=== PATIENT | male | born 1955 | race American Indian/Alaskan Native ===

== ENCOUNTER 2018-09-16 19:32 | Inpatient (IN) | payer BC, OTHER ==
[2018-09-16] MEDS ORDERED: NITROSTAT SL ONE ×2 (19:41→19:53)
[2018-09-16] MEDS ORDERED: ASPIRIN PO ONE (19:43)
[2018-09-16] MEDS ORDERED: LASIX ONE (19:44)
--- NOTE | 2018-09-16 19:51 | Emergency Department Report ---
ED Shortness of Breath HPI - General Chief Complaint: Dyspnea/Respdistress Stated Complaint: LUIS FELIPE Time Seen by Provider: 09/16/18 19:46 Source: EMS Mode of arrival: Stretcher Limitations: No Limitations - History of Present Illness Initial Comments: Patient is 63 years old male with history of congestive heart failure, diabetes and CVA. Patient presented to the ER via EMS in acute respiratory distress. EMS stated that patient's initial oxygen saturation was in upper 80s, improved to 99% on nonrebreather. In the emergency room patient with difficulty in breathing with a blood pressure of 225/115. Patient immediately started on BiPAP. Receive Lasix 60 IV, nitroglycerin. MD Complaint: shortness of breath, chest pain -: Gradual, days(s) (2) Known History Of: congestive heart failure, diabetes - Related Data Home Medications Medication Instructions Recorded Confirmed Last Taken ALBUTEROL Inhaler (OR & NICU) 2 puff IH QID PRN 09/16/18 09/16/18 09/16/18 [Proair] Allopurinol [Zyloprim] 100 mg PO QDAY 09/16/18 09/16/18 09/16/18 Aspirin [Adult Aspirin] 81 mg PO DAILY 09/16/18 09/16/18 09/16/18 AtorvaSTATin [Lipitor] 40 mg PO QHS 09/16/18 09/16/18 09/16/18 Carvedilol [Coreg] 25 mg PO BID 09/16/18 09/16/18 09/16/18 Furosemide [Lasix TAB] 40 mg PO QDAY 09/16/18 09/16/18 09/16/18 Gabapentin [Neurontin] 600 mg PO BID 09/16/18 09/16/18 09/16/18 HYDROcodone/APAP 5-325 [[place] 1 each PO Q6HR PRN 09/16/18 09/16/18 09/16/18 5/325] Ibuprofen [Motrin] 800 mg PO Q8HR PRN 09/16/18 09/16/18 09/16/18 Isosorbide Mononitrate 60 mg PO DAILY 09/16/18 09/16/18 09/16/18 Lisinopril [Zestril TAB] 40 mg PO QDAY 09/16/18 09/16/18 09/16/18 Allergies Allergy/AdvReac Type Severity Reaction Status Date / Time No Known Allergies Allergy Unverified 02/23/15 14:38 ED Review of Systems ROS: Stated complaint: LUIS FELIPE Other details as noted in HPI Comment: All other systems reviewed and negative Constitutional: denies: chills, fever Respiratory: orthopnea, shortness of breath, SOB with exertion, SOB at rest. denies: wheezing Cardiovascular: chest pain. denies: palpitations Gastrointestinal: denies: abdominal pain, nausea, vomiting, diarrhea, constipation, hematemesis, hematochezia Musculoskeletal: denies: back pain Neurological: denies: headache, weakness ED Past Medical Hx - Past Medical History Previous Medical History?: Yes Hx Hypertension: Yes Hx CVA: Yes Hx Congestive Heart Failure: Yes Hx Diabetes: Yes - Surgical History Past Surgical History?: Yes Additional Surgical History: Right knee replacement. Twan Hip replacement - Social History Smoking Status: Unknown if ever smoked - Medications Home Medications: Home Medications Medication Instructions Recorded Confirmed Last Taken Type ALBUTEROL Inhaler (OR & NICU) 2 puff IH QID PRN 09/16/18 09/16/18 09/16/18 History [Proair] Allopurinol [Zyloprim] 100 mg PO QDAY 09/16/18 09/16/18 09/16/18 History Aspirin [Adult Aspirin] 81 mg PO DAILY 09/16/18 09/16/18 09/16/18 History AtorvaSTATin [Lipitor] 40 mg PO QHS 09/16/18 09/16/18 09/16/18 History Carvedilol [Coreg] 25 mg PO BID 09/16/18 09/16/18 09/16/18 History Furosemide [Lasix TAB] 40 mg PO QDAY 09/16/18 09/16/18 09/16/18 History Gabapentin [Neurontin] 600 mg PO BID 09/16/18 09/16/18 09/16/18 History HYDROcodone/APAP 5-325 [[place] 1 each PO Q6HR PRN 09/16/18 09/16/18 09/16/18 History 5/325] Ibuprofen [Motrin] 800 mg PO Q8HR PRN 09/16/18 09/16/18 09/16/18 History Isosorbide Mononitrate 60 mg PO DAILY 09/16/18 09/16/18 09/16/18 History Lisinopril [Zestril TAB] 40 mg PO QDAY 09/16/18 09/16/18 09/16/18 History ED Physical Exam - General Limitations: No Limitations General appearance: alert, in distress - Head Head exam: Present: atraumatic, normocephalic, normal inspection - Eye Eye exam: Present: normal appearance - ENT ENT exam: Present: normal exam, normal orophraynx, mucous membranes moist - Neck Neck exam: Present: normal inspection, full ROM. Absent: tenderness, meningismus, lymphadenopathy, thyromegaly - Respiratory Respiratory exam: Present: respiratory distress, rales, accessory muscle use, decreased breath sounds, prolonged expiratory. Absent: wheezes, rhonchi, stridor, chest wall tenderness - Cardiovascular Cardiovascular Exam: Present: tachycardia, gallop - GI/Abdominal GI/Abdominal exam: Present: soft, distended, normal bowel sounds. Absent: tenderness, guarding, rebound, rigid, organomegaly, mass, bruit, pulsatile mass, hernia - Extremities Exam Extremities exam: Present: normal inspection, full ROM, normal capillary refill, pedal edema. Absent: calf tenderness - Back Exam Back exam: Present: normal inspection, full ROM. Absent: tenderness, CVA tenderness (R), CVA tenderness (L), muscle spasm, paraspinal tenderness, vertebral tenderness, rash noted - Neurological Exam Neurological exam: Present: alert, oriented X3, CN II-XII intact - Psychiatric Psychiatric exam: Present: normal mood - Skin Skin exam: Present: warm, intact, normal color ED Course Vital Signs 09/16/18 09/16/18 09/16/18 19:36 19:38 19:48 Pulse Rate 106 H 90 Respiratory 29 H 30 H 32 H Rate Blood Pressure Blood Pressure [Right] O2 Sat by Pulse 99 99 100 Oximetry 09/16/18 09/16/18 09/16/18 20:00 20:01 20:15 Pulse Rate 85 84 Respiratory 17 21 Rate Blood Pressure 171/99 154/91 Blood Pressure 171/99 [Right] O2 Sat by Pulse 100 100 Oximetry 09/16/18 09/16/18 09/16/18 20:30 20:45 21:00 Pulse Rate 81 89 81 Respiratory 19 17 17 Rate Blood Pressure 143/82 163/99 158/83 Blood Pressure [Right] O2 Sat by Pulse 100 Oximetry 06/06/0509/16/18 09/16/18 21:15 21:30 21:45 Pulse Rate 80 80 77 Respiratory 19 11 L 15 Rate Blood Pressure 164/97 151/80 151/80 Blood Pressure [Right] O2 Sat by Pulse Oximetry 09/16/18 09/16/18 09/16/18 22:00 22:15 22:30 Pulse Rate 79 85 80 Respiratory 12 19 17 Rate Blood Pressure 174/97 192/110 168/84 Blood Pressure [Right] O2 Sat by Pulse Oximetry 09/16/18 09/16/18 09/16/18 22:45 23:27 23:30 Pulse Rate 82 84 Respiratory 20 12 22 Rate Blood Pressure 187/102 187/102 173/88 Blood Pressure [Right] O2 Sat by Pulse Oximetry - Reevaluation(s) Reevaluation #1: 09/16/18 23:33 [facility] was paged several times but every time they will say that Dr. German is busy and he will call back. - Consultations Consultation #1: 09/16/18 23:52 I discussed the patient is Dr. German from [facility], informed about the patient Dr. German stated that patient can be admitted to [facility] and he will follow up with the patient in the morning. ED Medical Decision Making - Lab Data Result diagrams: 09/16/18 19:54 09/16/18 19:54 Critical Care Time: Yes Critical care time in (mins) excluding proc time.: 45 Critical care attestation.: If time is entered above; I have spent that time in minutes in the direct care of this critically ill patient, excluding procedure time. ED Disposition Clinical Impression: Acute respiratory failure Qualifiers: Respiratory failure complication: hypoxia Qualified Code(s): J96.01 - Acute respiratory failure with hypoxia CHF exacerbation Qualifiers: Heart failure type: systolic Qualified Code(s): I50.23 - Acute on chronic systolic (congestive) heart failure Disposition: OP ADMIT IP TO THIS HOSP Is pt being admited?: Yes Condition: Stable Referrals: KORI LATHAM MD [Primary Care Provider] - 3-5 Days
[2018-09-16] MEDS ORDERED: LASIX IV ONE (19:53)
[2018-09-16 20:28] LABS: Hematocrit 35.8 % (35.5-45.6); Mean Corpuscular HGB Conc 31 % (32-34); Mean Corpuscular Volume 76 fl (84-94); Platelet Count 331 K/mm3 (140-440); Red Blood Count 4.74 M/mm3 (3.65-5.03)
[2018-09-16 20:33] LABS: INR 1.13 (0.87-1.13)
[2018-09-16 20:34] LABS: Partial Thromboplastin Time 25.9 Sec. (24.2-36.6)
[2018-09-16 20:44] LABS: BUN/Creatinine Ratio 11; Blood Urea Nitrogen 9 mg/dL (9-20); Calcium 8.4 mg/dL (8.4-10.2); Hemolysis Index 13
[2018-09-16 21:08] LABS: Band Neutrophils # (Manual) 0.1 K/mm3; Eosinophils % (Manual) 0 % (0.0-4.3); Total Cells Counted 100
[2018-09-16 21:09] LABS: Alanine Aminotransferase 11 units/L (7-56); Albumin 3.2 g/dL (3.9-5); Anisocytosis 1+; Hypochromasia 1+; Ovalocytes Few
--- NOTE | 2018-09-16 21:09 | XRay Report ---
PROCEDURE: XR CHEST 1V AP TECHNIQUE: Chest radiograph single view. HISTORY: Chest Pain COMPARISONS: None . FINDINGS: Heart: Normal. Mediastinum/Vessels: Normal. Lungs/Pleural space: Normal. Bony thorax: No acute osseous abnormality. Life support devices: None. IMPRESSION: No acute cardiopulmonary abnormality. This document is electronically signed by Valente Parker MD., September 16 2018 10:07:25 PM ET
[2018-09-16 21:10] LABS: Giant Platelets Few; Large Platelets Few; Platelet Estimate Consistent w Auto; Poikilocytosis Few
[2018-09-16 21:11] LABS: Bilirubin,Direct < 0.2 mg/dL (0-0.2)
--- NOTE | 2018-09-16 21:33 | History and Physical Report ---
History of Present Illness Chief complaint: I cant breathe History of present illness: 63 YO Male with CVA, Systolic CHF, DM, Obesity Hypoventilation, DANIS presents to ED for evaluation. Pt states that he has experienced shortness of breath over the past 2 days with progressively worsening symptoms over the same time frame. Pt acknowledges dypsnea on exertion, dypsnea at rest, leg edema, decreased exercise tolerance, Orthopnea/PND, as well as High Blood Pressure. Pt acknowledges 12 lbs weight gain over the past 1week as well as dietary noncompliance. EMS notified, and upon arrival the patient was found to be in r espiratory distress with pulse oximetry in the 80's on room air. Pt transported to [facility]. Pt seen and evaluated in ED and found to have CHF Decompensation complicated by Acute Hypoxemic Respiratory Failure and Hypertensive Urgency. Pt initiated on NIPPV and diuretic therapy with improvement in symptoms. Pt denies fever, chills, CP, Palpitations, NVD, Trauma, BRBPR, Skin Rash, Productive cough, unilateral leg swelling, calf pain, individual/family history of DVT/PE. Pt admitted to telemetry and initiated on F protocol. Cardiology consulted in ED. No prior admission for review. All medication listed at time of admission has been reconciled. Past History Past Medical History: diabetes, heart failure, hypertension, stroke, other (Obesity Hypoventiliation, DANIS) Past Surgical History: total hip replacement, total knee replacement Social history: , Lives alone. denies: smoking, alcohol abuse, prescription drug abuse Family history: diabetes, hypertension Medications and Allergies Allergies Allergy/AdvReac Type Severity Reaction Status Date / Time No Known Allergies Allergy Unverified 02/23/15 14:38 Home Medications Medication Instructions Recorded Confirmed Last Taken Type ALBUTEROL Inhaler (OR & NICU) 2 puff IH QID PRN 09/16/18 09/16/18 09/16/18 History [Proair] Allopurinol [Zyloprim] 100 mg PO QDAY 09/16/18 09/16/18 09/16/18 History Aspirin [Adult Aspirin] 81 mg PO DAILY 09/16/18 09/16/18 09/16/18 History AtorvaSTATin [Lipitor] 40 mg PO QHS 09/16/18 09/16/18 09/16/18 History Carvedilol [Coreg] 25 mg PO BID 09/16/18 09/16/18 09/16/18 History Furosemide [Lasix TAB] 40 mg PO QDAY 09/16/18 09/16/18 09/16/18 History Gabapentin [Neurontin] 600 mg PO BID 09/16/18 09/16/18 09/16/18 History HYDROcodone/APAP 5-325 [[place] 1 each PO Q6HR PRN 09/16/18 09/16/18 09/16/18 History 5/325] Ibuprofen [Motrin] 800 mg PO Q8HR PRN 09/16/18 09/16/18 09/16/18 History Isosorbide Mononitrate 60 mg PO DAILY 09/16/18 09/16/18 09/16/18 History Lisinopril [Zestril TAB] 40 mg PO QDAY 09/16/18 09/16/18 09/16/18 History Review of Systems Constitutional: weight gain, no weight loss, no fever, no chills Ears, nose, mouth and throat: no ear pain, no ear discharge, no tinnitis, no decreased hearing, no nose pain, no nasal congestion Cardiovascular: orthopnea, shortness of breath, dyspnea on exertion, paroxysmal nocturnal dyspnea, high blood pressure, leg edema, decreased exercise tolerance, no chest pain, no rapid/irregular heart beat, no syncope, no lightheadedness Respiratory: no cough, no cough with sputum, no excessive sputum, no hemoptysis, no shortness of breath Gastrointestinal: no nausea, no vomiting, no diarrhea Genitourinary Male: no hematuria, no flank pain, no discharge, no urinary frequency, no urinary hesitancy Rectal: no pain, no incontinence, no bleeding Musculoskeletal: no neck pain, no shooting arm pain, no arm numbness/tingling, no low back pain Integumentary: no rash, no pruritis, no sores Neurological: no head injury, no transient paralysis, no weakness, no parathesias, no numbness, no seizures, no syncope Psychiatric: no anxiety, no memory loss, no sleep disturbances, no insomnia, no change in libido Endocrine: no cold intolerance, no heat intolerance, no polyphagia, no excessive thirst, no polydipsia, no polyuria, no nocturia Hematologic/Lymphatic: no easy bruising, no easy bleeding, no lymphadenopathy Allergic/Immunologic: no urticaria, no allergic rhinitis, no persistent infections, no anaphylaxis Exam - Constitutional Vitals: Temp Pulse Resp BP Pulse Ox 90 32 H 171/99 100 09/16/18 19:48 09/16/18 19:48 09/16/18 20:01 09/16/18 19:48 General appearance: Present: mild distress, obese - EENT Eyes: Present: PERRL ENT: hearing intact, clear oral mucosa - Neck Neck: Present: supple, normal ROM - Respiratory Respiratory effort: labored Respiratory: bilateral: diminished, rhonchi - Cardiovascular Heart Sounds: Present: S1 & S2. Absent: rub, click - Extremities Extremities: no ischemia Extremity abnormal: edema Peripheral Pulses: within normal limits - Abdominal General gastrointestinal: Present: soft, non-tender, non-distended, normal bowel sounds Male genitourinary: Present: normal - Integumentary Integumentary: Present: clear, warm, dry - Musculoskeletal Musculoskeletal: gait normal, strength equal bilaterally - Psychiatric Psychiatric: appropriate mood/affect, intact judgment & insight - Neurologic Neurologic: CNII-XII intact, moves all extremities Results - Labs CBC & Chem 7: 09/16/18 19:54 09/16/18 19:54 Labs: Abnormal lab results 09/16/18 09/16/18 09/16/18 Range/Units 19:54 19:54 19:54 Hgb 11.0 L (11.8-15.2) gm/dl MCV 76 L (84-94) fl MCH 23 L (28-32) pg MCHC 31 L (32-34) % RDW 21.0 H (13.2-15.2) % Seg Neuts % (Manual) 75.0 H (40.0-70.0) % Basophils % (Manual) 3.0 H (0.0-1.8) % Nucleated RBC % 1.0 H (0.0-0.9) % Basophils # (Manual) 0.3 H (0.0-0.1) K/mm3 PT 15.2 H (12.2-14.9) Sec. Glucose 234 H (75-100) mg/dL NT-Pro-B Natriuret Pep 1522 H (0-900) pg/mL Albumin 3.2 L (3.9-5) g/dL Assessment and Plan - Patient Problems (1) CHF exacerbation Current Visit: No Status: Acute Qualifiers: Heart failure type: systolic Qualified Code(s): I50.23 - Acute on chronic systolic (congestive) heart failure Plan to address problem: CHF Protocol: Admit to telemetry, supplemental oxygen, strict I/O, daily weight, BNP, Echo, cardiology consulted in ED, thyroid panel, magnesium level, chest x ray, afterload reduction. (2) Acute respiratory failure Current Visit: No Status: Acute Qualifiers: Respiratory failure complication: hypoxia Qualified Code(s): J96.01 - Acute respiratory failure with hypoxia Plan to address problem: Supplemental oxygen, nebulizer therapy, d dimer, CTA chest, pulse oximetry, chest x ray. NIPPV as clinically indicated, ABG. (3) Obesity hypoventilation syndrome Current Visit: Yes Status: Acute Plan to address problem: supplemental oxygen, NIPPV as clinically indicated, pulmonary toilet, balanced diet, increased physical activity at discharge. (4) DANIS (obstructive sleep apnea) Current Visit: Yes Status: Acute Plan to address problem: NIPPV QHS, pulse oximetry, (5) Hypertensive urgency, malignant Current Visit: Yes Status: Acute Plan to address problem: Monitor BP q shift, IV hydralazine prn for SBP >155, continue medical management. (6) Diabetes Current Visit: Yes Status: Acute Plan to address problem: ADA diet, insulin, accu check, hypoglycemia protocol. (7) DVT prophylaxis Current Visit: Yes Status: Acute Plan to address problem: SCD to BLE while in bed, prophylactic lovenox
[2018-09-16] MEDS ORDERED: TYLENOL PO PRN (22:44)
[2018-09-16] MEDS ORDERED: PROVENTIL IH PRN (22:44)
[2018-09-16] MEDS ORDERED: ZOFRAN IV PRN (22:44)
[2018-09-16] MEDS ORDERED: SODIUM CHLORIDE FLUSH SYRINGE 10 ML IV PRN (22:44)
[2018-09-16] MEDS ORDERED: APRESOLINE IV PRN (22:48)
[2018-09-16] MEDS ORDERED: IBUPROFEN PO PRN (23:18)
[2018-09-16] MEDS ORDERED: NORCO 5/325 PO PRN (23:18)
[2018-09-16 23:42] LABS: Free T4 (Free Thyroxine) 1.24 ng/dL (0.76-1.46)
--- NOTE | 2018-09-16 23:43 | Cat Scan Report ---
PROCEDURE: CT ANGIO CHEST TECHNIQUE: Computerized tomographic angiography of the chest was performed after the IV injection of iodinated nonionic contrast including image processing. The image data was postprocessed using 2-di mensional multiplanar reformatted (MPR) and 3-dimensional (MIP and/or volume rendered) techniques. Au tomated exposure control, adjustment of mA and/or kV according to patient size, or iterative reconstr uction dose optimization techniques were utilized. HISTORY: dypsnea FINDINGS: Contrast-enhanced CT angiography of the chest was performed following the intravenous admin istration 100 cc Omnipaque 350. Sagittal and coronal MIP three-dimensional reformatted images were [employer]. These images demonstrate no CT evidence of pulmonary thromboembolic disease. There is no aortic disse ction. There are bilateral pleural effusions with bibasilar dependent atelectasis. There is some patchy right upper lobe airspace disease, images 71-75 which could represent pneumonia. In the upper abdomen, there is an inferior vena cava filter. There is fatty infiltration of the liver . IMPRESSION: No CT evidence of pulmonary thromboembolic disease Bilateral pleural effusions Patchy right upper lobe airspace disease which could represent pneumonia This document is electronically signed by Rolando Cancino MD., September 17 2018 12:41:38 AM ET
[2018-09-17 02:39] LABS: Mean Corpuscular HGB Conc 31 % (32-34); Mean Corpuscular Volume 74 fl (84-94); Platelet Count 286 K/mm3 (140-440); Red Blood Count 4.96 M/mm3 (3.65-5.03)
[2018-09-17 02:47] LABS: Hematocrit 36.7 % (35.5-45.6); Hemoglobin 11.2 gm/dl (11.8-15.2); Red Cell Distribution Width 21.7 % (13.2-15.2)
[2018-09-17 02:59] LABS: Alanine Aminotransferase 15 units/L (7-56); Albumin 3.2 g/dL (3.9-5); BUN/Creatinine Ratio 13; Blood Urea Nitrogen 12 mg/dL (9-20); Calcium 8.5 mg/dL (8.4-10.2); Hemolysis Index 2
[2018-09-17 05:45] LABS: Anisocytosis 1+; Band Neutrophils # (Manual) 0.1 K/mm3; Basophils % (Manual) 0 % (0.0-1.8); Eosinophils % (Manual) 0 % (0.0-4.3); Hypochromasia 1+; Total Cells Counted 100
[2018-09-17] MEDS: LASIX IV SCH ×2 (06:37→17:11)
[2018-09-17] MEDS: HALFPRIN EC PO SCH (09:11)
[2018-09-17] MEDS: ZYLOPRIM PO SCH (09:12)
[2018-09-17] MEDS: PEPCID PO SCH ×2 (09:12→21:51)
[2018-09-17] MEDS: IMDUR PO SCH (09:12)
[2018-09-17] MEDS: NEURONTIN PO SCH ×2 (09:13→21:51)
[2018-09-17] MEDS: ZESTRIL PO SCH (09:13)
[2018-09-17] MEDS: SODIUM CHLORIDE FLUSH SYRINGE 10 ML IV SCH ×2 (09:13→21:51)
[2018-09-17] MEDS ORDERED: ZESTRIL PO SCH (10:00)
[2018-09-17] MEDS: COREG PO SCH ×2 (10:55→21:51)
[2018-09-17] MEDS: NORVASC PO SCH (10:55)
[2018-09-17] MEDS ORDERED: AFLURIA QUAD 2018-2019 SYRINGE IM ONE (12:00)
[2018-09-17] MEDS: APRESOLINE IV PRN ×4 (12:19→21:55)
--- NOTE | 2018-09-17 12:32 | Consultation ---
History of Present Illness Consult date: 09/17/18 Consult reason: congestive heart failure History of present illness: Patient is a 63 year old male who presented hypertensive with shortness of b reath, acute respiratory distress, placed on BIPAP in the emergency department. Chest CTA reports bilateral pleural effusion with right upper lobe patchy airspace suspicious for pneumonia. No evidence of pulmonary embolism. His ECG is sinus rhythm LVH with incomplete RBBB. Patient usually received [facility] at [facility]. He gives a history of prior CVA, Hypertension and Diabetes. 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 There were no complaints of chest pain and today, he reports his breathing is better. Past History Past Medical History: diabetes, hypertension, stroke, other (Obesity Hypoventiliation, DANIS) Past Surgical History: total hip replacement, total knee replacement Social history: , Lives alone. denies: smoking, alcohol abuse, prescription drug abuse Family history: diabetes, hypertension Medications and Allergies Allergies Allergy/AdvReac Type Severity Reaction Status Date / Time No Known Allergies Allergy Unverified 02/23/15 14:38 Home Medications Medication Instructions Recorded Confirmed Last Taken Type ALBUTEROL Inhaler (OR & NICU) 2 puff IH QID PRN 09/16/18 09/16/18 09/16/18 History [Proair] Allopurinol [Zyloprim] 100 mg PO QDAY 09/16/18 09/16/18 09/16/18 History Aspirin [Adult Aspirin] 81 mg PO DAILY 09/16/18 09/16/18 09/16/18 History AtorvaSTATin [Lipitor] 40 mg PO QHS 09/16/18 09/16/18 09/16/18 History Carvedilol [Coreg] 25 mg PO BID 09/16/18 09/16/18 09/16/18 History Furosemide [Lasix TAB] 40 mg PO QDAY 09/16/18 09/16/18 09/16/18 History Gabapentin [Neurontin] 600 mg PO BID 09/16/18 09/16/18 09/16/18 History HYDROcodone/APAP 5-325 [[place] 1 each PO Q6HR PRN 09/16/18 09/16/18 09/16/18 History 5/325] Ibuprofen [Motrin] 800 mg PO Q8HR PRN 09/16/18 09/16/18 09/16/18 History Isosorbide Mononitrate 60 mg PO DAILY 09/16/18 09/16/18 09/16/18 History Lisinopril [Zestril TAB] 40 mg PO QDAY 09/16/18 09/16/18 09/16/18 History Active Meds: Active Medications Acetaminophen (Tylenol) 650 mg PO Q4H PRN PRN Reason: Pain MILD(1-3)/Fever >100.5/HINDS Acetaminophen/Hydrocodone Bitart ([place] 5/325) 1 each PO Q6H PRN PRN Reason: Pain (4-6) Albuterol (Proventil) 2.5 mg IH Q4HRT PRN PRN Reason: Shortness Of Breath Allopurinol (Zyloprim) 100 mg PO QDAY [facility] Last Admin: 09/17/18 09:12 Dose: 100 mg Documented by: Amlodipine Besylate (Norvasc) 10 mg PO QDAY [facility] Last Admin: 09/17/18 10:55 Dose: 10 mg Documented by: Aspirin (Halfprin Ec) 81 mg PO DAILY [facility] Last Admin: 09/17/18 09:11 Dose: 81 mg Documented by: Atorvastatin Calcium (Lipitor) 40 mg PO QHS [facility] Carvedilol (Coreg) 12.5 mg PO BID [facility] Last Admin: 09/17/18 10:55 Dose: 12.5 mg Documented by: Enoxaparin Sodium (Lovenox) 40 mg SUB-Q QDAY@2200 [facility] Famotidine (Pepcid) 10 mg PO BID [facility] Last Admin: 09/17/18 09:12 Dose: 10 mg Documented by: Furosemide (Lasix) 40 mg IV BID@0600,1800 [facility] Last Admin: 09/17/18 06:37 Dose: 40 mg Documented by: Gabapentin (Neurontin) 600 mg PO BID [facility] Last Admin: 09/17/18 09:13 Dose: 600 mg Documented by: Hydralazine HCl (Apresoline) 10 mg IV Q3H PRN PRN Reason: Hypertension Last Admin: 09/17/18 12:19 Dose: 10 mg Documented by: Ibuprofen (Ibuprofen) 800 mg PO Q8H PRN PRN Reason: Pain , Severe (7-10) Isosorbide Mononitrate (Imdur) 60 mg PO DAILY [facility] Last Admin: 09/17/18 09:12 Dose: 60 mg Documented by: Lisinopril (Zestril) 40 mg PO QDAY [facility] Last Admin: 09/17/18 09:13 Dose: 40 mg Documented by: Ondansetron HCl (Zofran) 4 mg IV Q8H PRN PRN Reason: Nausea And Vomiting Sodium Chloride (Sodium Chloride Flush Syringe 10 Ml) 10 ml IV BID [facility] Last Admin: 09/17/18 09:13 Dose: 10 ml Documented by: Sodium Chloride (Sodium Chloride Flush Syringe 10 Ml) 10 ml IV PRN PRN PRN Reason: LINE FLUSH Physical Examination Vital Signs Pulse Resp Pulse Ox 106 H 29 H 99 09/16/18 19:36 09/16/18 19:36 09/16/18 19:36 General appearance: no acute distress HEENT: Positive: PERRL Neck: Positive: trachea midline Cardiac: Positive: Reg Rate and Rhythm Lungs: Positive: Decreased Breath Sounds Neuro: Positive: Weakness Extremities: Absent: edema Results 09/17/18 02:15 09/17/18 02:15 Cardiac Enzymes 09/16/18 09/17/18 Range/Units 19:54 02:15 AST 12 13 (5-40) units/L Coagulation 09/16/18 Range/Units 19:54 PT 15.2 H (12.2-14.9) Sec. INR 1.13 (0.87-1.13) APTT 25.9 (24.2-36.6) Sec. CBC 09/16/18 09/17/18 Range/Units 19:54 02:15 WBC 9.4 11.6 H (4.5-11.0) K/mm3 RBC 4.74 4.96 (3.65-5.03) M/mm3 Hgb 11.0 L 11.2 L (11.8-15.2) gm/dl Hct 35.8 36.7 (35.5-45.6) % Plt Count 331 286 (140-440) K/mm3 Comprehensive Metabolic Panel 09/16/18 09/17/18 Range/Units 19:54 02:15 Sodium 139 138 (137-145) mmol/L Potassium 4.1 4.1 (3.6-5.0) mmol/L Chloride 103.1 100.6 (98-107) mmol/L Carbon Dioxide 23 25 (22-30) mmol/L BUN 9 12 (9-20) mg/dL Creatinine 0.8 0.9 (0.8-1.5) mg/dL Glucose 234 H 296 H (75-100) mg/dL Calcium 8.4 8.5 (8.4-10.2) mg/dL Direct Bilirubin < 0.2 (0-0.2) mg/dL Indirect Bilirubin 0.2 mg/dL AST 12 13 (5-40) units/L ALT 11 15 (7-56) units/L Alkaline Phosphatase 113 110 (35-129) units/L Total Protein 7.2 7.1 (6.3-8.2) g/dL Albumin 3.2 L 3.2 L (3.9-5) g/dL Assessment and Plan Acute respiratory distress Hypertension Diabetes Prior CVA
[2018-09-17] MEDS: LOVENOX SUB-Q SCH (21:50)
[2018-09-18] MEDS: LASIX IV SCH ×2 (05:55→18:05)
--- NOTE | 2018-09-18 06:42 | Progress Note ---
Assessment and Plan (1) CHF exacerbation Current Visit: No Status: Acute Qualifiers: Heart failure type: systolic Qualified Code(s): I50.23 - Acute on chronic systolic (congestive) heart failure Plan to address problem: CHF Protocol: Admit to telemetry, supplemental oxygen, strict I/O, daily weight, BNP, Echo, cardiology consulted in ED, thyroid panel, magnesium level, chest x ray, afterload reduction. Symptomatically better (2) Hypertensive urgency, malignant Current Visit: Yes Status: Acute Plan to address problem: BP still high Amlodipine and Coreg added IV Hydralazine q3 h 10 mg prn ordered and given (2) Acute respiratory failure Current Visit: No Status: Acute Qualifiers: Respiratory failure complication: hypoxia Qualified Code(s): J96.01 - Acute respiratory failure with hypoxia Plan to address problem: Improving (3) Obesity hypoventilation syndrome Current Visit: Yes Status: Acute Plan to address problem: Counselled about loosing weight (4) DANIS (obstructive sleep apnea) Current Visit: Yes Status: Acute Plan to address problem: NIPPV QHS, pulse oximetry, (6) Diabetes Current Visit: Yes Status: Acute Plan to address problem: ADA diet, insulin, accu check, hypoglycemia protocol. (7) DVT prophylaxis Current Visit: Yes Status: Acute Plan to address problem: SCD to BLE while in bed, prophylactic lovenox Subjective Date of service: 09/17/18 Principal diagnosis: Hypertensive emergency and CHF exacerbation Interval history: BP still high,SOB better Objective - Constitutional Vitals: Vital Signs - 12hr 09/17/18 09/17/18 09/17/18 19:55 20:24 20:40 Temperature 98.3 F Pulse Rate 86 Respiratory 20 22 Rate Blood Pressure 190/78 O2 Sat by Pulse 98 97 Oximetry 09/17/18 09/17/18 09/18/18 22:00 23:16 00:05 Temperature 97.5 F L Pulse Rate 88 74 72 Respiratory 17 19 Rate Blood Pressure 155/79 O2 Sat by Pulse 100 99 Oximetry 09/18/18 04:30 Temperature 97.6 F Pulse Rate 65 Respiratory 20 Rate Blood Pressure 166/90 O2 Sat by Pulse 100 Oximetry General appearance: Present: no acute distress, well-nourished - EENT Eyes: PERRL, EOM intact ENT: hearing intact, clear oral mucosa Ears: bilateral: normal - Neck Neck: supple, normal ROM - Respiratory Respiratory effort: normal Respiratory: bilateral: CTA, rales, rhonchi - Breasts Breasts: normal - Cardiovascular Heart rate: 78 Rhythm: regular Heart Sounds: Present: S1 & S2. Absent: gallop, rub Extremities: pulses intact, No edema, normal color, Full ROM Extremity abnormal: edema (2 plus) - Gastrointestinal General gastrointestinal: Present: soft, non-tender, non-distended, normal bowel sounds - Genitourinary Male genitourinary: normal - Integumentary Integumentary: clear, warm, dry - Musculoskeletal Musculoskeletal: 1, strength equal bilaterally - Neurologic Neurologic: moves all extremities - Psychiatric Psychiatric: memory intact, appropriate mood/affect, intact judgment & insight - Labs CBC & Chem 7: 09/17/18 02:15 09/17/18 02:15
--- NOTE | 2018-09-18 10:50 | Progress Note ---
Assessment and Plan Acute respiratory distress Shortness of breath Hypertension Diabetes Prior CVA Recommendations: Echocardiogram for left ventricular function and valvular function assessment. Pre-discharge persantine thallium stress test. Subjective Date of service: 09/18/18 Principal diagnosis: Hypertensive emergency and CHF exacerbation Interval history: No cardiac events reported overnight. He reports his breathing is better. Awaits echocardiogram for LVEF assessment. Objective Vital Signs Temp Pulse Resp BP Pulse Ox 09/18/18 07:57 98.1 F 76 18 157/89 100 09/18/18 04:30 97.6 F 65 20 166/90 100 09/18/18 00:05 97.5 F L 72 19 155/79 99 09/17/18 23:16 74 17 100 09/17/18 22:00 88 09/17/18 20:40 22 09/17/18 20:24 98.3 F 86 20 190/78 97 09/17/18 19:55 98 09/17/18 17:58 182/101 09/17/18 17:54 98.3 F 95 H 18 182/101 98 09/17/18 16:00 71 09/17/18 15:22 187/94 09/17/18 14:51 97 09/17/18 12:42 98 09/17/18 12:37 95 09/17/18 12:19 185/106 09/17/18 11:39 98.5 F 81 18 168/98 96 09/17/18 10:55 174/88 - Physical Examination General: No Apparent Distress HEENT: Positive: PERRL Neck: Positive: trachea midline Cardiac: Positive: Reg Rate and Rhythm Lungs: Positive: Decreased Breath Sounds Neuro: Positive: Weakness Extremities: Absent: edema
[2018-09-18] MEDS: COREG PO SCH ×2 (12:06→21:41)
[2018-09-18] MEDS: NORVASC PO SCH (12:06)
[2018-09-18] MEDS: IMDUR PO SCH (12:06)
[2018-09-18] MEDS: PEPCID PO SCH ×2 (12:06→21:41)
[2018-09-18] MEDS: ZYLOPRIM PO SCH (12:06)
[2018-09-18] MEDS: NEURONTIN PO SCH ×2 (12:06→21:42)
[2018-09-18] MEDS: ZESTRIL PO SCH (12:06)
[2018-09-18] MEDS: HALFPRIN EC PO SCH (12:07)
[2018-09-18] MEDS: SODIUM CHLORIDE FLUSH SYRINGE 10 ML IV SCH ×2 (12:07→21:42)
--- NOTE | 2018-09-18 14:43 | Progress Note ---
Assessment and Plan Assessment and plan: CTA showed right upper lobe pneumonia and have started him with Rocephin and azithromycin. He has leukocytosis and will follow CBC tomorrow. (1) CHF exacerbation Current Visit: No Status: Acute Qualifiers: Heart failure type: systolic Qualified Code(s): I50.23 - Acute on chronic systolic (congestive) heart failure Plan to address problem: CHF Protocol: The patient is on IV Lasix and appropriate home medications were continued. Echo was done and showed ejection fraction of 30%. supplemental oxygen, strict I/O, daily weight. Cardiology consult appreciated. Symptomatically better Patient will have stress test tomorrow morning (2) Hypertensive urgency, malignant Current Visit: Yes Status: Acute Plan to address problem: BP still high but better now Amlodipine and Coreg added IV Hydralazine q3 h 10 mg prn ordered and given (2) Acute respiratory failure Current Visit: No Status: Acute Qualifiers: Respiratory failure complication: hypoxia Qualified Code(s): J96.01 - Acute respiratory failure with hypoxia Plan to address problem: Improving, patient may have obstructive sleep apnea and on CPAP at night (3) Obesity hypoventilation syndrome Current Visit: Yes Status: Acute Plan to address problem: Counselled about loosing weight CPAP daily at bedtime (4) DANIS (obstructive sleep apnea) Current Visit: Yes Status: Acute Plan to address problem: NIPPV QHS, pulse oximetry, (6) Diabetes Current Visit: Yes Status: Acute Plan to address problem: ADA diet, insulin, accu check, hypoglycemia protocol. (7) DVT prophylaxis Current Visit: Yes Status: Acute Plan to address problem: SCD to BLE while in bed, prophylactic lovenox History Interval history: Patient was seen and evaluated this morning, patient was complaining SOB, saturating 100% on room air. Patient denied fever, chills, cough. Hospitalist Physical - Physical exam Narrative exam: Not in cardiopulmonary distress. Patient is on intranasal oxygen The patient is obese. Vital signs as documented. Head exam is unremarkable. No scleral icterus . Neck is without jugular venous distension, thyromegaly, or carotid bruits. Lungs are clear to auscultation. Cardiac exam reveals regular rate and Rhythm. Abdominal exam reveals normal bowel sounds. Extremities are nonedematous and both femoral and pedal pulses are normal. DRESS DESIGNER: Alert and oriented 3. No focal weakness. - Constitutional Vitals: Temp Pulse Resp BP Pulse Ox 98.1 F 73 18 157/89 100 09/18/18 07:57 09/18/18 10:00 09/18/18 07:57 09/18/18 07:57 09/18/18 07:57 General appearance: Present: no acute distress, well-nourished Results - Labs CBC & Chem 7: 09/17/18 02:15 09/17/18 02:15 Labs: Laboratory Last Values WBC 11.6 K/mm3 (4.5-11.0) H 09/17/18 02:15 RBC 4.96 M/mm3 (3.65-5.03) 09/17/18 02:15 Hgb 11.2 gm/dl (11.8-15.2) L 09/17/18 02:15 Hct 36.7 % (35.5-45.6) 09/17/18 02:15 MCV 74 fl (84-94) L 09/17/18 02:15 MCH 23 pg (28-32) L 09/17/18 02:15 MCHC 31 % (32-34) L 09/17/18 02:15 RDW 21.7 % (13.2-15.2) H 09/17/18 02:15 Plt Count 286 K/mm3 (140-440) 09/17/18 02:15 Add Manual Diff Complete 09/17/18 02:15 Total Counted 100 09/17/18 02:15 Seg Neutrophils % Windows Laptop Technician 09/17/18 02:15 Seg Neuts % (Manual) 94.0 % (40.0-70.0) H 09/17/18 02:15 1.0 % 09/17/18 02:15 4.0 % (13.4-35.0) L 09/17/18 02:15 Reactive Lymphs % (Man) 0 % 09/17/18 02:15 1.0 % (0.0-7.3) 09/17/18 02:15 0 % (0.0-4.3) 09/17/18 02:15 0 % (0.0-1.8) 09/17/18 02:15 0 % 09/17/18 02:15 0 % 09/17/18 02:15 0 % 09/17/18 02:15 0 % 09/17/18 02:15 Nucleated RBC % Not Reportable 09/17/18 02:15 Seg Neutrophils # Man 10.9 K/mm3 (1.8-7.7) H 09/17/18 02:15 Band Neutrophils # 0.1 K/mm3 09/17/18 02:15 0.5 K/mm3 (1.2-5.4) L 09/17/18 02:15 Abs React Lymphs (Man) 0.0 K/mm3 09/17/18 02:15 0.1 K/mm3 (0.0-0.8) 09/17/18 02:15 0.0 K/mm3 (0.0-0.4) 09/17/18 02:15 0.0 K/mm3 (0.0-0.1) 09/17/18 02:15 0.0 K/mm3 09/17/18 02:15 0.0 K/mm3 09/17/18 02:15 0.0 K/mm3 09/17/18 02:15 Blast Cells # 0.0 K/mm3 09/17/18 02:15 WBC Morphology Not Reportable 09/17/18 02:15 Hypersegmented Neuts Not Reportable 09/17/18 02:15 Hyposegmented Neuts Not Reportable 09/17/18 02:15 Hypogranular Neuts Not Reportable 09/17/18 02:15 Not Reportable 09/17/18 02:15 Not Reportable 09/17/18 02:15 Not Reportable 09/17/18 02:15 Not Reportable 09/17/18 02:15 Not Reportable 09/17/18 02:15 Not Reportable 09/17/18 02:15 Appears normal 09/17/18 02:15 Not Reportable 09/17/18 02:15 Plt Clumps, EDTA Not Reportable 09/17/18 02:15 Not Reportable 09/17/18 02:15 Not Reportable 09/17/18 02:15 Not Reportable 09/17/18 02:15 Plt Morphology Comment Not Reportable 09/17/18 02:15 RBC Morphology Not Reportable 09/17/18 02:15 Dimorphic RBCs Not Reportable 09/17/18 02:15 Not Reportable 09/17/18 02:15 1+ 09/17/18 02:15 Not Reportable 09/17/18 02:15 1+ 09/17/18 02:15 Not Reportable 09/17/18 02:15 Not Reportable 09/17/18 02:15 Not Reportable 09/17/18 02:15 Not Reportable 09/17/18 02:15 Not Reportable 09/17/18 02:15 Not Reportable 09/17/18 02:15 Not Reportable 09/17/18 02:15 Not Reportable 09/17/18 02:15 Not Reportable 09/17/18 02:15 Not Reportable 09/17/18 02:15 Not Reportable 09/17/18 02:15 Not Reportable 09/17/18 02:15 Not Reportable 09/17/18 02:15 Not Reportable 09/17/18 02:15 Not Reportable 09/17/18 02:15 Acanthocytes (Spur) Not Reportable 09/17/18 02:15 Rouleaux Not Reportable 09/17/18 02:15 Not Reportable 09/17/18 02:15 Not Reportable 09/17/18 02:15 Not Reportable 09/17/18 02:15 Not Reportable 09/17/18 02:15 Hem Pathologist Commnt No 09/17/18 02:15 PT 15.2 Sec. (12.2-14.9) H 09/16/18 19:54 INR 1.13 (0.87-1.13) 09/16/18 19:54 APTT 25.9 Sec. (24.2-36.6) 09/16/18 19:54 907.94 ng/mlDDU (0-234) H 09/16/18 22:33 Sodium 138 mmol/L (137-145) 09/17/18 02:15 Potassium 4.1 mmol/L (3.6-5.0) 09/17/18 02:15 Chloride 100.6 mmol/L (98-107) 09/17/18 02:15 Carbon Dioxide 25 mmol/L (22-30) 09/17/18 02:15 17 mmol/L 09/17/18 02:15 BUN 12 mg/dL (9-20) 09/17/18 02:15 0.9 mg/dL (0.8-1.5) 09/17/18 02:15 Estimated GFR > 60 ml/min 09/17/18 02:15 13 % 09/17/18 02:15 Glucose 296 mg/dL (75-100) H 09/17/18 02:15 Calcium 8.5 mg/dL (8.4-10.2) 09/17/18 02:15 Magnesium 1.50 mg/dL (1.7-2.3) L 09/16/18 23:02 0.30 mg/dL (0.1-1.2) 09/17/18 02:15 < 0.2 mg/dL (0-0.2) 09/16/18 19:54 0.2 mg/dL 09/16/18 19:54 AST 13 units/L (5-40) 09/17/18 02:15 ALT 15 units/L (7-56) 09/17/18 02:15 110 units/L (35-129) 09/17/18 02:15 < 0.010 ng/mL (0.00-0.029) 09/17/18 02:15 NT-Pro-B Natriuret Pep 1522 pg/mL (0-900) H 09/16/18 19:54 7.1 g/dL (6.3-8.2) 09/17/18 02:15 3.2 g/dL (3.9-5) L 09/17/18 02:15 0.8 % 09/17/18 02:15 TSH 1.260 mlU/mL (0.270-4.200) 09/16/18 23:02 Free T4 1.24 ng/dL (0.76-1.46) 09/16/18 23:02 Active Medications - Current Medications Current Medications: Generic Name Dose Route Start Last Admin Trade Name Freq PRN Reason Stop Dose Admin Acetaminophen 650 mg 09/16/18 22:44 Tylenol PO Q4H PRN Pain MILD(1-3)/Fever >100.5/HINDS Acetaminophen/Hydrocodone Bitart 1 each 09/16/18 23:18 [place] 5/325 PO Q6H PRN Pain (4-6) Albuterol 2.5 mg 09/16/18 22:44 Proventil IH Q4HRT PRN Shortness Of Breath Allopurinol 100 mg 09/17/18 10:00 09/18/18 12:06 Zyloprim PO 100 mg QDAY PATRICE Administration Amlodipine Besylate 10 mg 09/17/18 10:00 09/18/18 12:06 Norvasc PO 10 mg QDAY PATRICE Administration Aspirin 81 mg 09/17/18 10:00 09/18/18 12:07 Halfprin Ec PO 81 mg DAILY PATRICE Administration Atorvastatin Calcium 40 mg 09/17/18 22:00 09/17/18 21:51 Lipitor PO 40 mg QHS PATRICE Administration Carvedilol 12.5 mg 09/17/18 10:00 09/18/18 12:06 Coreg PO 12.5 mg BID PATRICE Administration Enoxaparin Sodium 40 mg 09/17/18 22:00 09/17/18 21:50 Lovenox SUB-Q 40 mg QDAY@2200 PATRICE Administration Famotidine 10 mg 09/17/18 10:00 09/18/18 12:06 Pepcid PO 10 mg BID PATRICE Administration Furosemide 40 mg 09/17/18 06:00 09/18/18 05:55 Lasix IV 40 mg BID@0600,1800 PATRICE Administration Gabapentin 600 mg 09/17/18 10:00 09/18/18 12:06 Neurontin PO 600 mg BID PATRICE Administration Hydralazine HCl 10 mg 09/17/18 09:31 09/17/18 21:55 Apresoline IV 10 mg Q3H PRN Administration Hypertension Ibuprofen 800 mg 09/16/18 23:18 Ibuprofen PO Q8H PRN Pain , Severe (7-10) Isosorbide Mononitrate 60 mg 09/17/18 10:00 09/18/18 12:06 Imdur PO 60 mg DAILY PATRICE Administration Lisinopril 40 mg 09/17/18 10:00 09/18/18 12:06 Zestril PO 40 mg QDAY PATRICE Administration Ondansetron HCl 4 mg 09/16/18 22:44 Zofran IV Q8H PRN Nausea And Vomiting Sodium Chloride 10 ml 09/17/18 10:00 09/18/18 12:07 Sodium Chloride Flush Syringe 10 Ml IV 10 ml BID PATRICE Administration Sodium Chloride 10 ml 09/16/18 22:44 Sodium Chloride Flush Syringe 10 Ml IV PRN PRN LINE FLUSH
[2018-09-18] MEDS ORDERED: ZITHROMAX PO SCH (17:00)
[2018-09-18] MEDS: LOVENOX SUB-Q SCH (21:40)
[2018-09-18] MEDS: ROCEPHIN/NS 1 GM/50 ML 1 GM/50 ML BAG IV SCH (21:42)
[2018-09-19] MEDS: LASIX IV SCH (05:11)
[2018-09-19 06:50] LABS: Basophils % (Auto) 0.5 % (0.0-1.8); Eosinophils # (Auto) 0.2 K/mm3 (0.0-0.4); Eosinophils % (Auto) 2.2 % (0.0-4.3); Hematocrit 34.6 % (35.5-45.6); Hemoglobin 10.7 gm/dl (11.8-15.2); Lymphocytes # (Auto) 1.5 K/mm3 (1.2-5.4); Lymphocytes % (Auto) 20.2 % (13.4-35.0); Mean Corpuscular HGB Conc 31 % (32-34); Mean Corpuscular Volume 75 fl (84-94); Monocytes # (Auto) 0.5 K/mm3 (0.0-0.8); Monocytes % (Auto) 6.8 % (0.0-7.3); Platelet Count 278 K/mm3 (140-440); Red Blood Count 4.63 M/mm3 (3.65-5.03)
[2018-09-19 07:01] LABS: Red Cell Distribution Width 21.6 % (13.2-15.2)
[2018-09-19 07:40] LABS: BUN/Creatinine Ratio 20; Blood Urea Nitrogen 20 mg/dL (9-20); Calcium 8.4 mg/dL (8.4-10.2); Hemolysis Index 5
[2018-09-19] MEDS ORDERED: D50W (25GM) Syringe IV PRN (08:11)
[2018-09-19] MEDS ORDERED: LEXISCAN IV ONE ×2 (10:58→11:00)
[2018-09-19] MEDS: HumaLOG SUB-Q SCH ×2 (11:30→22:22)
--- NOTE | 2018-09-19 13:17 | Event Note ---
Date: 09/19/18 Cardiomyopathy, not specified MPI showed a oderately dilated LV, LVEF 24% with patchy uptake on stress and rest imaging. Cx ischemia cannot be excluded Acute systolic heart failure Shortness of breath - slowly improving NSVT on tele Recommendations: C in am
[2018-09-19] MEDS: PEPCID PO SCH ×2 (13:59→22:19)
[2018-09-19] MEDS: NEURONTIN PO SCH ×2 (13:59→22:20)
[2018-09-19] MEDS: ZYLOPRIM PO SCH (13:59)
[2018-09-19] MEDS: HALFPRIN EC PO SCH (13:59)
[2018-09-19] MEDS: ZESTRIL PO SCH (14:00)
[2018-09-19] MEDS: NORVASC PO SCH (14:00)
[2018-09-19] MEDS: ZITHROMAX PO SCH (14:00)
[2018-09-19] MEDS: ROCEPHIN/NS 1 GM/50 ML 1 GM/50 ML BAG IV SCH (14:00)
[2018-09-19] MEDS: IMDUR PO SCH (14:00)
[2018-09-19] MEDS: SODIUM CHLORIDE FLUSH SYRINGE 10 ML IV SCH ×2 (14:02→22:23)
[2018-09-19] MEDS: COREG PO SCH ×2 (14:09→22:20)
--- NOTE | 2018-09-19 15:19 | Treadmill Report ---
INDICATION: Shortness of breath. ORDERING PHYSICIAN: Oniel Marcum MD FINDINGS: The left ventricle is moderately dilated. There is severe global left ventricular hypokinesis with left ventricular ejection fraction measured at 24%. There is patchy uptake on both rest and stress imaging. Mild to moderate reversibility in the inferolateral wall cannot be excluded. Ischemia in the circumflex artery distribution cannot be excluded. Clinical correlation is recommended. IMPRESSION: 1. Abnormal myocardial perfusion scan. 2. Moderately dilated left ventricular cavity with severe global left ventricular hypokinesis. 3. Moderate-sized moderately reversible inferolateral wall defect, ischemia in the circumflex artery distribution cannot be excluded. 4. Clinical correlation is recommended. JOB# [id number] JUVENTINO/DOMO
--- NOTE | 2018-09-19 17:44 | Progress Note ---
Assessment and Plan Assessment and plan: CTA showed right upper lobe pneumonia and have started him with Rocephin and azithromycin. He has leukocytosis yesterday and resolved today. (1) CHF exacerbation Current Visit: No Status: Acute Qualifiers: Heart failure type: systolic Qualified Code(s): I50.23 - Acute on chronic systolic (congestive) heart failure Plan to address problem: CHF Protocol: The patient is on IV Lasix and appropriate home medications were continued. Echo was done and showed ejection fraction of 30%. supplemental oxygen, strict I/O, daily weight. Cardiology consult appreciated. Symptomatically better Stress test was done today and didn't r/o ischemia, so he would have cardiac cath tomorrow morning (2) Hypertensive urgency, malignant Current Visit: Yes Status: Acute Plan to address problem: BP fairly controlled for his age Amlodipine and Coreg added IV Hydralazine q3 h 10 mg prn ordered and given (2) Acute respiratory failure Current Visit: No Status: Acute Qualifiers: Respiratory failure complication: hypoxia Qualified Code(s): J96.01 - Acute respiratory failure with hypoxia Plan to address problem: Improving, patient may have obstructive sleep apnea and on CPAP at night (3) Obesity hypoventilation syndrome Current Visit: Yes Status: Acute Plan to address problem: Counselled about loosing weight CPAP daily at bedtime (4) DANIS (obstructive sleep apnea) Current Visit: Yes Status: Acute Plan to address problem: NIPPV QHS, pulse oximetry, (6) Diabetes Current Visit: Yes Status: Acute Plan to address problem: ADA diet, insulin, accu check, hypoglycemia protocol. (7) DVT prophylaxis Current Visit: Yes Status: Acute Plan to address problem: SCD to BLE while in bed, prophylactic lovenox History Interval history: Patient was seen and evaluated this morning, patient denies shortness of breath or chest pain. Hospitalist Physical - Physical exam Narrative exam: Not in cardiopulmonary distress. Patient is on intranasal oxygen The patient is morbidly obese. Vital signs as documented. Head exam is unremarkable. No scleral icterus . Neck is without jugular venous distension, thyromegaly, or carotid bruits. Lungs are clear to auscultation. Cardiac exam reveals regular rate and Rhythm. Abdominal exam reveals normal bowel sounds. Extremities are nonedematous and both femoral and pedal pulses are normal. 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 No focal weakness. - Constitutional Vitals: Temp Pulse Resp BP Pulse Ox 98.1 F 69 20 148/80 98 09/19/18 16:01 09/19/18 16:01 09/19/18 16:01 09/19/18 16:01 09/19/18 16:01 General appearance: Present: no acute distress, well-nourished Results - Labs CBC & Chem 7: 09/19/18 05:17 09/19/18 05:17 Labs: Laboratory Last Values WBC 7.5 K/mm3 (4.5-11.0) 09/19/18 05:17 RBC 4.63 M/mm3 (3.65-5.03) 09/19/18 05:17 Hgb 10.7 gm/dl (11.8-15.2) L 09/19/18 05:17 Hct 34.6 % (35.5-45.6) L 09/19/18 05:17 MCV 75 fl (84-94) L 09/19/18 05:17 MCH 23 pg (28-32) L 09/19/18 05:17 MCHC 31 % (32-34) L 09/19/18 05:17 RDW 21.6 % (13.2-15.2) H 09/19/18 05:17 Plt Count 278 K/mm3 (140-440) 09/19/18 05:17 Lymph % (Auto) 20.2 % (13.4-35.0) 09/19/18 05:17 [place] % (Auto) 6.8 % (0.0-7.3) 09/19/18 05:17 Eos % (Auto) 2.2 % (0.0-4.3) 09/19/18 05:17 Baso % (Auto) 0.5 % (0.0-1.8) 09/19/18 05:17 Lymph # 1.5 K/mm3 (1.2-5.4) 09/19/18 05:17 [place] # 0.5 K/mm3 (0.0-0.8) 09/19/18 05:17 Eos # 0.2 K/mm3 (0.0-0.4) 09/19/18 05:17 Baso # 0.0 K/mm3 (0.0-0.1) 09/19/18 05:17 Add Manual Diff Complete 09/17/18 02:15 Total Counted 100 09/17/18 02:15 Seg Neutrophils % 70.3 % (40.0-70.0) H 09/19/18 05:17 Seg Neuts % (Manual) 94.0 % (40.0-70.0) H 09/17/18 02:15 1.0 % 09/17/18 02:15 4.0 % (13.4-35.0) L 09/17/18 02:15 Reactive Lymphs % (Man) 0 % 09/17/18 02:15 1.0 % (0.0-7.3) 09/17/18 02:15 0 % (0.0-4.3) 09/17/18 02:15 0 % (0.0-1.8) 09/17/18 02:15 0 % 09/17/18 02:15 0 % 09/17/18 02:15 0 % 09/17/18 02:15 0 % 09/17/18 02:15 Nucleated RBC % Not Reportable 09/17/18 02:15 Seg Neutrophils # 5.2 K/mm3 (1.8-7.7) 09/19/18 05:17 Seg Neutrophils # Man 10.9 K/mm3 (1.8-7.7) H 09/17/18 02:15 Band Neutrophils # 0.1 K/mm3 09/17/18 02:15 0.5 K/mm3 (1.2-5.4) L 09/17/18 02:15 Abs React Lymphs (Man) 0.0 K/mm3 09/17/18 02:15 0.1 K/mm3 (0.0-0.8) 09/17/18 02:15 0.0 K/mm3 (0.0-0.4) 09/17/18 02:15 0.0 K/mm3 (0.0-0.1) 09/17/18 02:15 0.0 K/mm3 09/17/18 02:15 0.0 K/mm3 09/17/18 02:15 0.0 K/mm3 09/17/18 02:15 Blast Cells # 0.0 K/mm3 09/17/18 02:15 WBC Morphology Not Reportable 09/17/18 02:15 Hypersegmented Neuts Not Reportable 09/17/18 02:15 Hyposegmented Neuts Not Reportable 09/17/18 02:15 Hypogranular Neuts Not Reportable 09/17/18 02:15 Not Reportable 09/17/18 02:15 Not Reportable 09/17/18 02:15 Not Reportable 09/17/18 02:15 Not Reportable 09/17/18 02:15 Not Reportable 09/17/18 02:15 Not Reportable 09/17/18 02:15 Appears normal 09/17/18 02:15 Not Reportable 09/17/18 02:15 Plt Clumps, EDTA Not Reportable 09/17/18 02:15 Not Reportable 09/17/18 02:15 Not Reportable 09/17/18 02:15 Not Reportable 09/17/18 02:15 Plt Morphology Comment Not Reportable 09/17/18 02:15 RBC Morphology Not Reportable 09/17/18 02:15 Dimorphic RBCs Not Reportable 09/17/18 02:15 Not Reportable 09/17/18 02:15 1+ 09/17/18 02:15 Not Reportable 09/17/18 02:15 1+ 09/17/18 02:15 Not Reportable 09/17/18 02:15 Not Reportable 09/17/18 02:15 Not Reportable 09/17/18 02:15 Not Reportable 09/17/18 02:15 Not Reportable 09/17/18 02:15 Not Reportable 09/17/18 02:15 Not Reportable 09/17/18 02:15 Not Reportable 09/17/18 02:15 Not Reportable 09/17/18 02:15 Not Reportable 09/17/18 02:15 Not Reportable 09/17/18 02:15 Not Reportable 09/17/18 02:15 Not Reportable 09/17/18 02:15 Not Reportable 09/17/18 02:15 Not Reportable 09/17/18 02:15 Acanthocytes (Spur) Not Reportable 09/17/18 02:15 Rouleaux Not Reportable 09/17/18 02:15 Not Reportable 09/17/18 02:15 Not Reportable 09/17/18 02:15 Not Reportable 09/17/18 02:15 Not Reportable 09/17/18 02:15 Hem Pathologist Commnt No 09/17/18 02:15 PT 15.2 Sec. (12.2-14.9) H 09/16/18 19:54 INR 1.13 (0.87-1.13) 09/16/18 19:54 APTT 25.9 Sec. (24.2-36.6) 09/16/18 19:54 907.94 ng/mlDDU (0-234) H 09/16/18 22:33 Sodium 142 mmol/L (137-145) 09/19/18 05:17 Potassium 4.5 mmol/L (3.6-5.0) 09/19/18 05:17 Chloride 102.3 mmol/L (98-107) 09/19/18 05:17 Carbon Dioxide 28 mmol/L (22-30) 09/19/18 05:17 16 mmol/L 09/19/18 05:17 BUN 20 mg/dL (9-20) 09/19/18 05:17 1.0 mg/dL (0.8-1.5) 09/19/18 05:17 Estimated GFR > 60 ml/min 09/19/18 05:17 20 % 09/19/18 05:17 Glucose 225 mg/dL (75-100) H 09/19/18 05:17 7.2 % (4-6) H 09/19/18 08:11 Calcium 8.4 mg/dL (8.4-10.2) 09/19/18 05:17 Magnesium 1.50 mg/dL (1.7-2.3) L 09/16/18 23:02 0.30 mg/dL (0.1-1.2) 09/17/18 02:15 < 0.2 mg/dL (0-0.2) 09/16/18 19:54 0.2 mg/dL 09/16/18 19:54 AST 13 units/L (5-40) 09/17/18 02:15 ALT 15 units/L (7-56) 09/17/18 02:15 110 units/L (35-129) 09/17/18 02:15 < 0.010 ng/mL (0.00-0.029) 09/17/18 02:15 NT-Pro-B Natriuret Pep 1522 pg/mL (0-900) H 09/16/18 19:54 7.1 g/dL (6.3-8.2) 09/17/18 02:15 3.2 g/dL (3.9-5) L 09/17/18 02:15 0.8 % 09/17/18 02:15 TSH 1.260 mlU/mL (0.270-4.200) 09/16/18 23:02 Free T4 1.24 ng/dL (0.76-1.46) 09/16/18 23:02 Active Medications - Current Medications Current Medications: Generic Name Dose Route Start Last Admin Trade Name Freq PRN Reason Stop Dose Admin Acetaminophen 650 mg 09/16/18 22:44 Tylenol PO Q4H PRN Pain MILD(1-3)/Fever >100.5/HINDS Acetaminophen/Hydrocodone Bitart 1 each 09/16/18 23:18 [place] 5/325 PO Q6H PRN Pain (4-6) Albuterol 2.5 mg 09/16/18 22:44 Proventil IH Q4HRT PRN Shortness Of Breath Allopurinol 100 mg 09/17/18 10:00 09/19/18 13:59 Zyloprim PO 100 mg QDAY PATRICE Administration Amlodipine Besylate 10 mg 09/17/18 10:00 09/19/18 14:00 Norvasc PO 10 mg QDAY PATRICE Administration Aspirin 81 mg 09/17/18 10:00 09/19/18 13:59 Halfprin Ec PO 81 mg DAILY PATRICE Administration Atorvastatin Calcium 40 mg 09/17/18 22:00 09/18/18 21:41 Lipitor PO 40 mg QHS PATRICE Administration Azithromycin 250 mg 09/19/18 10:00 09/19/18 14:00 Zithromax PO 250 mg QDAY PATRICE Administration Carvedilol 12.5 mg 09/17/18 10:00 09/19/18 14:09 Coreg PO 12.5 mg BID PATRICE Administration Dextrose 50 ml 09/19/18 08:11 D50w (25gm) Syringe IV PRN PRN Hypoglycemia Enoxaparin Sodium 40 mg 09/17/18 22:00 09/18/18 21:40 Lovenox SUB-Q 40 mg QDAY@2200 PATRICE Administration Famotidine 10 mg 09/17/18 10:00 09/19/18 13:59 Pepcid PO 10 mg BID PATRICE Administration Furosemide 40 mg 09/17/18 06:00 09/19/18 05:11 Lasix IV 40 mg BID@0600,1800 PATRICE Administration Gabapentin 600 mg 09/17/18 10:00 09/19/18 13:59 Neurontin PO 600 mg BID PATRICE Administration Hydralazine HCl 10 mg 09/17/18 09:31 09/17/18 21:55 Apresoline IV 10 mg Q3H PRN Administration Hypertension Ceftriaxone Sodium 1 gm in 50 mls @ 100 mls/hr 09/18/18 17:00 09/19/18 14:00 Rocephin/Ns 1 Gm/50 Ml IV 100 mls/hr Q24HR PATRICE Administration Protocol Ibuprofen 800 mg 09/16/18 23:18 Ibuprofen PO Q8H PRN Pain , Severe (7-10) Insulin Human Lispro 0 unit 09/19/18 11:30 09/19/18 11:30 Humalog SUB-Q Not Given [facility] Protocol Isosorbide Mononitrate 60 mg 09/17/18 10:00 09/19/18 14:00 Imdur PO 60 mg DAILY PATRICE Administration Lisinopril 40 mg 09/17/18 10:00 09/19/18 14:00 Zestril PO 40 mg QDAY PATRICE Administration Ondansetron HCl 4 mg 09/16/18 22:44 Zofran IV Q8H PRN Nausea And Vomiting Sodium Chloride 10 ml 09/17/18 10:00 09/19/18 14:02 Sodium Chloride Flush Syringe 10 Ml IV 10 ml BID PATRICE Administration Sodium Chloride 10 ml 09/16/18 22:44 Sodium Chloride Flush Syringe 10 Ml IV PRN PRN LINE FLUSH
[2018-09-19] MEDS: LOVENOX SUB-Q SCH (22:22)
[2018-09-20 06:14] LABS: INR 1.03 (0.87-1.13); Partial Thromboplastin Time 30.3 Sec. (24.2-36.6)
[2018-09-20 06:34] LABS: BUN/Creatinine Ratio 16; Blood Urea Nitrogen 14 mg/dL (9-20); Calcium 8.3 mg/dL (8.4-10.2); Hemolysis Index 2
[2018-09-20] MEDS: LASIX IV SCH (06:39)
[2018-09-20] MEDS: HumaLOG SUB-Q SCH ×3 (08:14→16:14)
[2018-09-20] MEDS ORDERED: HALFPRIN EC PO ONE (09:44)
[2018-09-20] MEDS: HALFPRIN EC PO SCH (09:51)
[2018-09-20] MEDS ORDERED: HEPARIN/NS 5000 UNIT/500ML(CATH LAB) 1,000 ML IR ONE (09:55)
[2018-09-20] MEDS ORDERED: HEPARIN 10,000 UNITS/10 ML ONE (09:56)
[2018-09-20] MEDS ORDERED: NITROGLYCERIN SYRINGE 0 ML ONE (09:57)
[2018-09-20] MEDS ORDERED: CALAN ONE (09:57)
[2018-09-20] MEDS ORDERED: NACL 0.9% 500 ML 500 ML IV SCH (10:00)
[2018-09-20] MEDS: VERSED ONE ×2 (10:53→11:03)
[2018-09-20] MEDS: SUBLIMAZE ONE ×2 (10:53→11:03)
[2018-09-20] MEDS: XYLOCAINE 2% INFILTRATI ONE ×2 (10:54→11:08)
[2018-09-20] MEDS ORDERED: APRESOLINE ONE (11:31)
--- NOTE | 2018-09-20 12:15 | Event Note ---
Date: 09/20/18 We performed a right and left heart catheterization for further assessment of the patient's heart failure and dilated cardiomyopathy. Findings: 1. Severe elevation of intracardiac filling pressures, left ventricular end- diastolic pressure of 45-50 mmHg. Findings consistent with decompensated biventricular failure. 2. Severe pulmonary hypertension, pulmonary artery systolic pressure of 90 mmHg. 3. Angiographically normal coronary arteries. 4. Nonischemic cardiomyopathy, left ventricular ejection fraction 20-25%. Recommendations: Aggressive heart failure treatment including high dose diuretics, intravenous milrinone. Aggressive blood pressure management. Pulmonary evaluation and management of pulmonary hypertension and sleep apnea.
--- NOTE | 2018-09-20 12:17 | Cardiac Catherization Report ---
REASON FOR STUDY: Congestive heart failure and dilated cardiomyopathy. The patient was admitted with symptoms of shortness of breath and decompensated heart failure. He was referred for right and left heart catheterization for further evaluation. PROCEDURES: 1. Right heart catheterization. 2. Left heart catheterization. 3. Selective left and right coronary angiography. 4. Left ventricle angiography. 5. Sedation time: Start 10:58, end 11 34. DESCRIPTION OF PROCEDURE: The patient was prepped and draped in a sterile fashion after informed consent. The right femoral artery and vein were both entered using the Seldinger technique. A 6-[place] sheath was placed in the artery and an 8-[place] sheath in the vein. A [place]-Bianca catheter was then advanced to the pulmonary artery position. A pigtail catheter was advanced into the left ventricle. Cardiac output was then measured using thermodilution method. Simultaneous right and left heart filling pressures were then recorded, following which the [place]-Bianca catheter was withdrawn, followed by recording of right heart pressures on pullback. Left ventricle angiography was then performed following which the pigtail catheter was withdrawn across the aortic valve and transaortic gradient measured. Selective left and right coronary angiography was then performed using #4 left and right Candy catheters. The catheters were then withdrawn, sheath was removed, hemostasis on the arterial site using an Angio-Seal device, and over the venous site using manual compression. The patient was returned to the postprocedure unit in stable condition. There were no complications. FINDINGS: HEMODYNAMICS: The mean right atrial pressure was 25. Right ventricular pressure was 85/30. Pulmonary artery pressure was 90/45. The mean pulmonary artery wedge pressure was 40. Left ventricular end-diastolic pressure was 45-50. Ascending aortic pressure was 186/97. There was no significant pressure gradient on pullback across the aortic valve. Cardiac output measurements were unreliable, varying from 5 liters per minute to 12 liters per minute on multiple measurements. CORONARY ANGIOGRAPHY: The left main coronary artery was angiographically normal. Left anterior descending artery and its diagonal branches were free of significant disease. The circumflex artery contained mild luminal irregularities. The right coronary artery was dominant and similarly free of significant disease. The left ventricle was moderately to severely dilated. There was severe left ventricular systolic dysfunction, diffuse hypokinesis, left ventricular ejection fraction estimated at 20-25%, following ventricular extrasystoles. CONCLUSION: 1. Severe elevation of the right and left heart filling pressures, left ventricular end-diastolic pressure of 45-50 consistent with severe decompensated heart failure. 2. Severe pulmonary hypertension with pulmonary artery systolic pressure of 90 mmHg. 3. Angiographically near normal coronary arteries. 4. Dilated nonischemic cardiomyopathy, severe left ventricular systolic dysfunction, ejection fraction 20-25%. RECOMMENDATION: Aggressive medical therapy for biventricular heart failure, and for the pulmonary assessment and management of pulmonary hypertension as indicated. JOB# [id number] CA/NTS
[2018-09-20] MEDS ORDERED: NACL 0.9% 1000 ML 1,000 ML IV SCH (13:00)
[2018-09-20] MEDS ORDERED: ZAROXOLYN PO SCH (13:00)
[2018-09-20] MEDS ORDERED: ALDACTONE PO SCH (13:00)
[2018-09-20] MEDS ORDERED: MILRINONE-D5W 20 MG/100 ML 20 MG/100 ML BAG IV SCH (13:00)
[2018-09-20] MEDS ORDERED: PROCARDIA XL PO SCH (13:00)
[2018-09-20] MEDS: ROCEPHIN/NS 1 GM/50 ML 1 GM/50 ML BAG IV SCH (13:41)
[2018-09-20] MEDS: SODIUM CHLORIDE FLUSH SYRINGE 10 ML IV SCH (13:42)
[2018-09-20] MEDS: NEURONTIN PO SCH (13:46)
[2018-09-20] MEDS: ZITHROMAX PO SCH (13:46)
[2018-09-20] MEDS: ZESTRIL PO SCH (13:46)
[2018-09-20] MEDS: COREG PO SCH (13:46)
[2018-09-20] MEDS: ZYLOPRIM PO SCH (13:47)
[2018-09-20] MEDS: PEPCID PO SCH (13:47)
[2018-09-20] MEDS: NORVASC PO SCH (13:50)
[2018-09-20] MEDS: IMDUR PO SCH (13:50)
[2018-09-20] MEDS ORDERED: BIDIL 20/37.5MG PO SCH (14:00)
--- NOTE | 2018-09-20 16:14 | Discharge Summary ---
Providers - Providers Date of Admission: 09/16/18 22:44 Date of discharge: 09/20/18 Attending physician: MICHELLE HINSON MD 09/16/18 22:44 Consult to Physician [CONS] Routine Comment: Consulting Provider: SHANAE ORR Physician Instructions: Reason For Exam: CHF 09/20/18 12:06 Consult to Cardiac Rehabilitation [CONS] Routine Reason For Exam: Cardiac Rehab Evaluation Primary care physician: KOIR LATHAM Hospitalization Reason for admission: acute and chronic systolic CHF exacerbation, severe pulm. HTN Condition: Stable Pertinent studies: Cardiac cath Stress test CTA Echo Hospital course: 63 YO Male with CVA, Systolic CHF, DM, Obesity Hypoventilation, DANIS presents to ED for evaluation. Pt states that he has experienced shortness of breath over the past 2 days with progressively worsening symptoms over the same time frame. Pt acknowledges dypsnea on and at rest, leg edema, decreased exercise tolerance, Orthopnea/PND, as well as High Blood Pressure. Pt acknowledges 12 lbs weight gain over the past 1week as well as dietary noncompliance. EMS notified, and upon arrival the patient was found to be in respiratory distress with pulse oximetry in the 80's on room air. Pt transported to [facility]. Pt seen and evaluated in ED and found to have CHF Decompensation complicated by Acute Hypoxemic Respiratory Failure and Hypertensive Urgency. Pt initiated on NIPPV and diuretic therapy with improvement in symptoms. Pt denies fever, chills, CP, Palpitations. Patient admitted to the floor and was managed appropriately for acute on chronic systolic CHF exacerbation. Echo was done and if of 30%. Stress test was done and results were inconclusive so cardiac cath done today and showed ejection fraction of 20-25%, pulmonary hypertension 90 mmHg, and coronaries were clean. Per cardiology recommendation patient was put on milrinone drip, high- dose IV Lasix, carvedilol, BiDil, lisinopril, metolazone, Procardia and Aldactone. Patient is saturating well on 2 L of intranasal oxygen. Daily at bedtime CPAP. CTA was done on admission; negative for PE and showed right upper lobe infiltrate, with mild leukocytosis patient is being treated for pneumonia with IV ceftriaxone and Zithromax. Leukocytosis is resolved, no fever, chills or cough. I have discussed with [place] [facility] physician Dr Escobar and she said they will take the patient. I was called by [facility] and discussed with sports lawyer Dr Sidney Phan and said will talk with [facility]. Eitherway patient will be transferred to [facility]. Disposition: [id number] ANOTHER TYPE HLTHCARE Time spent for discharge: 32 minutes - Discharge Diagnoses (1) Systolic CHF, acute on chronic Status: Acute (2) Pulmonary hypertension Status: Acute (3) Acute respiratory failure Status: Acute Core Measure Documentation - Palliative Care Palliative Care/ Comfort Measures: Not Applicable - Core Measures Any of the following diagnoses?: heart failure - Heart Failure Discharge Requirements LANI/ARB for LVSD if EF <40%: Yes Beta elyssa at discharge: Yes Exam - Physical Exam Narrative exam: Not in cardiopulmonary distress. Patient is on intranasal oxygen The patient is morbidly obese. Vital signs as documented. Head exam is unremarkable. No scleral icterus . Neck is without jugular venous distension, thyromegaly, or carotid bruits. Lungs are clear to auscultation. Cardiac exam reveals regular rate and Rhythm. Abdominal exam reveals normal bowel sounds. Extremities trace pedal and pretibial edema. CELL TESTER: Alert and oriented 3. No focal weakness. - Constitutional Vitals: Temp Pulse Resp BP Pulse Ox 98.1 F 74 18 172/95 99 09/20/18 12:25 09/20/18 13:27 09/20/18 08:46 09/20/18 13:27 09/20/18 13:58 Plan Activity: no restrictions Weight Bearing Status: Full Weight Bearing Diet: low cholesterol, low salt, diabetic Follow up with: KORI LATHAM MD [Primary Care Provider] - 3-5 Days
[2018-09-20] MEDS ORDERED: LASIX IV SCH (18:00)
[2018-09-20 20:03] VITALS: BP 98/49
== END 2018-09-20 19:30 | disposition short-term general hospital (02) | DRG 286 ==
LOC: ED 19:32 → 4A 22:44
PROVIDERS: ADMIT Internal Medicine; ATTEND Internal Medicine
PROC: 5A09357 Assistance with Respiratory Ventilation, Less than 24 Consecutive Hours, Continuous Positive Airway Pressure (ICD-10-PCS; 2018-09-17)
PROC: 4A023N8 Measurement of Cardiac Sampling and Pressure, Bilateral, Percutaneous Approach (ICD-10-PCS; principal; 2018-09-20)
PROC: B2151ZZ Fluoroscopy of Left Heart using Low Osmolar Contrast (ICD-10-PCS; 2018-09-20)
PROC: B2111ZZ Fluoroscopy of Multiple Coronary Arteries using Low Osmolar Contrast (ICD-10-PCS; 2018-09-20)
DX: I11.0 Hypertensive heart disease with heart failure (principal); J96.01 Acute respiratory failure with hypoxia; J18.9 Pneumonia, unspecified organism; E66.2 Morbid (severe) obesity with alveolar hypoventilation; Z68.43 Body mass index [BMI] 50.0-59.9, adult; I69.354 Hemiplegia and hemiparesis following cerebral infarction affecting left non-dominant side; I47.2 Ventricular tachycardia; I50.23 Acute on chronic systolic (congestive) heart failure; I27.20 Pulmonary hypertension, unspecified; I42.0 Dilated cardiomyopathy; Z96.649 Presence of unspecified artificial hip joint; Z96.659 Presence of unspecified artificial knee joint; E11.9 Type 2 diabetes mellitus without complications; I16.0 Hypertensive urgency; Z60.2 Problems related to living alone; Z83.3 Family history of diabetes mellitus; Z82.49 Family history of ischemic heart disease and other diseases of the circulatory system; Z79.51 Long term (current) use of inhaled steroids; Z79.82 Long term (current) use of aspirin
CPT/HCPCS: 36415; 71045; 71275; 78452; 80048; 80053; 80076; 82962; 83036; 83735; 83880; 84439; 84443; 84484; 85007; 85025; 85379; 85610; 85730; 90686; 93005; 93010; 93017; 93306; 93460; 94660; 94760; G0378; A9270-GY; A9502; C1760; C1894; J0360; J0696; J1644; J1650; J1815; J1940; J2250; J2260; J2785; J3010; J7040; Q9967

== ENCOUNTER 2019-03-08 17:06 | Emergency (ER) | payer OTHER ==
--- NOTE | 2019-03-08 18:56 | XRay Report ---
CHEST 1 VIEW 03/08/2019 6:36 PM INDICATION / CLINICAL INFORMATION: Dyspnea. COMPARISON: Chest x-ray on 10/16/2018 FINDINGS: SUPPORT DEVICES: None. HEART / MEDIASTINUM: No significant abnormality. LUNGS / PLEURA: No significant pulmonary or pleural abnormality. No pneumothorax. ADDITIONAL FINDINGS: No significant additional findings. IMPRESSION: 1. No acute findings. Signer Name: Donte Cameron MD Signed: 03/08/2019 6:52 PM Workstation Name: [id number]
[2019-03-08 18:57] LABS: Hematocrit 34.8 % (35.5-45.6); Hemoglobin 10.9 gm/dl (11.8-15.2); Mean Corpuscular HGB Conc 31 % (32-34); Mean Corpuscular Volume 74 fl (84-94); Platelet Count 235 K/mm3 (140-440); Red Blood Count 4.72 M/mm3 (3.65-5.03); Red Cell Distribution Width 21.9 % (13.2-15.2)
[2019-03-08 19:18] LABS: Alanine Aminotransferase 11 units/L (7-56); Albumin 3.4 g/dL (3.9-5); BUN/Creatinine Ratio 11; Blood Urea Nitrogen 12 mg/dL (9-20); Calcium 8.6 mg/dL (8.4-10.2); Hemolysis Index 1
[2019-03-08] MEDS ORDERED: FUROSEMIDE 40 MG/4 ML INJ IV ONE (19:52)
[2019-03-08] MEDS ORDERED: cloNIDine 0.1 MG TAB PO ONE (19:52)
--- NOTE | 2019-03-08 20:52 | Emergency Department Report ---
ED Chest Pain HPI - General Chief Complaint: Dyspnea/Respdistress Stated Complaint: CHEST PAIN/DIFFICULTY BREATHING Time Seen by Provider: 03/08/19 19:07 Source: EMS Mode of arrival: Ambulatory Limitations: No Limitations - History of Present Illness MD Complaint: chest pain -: Gradual Onset: during rest Pain Location: right chest Pain Radiation: none Severity: mild Severity scale (0 -10): 2 Quality: aching Consistency: intermittent Improves With: nothing Worsens With: nothing Context: other (increased stress) re: denies: nausea, vomting, diaphoresis, dyspnea, sense of impending doom Other Symptoms: leg swelling. denies: cough, fever, syncope, rash, acid taste in mouth, palpitations, burping - Related Data Home Medications Medication Instructions Recorded Confirmed Last Taken ALBUTEROL Inhaler (OR & NICU) 2 puff IH QID PRN 09/16/18 03/08/19 09/16/18 [Proair] Allopurinol [Zyloprim] 100 mg PO QDAY 09/16/18 03/08/19 09/16/18 Aspirin [Adult Aspirin] 81 mg PO DAILY 09/16/18 03/08/19 09/16/18 AtorvaSTATin [Lipitor] 40 mg PO QHS 09/16/18 03/08/19 09/16/18 Furosemide [Lasix TAB] 40 mg PO QDAY 09/16/18 03/08/19 09/16/18 Gabapentin [Neurontin] 600 mg PO BID 09/16/18 03/08/19 09/16/18 HYDROcodone/APAP 5-325 [[place] 1 each PO Q6HR PRN 09/16/18 03/08/19 09/16/18 5/325] Isosorbide Mononitrate 60 mg PO DAILY 09/16/18 03/08/19 09/16/18 Lisinopril [Zestril TAB] 40 mg PO QDAY 09/16/18 03/08/19 09/16/18 carvediloL [Coreg] 25 mg PO BID 09/16/18 03/08/19 09/16/18 Previous Rx's Medication Instructions Recorded Last Taken Type ALBUTEROL NEB's [Proventil 0.083% 2.5 mg IH Q4HRT PRN nebu 09/20/18 Unknown Rx NEBS] Isosorb Dinit/Hydralazine [Bidil 1 each PO Q8HR tablet 09/20/18 Unknown Rx 20/37.5MG] Lispro Insulin [HumaLOG] 0 unit SUB-Q ACHS units 09/20/18 Unknown Rx carvediloL [Coreg] 12.5 mg PO BID tablet 09/20/18 Unknown Rx metOLazone [Zaroxolyn] 5 mg PO QDAY tablet 09/20/18 Unknown Rx Allergies Allergy/AdvReac Type Severity Reaction Status Date / Time No Known Allergies Allergy Unverified 02/23/15 14:38 Heart Score - HEART Score History: Moderately suspicious EKG: Non-specific Age: 45-65 Risk factors: > 3 risk factors or hx of atherosclerotic disease Troponin: < normal limit HEART Score: 5 ED Review of Systems ROS: Stated complaint: CHEST PAIN/DIFFICULTY BREATHING Other details as noted in HPI Other: GENERAL: No weight change, fatigue, fever, chills, or night sweats SKIN: No changes in skin or hair, no itching, no rashes, no jaundice HEAD: No trauma EYES: No blurriness, tearing, itching, acute visual loss, conjunctival discoloration, or scleral icterus EARS: No hearing loss, tinnitus, vertigo, or earache NOSE: No rhinorrhea, stuffiness, sneezing, itching, or epistaxis MOUTH: No bleeding gums, hoarseness, sore throat, or swelling CARDIAC: Chest pain and edema. No new murmur, palpitations, dyspnea on exertion, orthopnea, PND RESPIRATORY: No shortness of breath, wheeze, cough, sputum production, hemoptysis GI: No nausea, vomiting, dysphagia, diarrhea, constipation, hematemesis, melena, hematochezia, or abdominal pain URINARY: No frequency, urgency, polyuria, dysuria, hematuria, or incontinence MUSCULOSKELETAL: No muscle weakness, joint stiffness, decrease in range of mot ion, redness, swelling NEUROLOGIC: No headache, syncope, loss of sensation, numbness, tingling, trem ors, weakness, paralysis, seizures HEMATOLOGIC: No anemia, easy bruising, bleeding, petechiae, or purpura ENDOCRINE: No hot or cold intolerance, sweating, polyuria, polydipsia or, polyphagia no thyroid problems PSYCHIATRIC: No change in mood, no anxiety, no depression ED Past Medical Hx - Past Medical History Hx Hypertension: Yes Hx CVA: Yes Hx Congestive Heart Failure: Yes Hx Diabetes: Yes Hx Asthma: No Hx COPD: No Additional medical history: Gout - Surgical History Past Surgical History?: Yes Additional Surgical History: Right knee replacement. Twan Hip replacement - Social History Smoking Status: Former Smoker Substance Use Type: None - Medications Home Medications: Home Medications Medication Instructions Recorded Confirmed Last Taken Type ALBUTEROL Inhaler (OR & NICU) 2 puff IH QID PRN 09/16/18 03/08/19 09/16/18 History [Proair] Allopurinol [Zyloprim] 100 mg PO QDAY 09/16/18 03/08/19 09/16/18 History Aspirin [Adult Aspirin] 81 mg PO DAILY 09/16/18 03/08/19 09/16/18 History AtorvaSTATin [Lipitor] 40 mg PO QHS 09/16/18 03/08/19 09/16/18 History Furosemide [Lasix TAB] 40 mg PO QDAY 09/16/18 03/08/19 09/16/18 History Gabapentin [Neurontin] 600 mg PO BID 09/16/18 03/08/19 09/16/18 History HYDROcodone/APAP 5-325 [[place] 1 each PO Q6HR PRN 09/16/18 03/08/19 09/16/18 H istory 5/325] Isosorbide Mononitrate 60 mg PO DAILY 09/16/18 03/08/19 09/16/18 History Lisinopril [Zestril TAB] 40 mg PO QDAY 09/16/18 03/08/19 09/16/18 History carvediloL [Coreg] 25 mg PO BID 09/16/18 03/08/19 09/16/18 History ALBUTEROL NEB's [Proventil 0.083% 2.5 mg IH Q4HRT PRN nebu 09/20/18 03/08/19 Unknown Rx NEBS] Isosorb Dinit/Hydralazine [Bidil 1 each PO Q8HR tablet 09/20/18 03/08/19 Unknown Rx 20/37.5MG] Lispro Insulin [HumaLOG] 0 unit SUB-Q ACHS units 09/20/18 03/08/19 Unknown Rx carvediloL [Coreg] 12.5 mg PO BID tablet 09/20/18 03/08/19 Unknown Rx metOLazone [Zaroxolyn] 5 mg PO QDAY tablet 09/20/18 03/08/19 Unknown Rx ED Physical Exam - General Limitations: No Limitations - Other Other exam information: GENERAL: Patient in no acute distress HEAD: Normocephalic, atraumatic EYES: PERRLA, EOM intact, no scleral icterus, no conjunctival hemorrhage, visual hardy and acuity wnl NOSE: No tenderness, discharge, sinus tenderness MOUTH: No erythema, bleeding, exudate HEART: Regular rate and rhythm, no murmur, S1-S2 are auscultated, no edema, pulses are symmetric LUNGS: No respiratory distress. Bilateral breath sounds, No tachypnea, No retractions, No wheezing, rales, rhonchi ABDOMEN: Normal bowel sounds, abdomen soft, no tenderness, no rebound, no guarding, no distention, no masses, no CVA tenderness MUSCULOSKELETAL: Normal joint range of motion, no redness, no swelling, no tenderness NEUROLOGIC: GCS 15, Alert and Oriented, Cranial nerves intact, normal sensation, normal strength, no cerebellar deficit, NIHSS 0 SKIN: Skin is warm and dry, no wounds, no rashes ED Course Vital Signs 03/08/19 03/08/19 03/08/19 18:23 19:15 19:25 Temperature 99.4 F 99.1 F Pulse Rate 80 74 Respiratory 21 15 Rate Blood Pressure Blood Pressure 154/89 166/100 [Right] O2 Sat by Pulse 99 100 99 Oximetry 03/08/19 03/08/19 03/08/19 19:30 20:00 20:18 Temperature Pulse Rate 71 72 Respiratory 17 Rate Blood Pressure 155/90 169/97 182/97 Blood Pressure [Right] O2 Sat by Pulse 100 100 Oximetry 03/08/19 21:00 Temperature Pulse Rate 63 Respiratory 18 Rate Blood Pressure 185/107 Blood Pressure [Right] O2 Sat by Pulse 100 Oximetry ED Medical Decision Making - Lab Data Result diagrams: 03/08/19 18:40 03/08/19 18:40 Laboratory Results - last 24 hr 03/08/19 03/08/19 03/08/19 18:40 18:40 20:08 WBC 8.5 RBC 4.72 Hgb 10.9 L Hct 34.8 L MCV 74 L MCH 23 L MCHC 31 L RDW 21.9 H Plt Count 235 Sodium 141 Potassium 4.0 Chloride 103.4 Carbon Dioxide 24 Anion Gap 18 BUN 12 Creatinine 1.1 Estimated GFR > 60 BUN/Creatinine Ratio 11 Glucose 183 H Calcium 8.6 Total Bilirubin 0.30 AST 12 ALT 11 Alkaline Phosphatase 119 Troponin T < 0.010 < 0.010 NT-Pro-B Natriuret Pep 920.5 H Total Protein 7.3 Albumin 3.4 L Albumin/Globulin Ratio 0.9 - EKG Data When compared to previous EKG there are: no significant change - Radiology Data Radiology results: report reviewed - Medical Decision Making Patient comfortable. Plan admit for further evaluation. Hospitalist updated and accepts admission. Critical care attestation.: If time is entered above; I have spent that time in minutes in the direct care of this critically ill patient, excluding procedure time. ED Disposition Clinical Impression: Hypertensive urgency, malignant CHF exacerbation Qualifiers: Heart failure type: unspecified Qualified Code(s): I50.9 - Heart failure, unspecified Chest pain Qualifiers: Chest pain type: unspecified Qualified Code(s): R07.9 - Chest pain, unspecified Disposition: -09 OP ADMIT IP TO THIS HOSP Is pt being admited?: Yes Condition: Stable Instructions: Chest Pain (ED) Referrals: PRIMARY CARE, [Primary Care Provider] - 3-5 Days
[2019-03-08 23:13] VITALS: BP 145/100
== END 2019-03-08 23:50 | disposition other institution (70) ==
LOC: ED 17:06
DX: I16.0 Hypertensive urgency (principal); I11.0 Hypertensive heart disease with heart failure; I50.9 Heart failure, unspecified; E11.9 Type 2 diabetes mellitus without complications; M10.9 Gout, unspecified; Z96.651 Presence of right artificial knee joint; Z96.643 Presence of artificial hip joint, bilateral; Z87.891 Personal history of nicotine dependence; Z79.82 Long term (current) use of aspirin; Z79.899 Other long term (current) drug therapy
CPT/HCPCS: 36415; 71045; 80053; 83880; 84484; 85027; 96374; 99285; J1940

== ENCOUNTER 2021-04-23 05:59 | Inpatient (IN) | payer OTHER ==
[2021-04-23] MEDS ORDERED: LISINOPRIL 20 MG TAB PO ONE (07:38)
[2021-04-23] MEDS ORDERED: FUROSEMIDE 40 MG/4 ML INJ IV ONE (07:38)
[2021-04-23] MEDS ORDERED: carvediloL 6.25 MG TAB PO ONE (07:38)
--- NOTE | 2021-04-23 07:39 | Emergency Department Report ---
ED Shortness of Breath HPI - General Chief Complaint: Dyspnea/Respdistress Stated Complaint: SHORTNESS OF BREATH Time Seen by Provider: 04/23/21 07:11 Source: patient, EMS, old records reviewed Mode of arrival: Stretcher Limitations: No Limitations - History of Present Illness Initial Comments: Chief complaint: "I cannot breathe. I do not have my medicine." HPI: This is a 65-year-old male with a history of obstructive sleep apnea, obesity hypoventilation syndrome, hypertension, diabetes mellitus, systolic heart failure, pulmonary hypertension who presents with shortness of breath for 4 days. He has chronic lower extremity swelling. He has difficulty sleeping due to shortness of breath. He is unable to lay flat at night. He denies fever, cough, chest pain. He does have wheezing. He has chronic leg swelling. He does not have transportation. He is dependent on estranged to assist with medical care. He has been without his medications for 4 days. He has received 3 doses of COVID-vaccine including booster. Booster dose recei yamilet 2 to 3 weeks ago. He has not been diagnosed with COVID-19. According to the electronic medical record patient was admitted to this hospital September 2018. Echocardiogram performed during that encounter, revealed estimated EF 25 to 30%. Moderate LVH. Mild pulmonary hypertension. Cardiac cath was also performed during that encounter revealed severe pulmonary hypertension with pulmonary artery systolic pressure of 90 mmHg, angiographically near normal coronary arteries severe left ventricular systolic dysfunction ejection fraction 20 to 25%. MD Complaint: shortness of breath -: Gradual, days(s) (4 days) Severity: moderate Consistency: constant Improves With: oxygen (Improved with oxygen provided per EMS., Patient is not oxygen dependent.) Worsens With: lying flat, exertion Known History Of: congestive heart failure, other (Pulmonary hypertension, obstructive sleep apnea, obesity hypoventilation syndrome.) Context: medication noncompliance Associated Symptoms: other (Lower extremity swelling) Treatments Prior to Arrival: oxygen, other (EMS transport) - Related Data Home Medications Medication Instructions Recorded Confirmed Last Taken Albuterol Mdi (or & Nicu Only) 2 puff IH QID PRN 09/16/18 03/08/19 09/16/18 [Proair] Aspirin [Adult Aspirin] 81 mg PO DAILY 09/16/18 03/08/19 09/16/18 AtorvaSTATin [Lipitor] 40 mg PO QHS 09/16/18 03/08/19 09/16/18 Furosemide [Lasix TAB] 40 mg PO QDAY 09/16/18 03/08/19 09/16/18 Gabapentin [Neurontin] 600 mg PO BID 09/16/18 03/08/19 09/16/18 HYDROcodone/APAP 5-325 [[place] 1 each PO Q6HR PRN 09/16/18 03/08/19 09/16/18 5/325] Isosorbide Mononitrate 60 mg PO DAILY 09/16/18 03/08/19 09/16/18 allopurinoL [Zyloprim] 100 mg PO QDAY 09/16/18 03/08/19 09/16/18 carvediloL [Coreg] 25 mg PO BID 09/16/18 03/08/19 09/16/18 lisinopriL [Zestril TAB] 40 mg PO QDAY 09/16/18 03/08/19 09/16/18 Previous Rx's Medication Instructions Recorded Last Taken Type ALBUTEROL NEB's [Proventil 0.083% 2.5 mg IH Q4HRT PRN nebu 09/20/18 Unknown Rx NEBS] Isosorb Dinit/Hydralazine [Bidil 1 each PO Q8HR tablet 09/20/18 Unknown Rx 20/37.5MG] Lispro Insulin [HumaLOG] 0 unit SUB-Q ACHS units 09/20/18 Unknown Rx carvediloL [Coreg] 12.5 mg PO BID tablet 09/20/18 Unknown Rx metOLazone [Zaroxolyn] 5 mg PO QDAY tablet 09/20/18 Unknown Rx Allergies Allergy/AdvReac Type Severity Reaction Status Date / Time No Known Allergies Allergy Verified 04/23/21 06:03 ED Review of Systems ROS: Stated complaint: SHORTNESS OF BREATH Other details as noted in HPI Comment: All other systems reviewed and negative Constitutional: denies: chills, fever, malaise Respiratory: shortness of breath, wheezing. denies: cough Cardiovascular: denies: chest pain Gastrointestinal: denies: abdominal pain, nausea, vomiting Skin: denies: rash, lesions ED Past Medical Hx - Past Medical History Previous Medical History?: Yes Hx Hypertension: Yes Hx CVA: Yes Hx Congestive Heart Failure: Yes Hx Diabetes: Yes Hx Asthma: No Hx COPD: No Additional medical history: Gout - Surgical History Past Surgical History?: Yes Additional Surgical History: Right knee replacement. Twan Hip replacement - Social History Smoking Status: Former Smoker Substance Use Type: None - Medications Home Medications: Home Medications Medication Instructions Recorded Confirmed Last Taken Type Albuterol Mdi (or & Nicu Only) 2 puff IH QID PRN 09/16/18 03/08/19 09/16/18 History [Proair] Aspirin [Adult Aspirin] 81 mg PO DAILY 09/16/18 03/08/19 09/16/18 History AtorvaSTATin [Lipitor] 40 mg PO QHS 09/16/18 03/08/19 09/16/18 History Furosemide [Lasix TAB] 40 mg PO QDAY 09/16/18 03/08/19 09/16/18 History Gabapentin [Neurontin] 600 mg PO BID 09/16/18 03/08/19 09/16/18 History HYDROcodone/APAP 5-325 [[place] 1 each PO Q6HR PRN 09/16/18 03/08/19 09/16/18 History 5/325] Isosorbide Mononitrate 60 mg PO DAILY 09/16/18 03/08/19 09/16/18 History allopurinoL [Zyloprim] 100 mg PO QDAY 09/16/18 03/08/19 09/16/18 History carvediloL [Coreg] 25 mg PO BID 09/16/18 03/08/19 09/16/18 History lisinopriL [Zestril TAB] 40 mg PO QDAY 09/16/18 03/08/19 09/16/18 History ALBUTEROL NEB's [Proventil 0.083% 2.5 mg IH Q4HRT PRN nebu 09/20/18 03/08/19 Unknown Rx NEBS] Isosorb Dinit/Hydralazine [Bidil 1 each PO Q8HR tablet 09/20/18 03/08/19 Unknown Rx 20/37.5MG] Lispro Insulin [HumaLOG] 0 unit SUB-Q ACHS units 09/20/18 03/08/19 Unknown Rx carvediloL [Coreg] 12.5 mg PO BID tablet 09/20/18 03/08/19 Unknown Rx metOLazone [Zaroxolyn] 5 mg PO QDAY tablet 09/20/18 03/08/19 Unknown Rx ED Physical Exam - General Limitations: No Limitations General appearance: alert, in no apparent distress, other (Mild work of breathing, easily becomes out of breath while speaking) - Head Head exam: Present: atraumatic, normocephalic - Eye Eye exam: Present: normal appearance - ENT ENT exam: Present: mucous membranes moist - Neck Neck exam: Present: normal inspection, full ROM - Respiratory Respiratory exam: Present: rales, decreased breath sounds. Absent: rhonchi, accessory muscle use, prolonged expiratory - Cardiovascular Cardiovascular Exam: Present: regular rate, normal rhythm, normal heart sounds. Absent: systolic murmur, diastolic murmur, rubs, gallop - GI/Abdominal GI/Abdominal exam: Present: soft. Absent: distended, tenderness, guarding, rebound - Extremities Exam Extremities exam: Present: other (tense severe nonpitting edema lower extremities knee to feet) - Neurological Exam Neurological exam: Present: alert, oriented X3 - Psychiatric Psychiatric exam: Present: normal affect, normal mood - Skin Skin exam: Present: warm, dry, intact, normal color. Absent: rash ED Course Vital Signs 04/23/21 04/23/21 04/23/21 06:02 07:54 07:55 Temperature 98.9 F Pulse Rate 78 76 76 Respiratory 20 Rate Blood Pressure 144/89 144/89 Blood Pressure 184/97 [Left] O2 Sat by Pulse 100 Oximetry 04/23/21 08:02 Temperature Pulse Rate 76 Respiratory 24 Rate Blood Pressure Blood Pressure 144/89 [Left] O2 Sat by Pulse 96 Oximetry - Reevaluation(s) Reevaluation #1: 04/23/21 09:32 I spoke with [facility] physician for admission approvial. Awaiting bed assignment. Beds are currently not available. I will receive update in 2 hours. ED Medical Decision Making - Lab Data Result diagrams: 04/23/21 08:01 04/23/21 08:01 - EKG Data -: EKG Interpreted by Me EKG shows normal: sinus rhythm Rate: normal - EKG Data Interpretation: LVH 04/23/21 09:09 EKG obtained 904 EKG interpreted by Rate 70 bpm normal sinus rhythm rightward axis nonischemic T wave Pattern positive LVH ST elevation anterior leads due to repolarization abnormality - Radiology Data Radiology results: report reviewed - Medical Decision Making Mr. Huerta is a 65-year-old male with history of systolic heart failure, pulmonary hypertension, obesity hypoventilation syndrome of sleep obstructive apnea presents with shortness of breath. He has been noncompliant with medication. He has been unable to obtain his medication refills due to lack of transportation and family assistance. Work-up notable for mild perihilar edema on chest radiograph. Troponin within normal limits. proBNP within normal limits. Oxygen 93% on room air. He has obvious work of breathing at rest. Symptoms addressed with home medications including carvedilol, isosorbide monon itrate, lisinopril. Patient also received IV furosemide. No evidence of pneumonia. No persistent tachycardia or chest pain to indicate pulmonary embolism. Presentation attributed to medication noncompliance and exacerbation of systolic heart failure, pulmonary hypertension and malignant hypertension. Mr. Huerta will be admitted to this facility [facility]. Discussed case with hospitalist Dr. Kuo. Critical care attestation.: If time is entered above; I have spent that time in minutes in the direct care of this critically ill patient, excluding procedure time. ED Disposition Clinical Impression: Systolic CHF, acute on chronic, Obesity hypoventilation syndrome, Pulmonary hypertension, DANIS (obstructive sleep apnea), Hypertensive urgency, malignant, Acute respiratory failure, CHF exacerbation Disposition: 09 ADMITTED INPATIENT Is pt being admited?: Yes Does the pt Need Aspirin: No Condition: Stable
--- NOTE | 2021-04-23 08:12 | XRay Report ---
CHEST 1 VIEW 04/23/2021 7:05 AM INDICATION / CLINICAL INFORMATION: Dyspnea. COMPARISON: 03/08/2019 FINDINGS: SUPPORT DEVICES: None. HEART / MEDIASTINUM: There is hilar prominence. There is venous congestion. There is prominence the c ardiac silhouette. LUNGS / PLEURA: There is mild perihilar edema. No pneumothorax. ADDITIONAL FINDINGS: No significant additional findings. IMPRESSION: 1. There is mild perihilar edema. 2. There is hilar prominence which is likely vascular. Short-term follow-up PA and lateral chest radi ographs are recommended as the next several days to weeks to reevaluate. Signer Name: Teofilo Barger MD Signed: 04/23/2021 8:08 AM Workstation Name: [id number]
[2021-04-23 08:30] LABS: Basophils # (Auto) 0.2 K/mm3 (0.0-0.1); Basophils % (Auto) 2.3 % (0.0-1.8); Eosinophils # (Auto) 0.2 K/mm3 (0.0-0.4); Lymphocytes # (Auto) 0.7 K/mm3 (1.2-5.4); Lymphocytes % (Auto) 8.1 % (13.4-35.0); Mean Corpuscular HGB Conc 31 % (32-34); Mean Corpuscular Volume 82 fl (84-94); Monocytes # (Auto) 0.5 K/mm3 (0.0-0.8); Monocytes % (Auto) 5.1 % (0.0-7.3); Platelet Count 291 K/mm3 (140-440); Red Blood Count 4.75 M/mm3 (3.65-5.03)
[2021-04-23 08:55] LABS: Alanine Aminotransferase 36 units/L (7-56); Albumin 3.8 g/dL (3.9-5); BUN/Creatinine Ratio 16; Blood Urea Nitrogen 16 mg/dL (9-20); Calcium 8.9 mg/dL (8.4-10.2); Hemolysis Index 6
--- NOTE | 2021-04-23 11:41 | History and Physical Report ---
History of Present Illness Chief complaint: I cannot breathe and I do not have a medicine History of present illness: 65 YO Male with CVA, Systolic CHF(EF 20%), DM, Obesity Hypoventilation Syndrome, OA, Noncompliance presents to ED for evaluation. Patient reports "I cannot breathe and I ran out of my medicine". Patient states that he has experienced shortness of breath over the past 1 week with worsening symptoms over the past 4 days. Pt acknowledges dypsnea on exertion, dypsnea at rest, leg edema, decreased exercise tolerance, Orthopnea/PND, as well as high blood Pressure. Pt acknowledges 15 lbs weight gain over the past 1week as well as dietary noncompliance, as well as noncompliance with his medication. EMS notified, and upon arrival the patient was found to be in respiratory distress. Pt transported to [facility]. Pt seen and evaluated in the emergency department. All lab and imaging studies reviewed. Patient was found to be sitting forward in bed, using accessory muscles to breathe, unable to speak in complete sentences,. Patient found to have a pulse oximetry of 88% on room air which is consistent with acute hypoxemic respiratory failure. Patient placed on supplemental oxygen without significant improvement in symptoms. Patient placed on noninvasive positive pressure ventilation with improvement in symptoms. Pt denies fever, chills, CP, Palpitations, NVD, Trauma, BRBPR, Skin Rash, Productive cough, unilateral leg swelling, calf pain, individual/family history of DVT/PE, bleeding, blood c lotting disorders, or known exposure to COVID-19. Pt admitted to telemetry and initiated on CHF protocol. Cardiology consulted in ED. prior admission on 09/16/2018 reviewed. All medication listed at time of admission has been reconciled. Advanced care planning conducted in ED. Patient is fully vac cinated against COVID-19. Past History Past Medical History: arthritis, diabetes, heart failure, hypertension, stroke Past Surgical History: total hip replacement, total knee replacement Social history: , lives with family. denies: smoking, alcohol abuse, prescription drug abuse Family history: diabetes, hypertension Medications and Allergies Allergies Allergy/AdvReac Type Severity Reaction Status Date / Time No Known Allergies Allergy Verified 04/23/21 06:03 Home Medications Medication Instructions Recorded Confirmed Last Taken Type Aspirin [Adult Aspirin] 81 mg PO DAILY 09/16/18 04/23/21 1 Week Ago History ~04/16/21 AtorvaSTATin [Lipitor] 40 mg PO QHS 09/16/18 04/23/21 1 Week Ago History ~04/16/21 Furosemide [Lasix TAB] 40 mg PO QDAY 09/16/18 04/23/21 1 Week Ago History ~04/16/21 Gabapentin [Neurontin] 600 mg PO BID 09/16/18 04/23/21 1 Week Ago History ~04/16/21 Isosorbide Mononitrate 60 mg PO DAILY 09/16/18 04/23/21 1 Week Ago History ~04/16/21 carvediloL [Coreg] 25 mg PO BID 09/16/18 04/23/21 1 Week Ago History ~04/16/21 lisinopriL [Zestril TAB] 40 mg PO BID 09/16/18 04/23/21 1 Week Ago History ~04/16/21 Isosorb Dinit/Hydralazine [Bidil 1 each PO Q8HR tablet 09/20/18 04/23/21 1 Week Ago Rx 20/37.5MG] ~04/16/21 metOLazone [Zaroxolyn] 5 mg PO QDAY tablet 09/20/18 04/23/21 1 Week Ago Rx ~04/16/21 Sildenafil Citrate [Viagra] 50 mg PO PRN PRN 04/23/21 04/23/21 Unknown History glipiZIDE [Glucotrol] 5 mg PO BIDWM 04/23/21 04/23/21 1 Week Ago History ~04/16/21 Active Meds: Active Medications Isosorbide Mononitrate (Isosorbide Mononitrate Er 60 Mg Tab) 60 mg PO QDAY PATRICE Review of Systems Constitutional: weight gain, no weight loss, no fever, no chills Ears, nose, mouth and throat: no ear pain, no ear discharge, no tinnitis, no decreased hearing, no nose pain, no nasal congestion Cardiovascular: orthopnea, edema, shortness of breath, dyspnea on exertion, paro xysmal nocturnal dyspnea, high blood pressure, decreased exercise tolerance, no chest pain Respiratory: no cough, no cough with sputum, no excessive sputum Gastrointestinal: no nausea, no vomiting, no diarrhea, no constipation Genitourinary Male: no hematuria, no flank pain, no discharge, no urinary frequency, no urinary hesitancy Rectal: no pain, no incontinence, no bleeding Musculoskeletal: no neck stiffness, no neck pain, no shooting leg pain Integumentary: no rash, no pruritis, no redness, no sores, no wounds Neurological: no head injury, no transient paralysis, no paralysis, no weakness, no numbness, no tingling, no seizures Psychiatric: no anxiety, no memory loss, no change in sleep habits, no sleep disturbances, no insomnia, no hypersomnia, no change in appetite Endocrine: no cold intolerance, no heat intolerance, no polyphagia, no excessive thirst, no polydipsia, no weight change Hematologic/Lymphatic: no easy bruising, no easy bleeding, no lymphedema Allergic/Immunologic: no allergic rhinitis, no anaphylaxis Exam - Constitutional Vitals: Temp Pulse Resp BP Pulse Ox 98.9 F 76 24 144/89 96 04/23/21 06:02 04/23/21 08:02 04/23/21 08:02 04/23/21 08:02 04/23/21 08:02 General appearance: Present: mild distress - EENT Eyes: Present: PERRL ENT: hearing intact, clear oral mucosa - Neck Neck: Present: supple, normal ROM - Respiratory Respiratory effort: labored, accessory muscle use, stridor Respiratory: bilateral: diminished, rales - Cardiovascular Heart Sounds: Present: S1 & S2. Absent: rub, click - Extremities Extremities: pulses symmetrical Extremity abnormal: edema Peripheral Pulses: within normal limits - Abdominal General gastrointestinal: Present: soft, non-tender, non-distended, normal bowel sounds Male genitourinary: Present: normal - Integumentary Integumentary: Present: clear, warm, dry - Musculoskeletal Musculoskeletal: generalized weakness - Psychiatric Psychiatric: appropriate mood/affect, intact judgment & insight - Neurologic Neurologic: CNII-XII intact, moves all extremities HEART Score - HEART Score Troponin: Troponin T < 0.010 ng/mL (0.00-0.029) 04/23/21 08:01 Results - Labs CBC & Chem 7: 04/23/21 08:01 04/23/21 08:01 Labs: Abnormal lab results 04/23/21 04/23/21 Range/Units 08:01 08:01 MCV 82 L (84-94) fl MCH 25 L (28-32) pg MCHC 31 L (32-34) % RDW 23.0 H (13.2-15.2) % Lymph % (Auto) 8.1 L (13.4-35.0) % Baso % (Auto) 2.3 H (0.0-1.8) % Lymph # (Auto) 0.7 L (1.2-5.4) K/mm3 Baso # (Auto) 0.2 H (0.0-0.1) K/mm3 Seg Neutrophils % 82.5 H (40.0-70.0) % Glucose 163 H (75-100) mg/dL Albumin 3.8 L (3.9-5) g/dL Assessment and Plan - Patient Problems (1) Acute hypoxemic respiratory failure Current Visit: Yes Status: Acute Plan to address problem: Chest x-ray, supplemental oxygen, pulse oximetry, noninvasive positive pressure ventilation, supportive care. Pulmonary toilet. (2) Systolic CHF, acute on chronic Current Visit: Yes Status: Acute Plan to address problem: Strict I/O, monitor urine output every shift, daily weight, afterload reduction, blood pressure control, diuretic therapy, monitor urine output every shift. Monitor fluid balance. Echocardiogram ordered and pending at time of admission (3) Hypertensive urgency, malignant Current Visit: Yes Status: Acute Plan to address problem: Monitor blood pressure every shift, continue medical management, IV hydralazine every 6 hours as needed for systolic blood pressure greater than 155 mmHg (4) Obesity hypoventilation syndrome Current Visit: Yes Status: Acute Plan to address problem: Balanced diet, increase physical activity discharge, outpatient pulmonary follow-up for sleep study. (5) Pulmonary hypertension Current Visit: Yes Status: Acute Plan to address problem: Supportive care, continue medical management, outpatient pulmonary follow-up. Echocardiogram ordered and pending at time of admission. (6) DVT prophylaxis Current Visit: No Status: Acute Plan to address problem: SCD to bilateral lower extremities while in bed, patient is ambulatory (7) Advance care planning Current Visit: Yes Status: Acute Plan to address problem: Disease education conducted, care plan discussed, diagnoses discussed, prognosis discussed, patient is full code. Patient counseled regarding noncompliance with low-sodium diet. Patient acknowledges understanding instructions. Patient knowledges understanding and agreement with care plan. +30 minutes.
[2021-04-23] MEDS ORDERED: HYDROmorphone 1 MG/1 ML INJ IV PRN (12:26)
[2021-04-23] MEDS ORDERED: ONDANSETRON 4 MG/2 ML INJ IV PRN (12:26)
[2021-04-23] MEDS ORDERED: oxyCODONE /ACETAMINOPHEN 5-325MG TAB PO PRN (12:26)
--- NOTE | 2021-04-23 13:14 | Electrocardiograph Report ---
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
[2021-04-23 18:29] LABS: Free T4 (Free Thyroxine) 1.24 ng/dL (0.76-1.46)
[2021-04-23] MEDS: FUROSEMIDE 40 MG/4 ML INJ IV SCH (18:52)
[2021-04-24] MEDS: hydrALAZINE 20 MG/1 ML INJ IV PRN ×3 (00:44→15:47)
[2021-04-24 04:42] LABS: Basophils % (Auto) 0.6 % (0.0-1.8); Eosinophils # (Auto) 0.2 K/mm3 (0.0-0.4); Eosinophils % (Auto) 2.1 % (0.0-4.3); Lymphocytes # (Auto) 1.3 K/mm3 (1.2-5.4); Lymphocytes % (Auto) 16.5 % (13.4-35.0); Mean Corpuscular HGB Conc 30 % (32-34); Mean Corpuscular Volume 83 fl (84-94); Monocytes # (Auto) 0.5 K/mm3 (0.0-0.8); Monocytes % (Auto) 6.5 % (0.0-7.3); Platelet Count 310 K/mm3 (140-440); Red Blood Count 4.47 M/mm3 (3.65-5.03)
[2021-04-24 04:43] LABS: Hemoglobin 11.2 gm/dl (11.8-15.2); Red Cell Distribution Width 22.2 % (13.2-15.2)
[2021-04-24 04:56] LABS: BUN/Creatinine Ratio 15; Blood Urea Nitrogen 15 mg/dL (9-20); Calcium 8.5 mg/dL (8.4-10.2); Hemolysis Index 3
[2021-04-24] MEDS: FUROSEMIDE 40 MG/4 ML INJ IV SCH ×2 (05:47→18:34)
--- NOTE | 2021-04-24 12:21 | Consultation ---
History of Present Illness Consult date: 04/24/21 Consult reason: congestive heart failure, shortness of breath History of present illness: Mr. Huerta, a 65 years old male have a known history of EF reduced heart failure, diabetes, obesity hypoventilation syndrome and a history of noncompliance presented with shortness of breath and leg swelling for 1 week. Patient tested positive for COVID-19. cardiology is consulted for acute decompensated heart failure. Patient ran out of the medications about 1 week and he started feeling shortness of breath and leg swelling and the PND symptoms after that. He denies any fever. He reported his breathing has been better after the IV diuretics and BiPAP. Otherwise patient denied any chest pain or palpitation or syncope. Past History Past Medical History: arthritis, diabetes, heart failure, hypertension, stroke Past Surgical History: total hip replacement, total knee replacement Social history: , lives with family. denies: smoking, alcohol abuse, prescription drug abuse Family history: diabetes, hypertension Medications and Allergies Allergies Allergy/AdvReac Type Severity Reaction Status Date / Time No Known Allergies Allergy Verified 04/23/21 06:03 Home Medications Medication Instructions Recorded Confirmed Last Taken Type Aspirin [Adult Aspirin] 81 mg PO DAILY 09/16/18 04/23/21 1 Week Ago History ~04/16/21 AtorvaSTATin [Lipitor] 40 mg PO QHS 09/16/18 04/23/21 1 Week Ago History ~04/16/21 Furosemide [Lasix TAB] 40 mg PO QDAY 09/16/18 04/23/21 1 Week Ago History ~04/16/21 Gabapentin [Neurontin] 600 mg PO BID 09/16/18 04/23/21 1 Week Ago History ~04/16/21 Isosorbide Mononitrate 60 mg PO DAILY 09/16/18 04/23/21 1 Week Ago History ~04/16/21 carvediloL [Coreg] 25 mg PO BID 09/16/18 04/23/21 1 Week Ago History ~04/16/21 lisinopriL [Zestril TAB] 40 mg PO BID 09/16/18 04/23/21 1 Week Ago History ~04/16/21 Isosorb Dinit/Hydralazine [Bidil 1 each PO Q8HR tablet 09/20/18 04/23/21 1 Week Ago Rx 20/37.5MG] ~04/16/21 metOLazone [Zaroxolyn] 5 mg PO QDAY tablet 09/20/18 04/23/21 1 Week Ago Rx ~04/16/21 Sildenafil Citrate [Viagra] 50 mg PO PRN PRN 04/23/21 04/23/21 Unknown History glipiZIDE [Glucotrol] 5 mg PO BIDWM 04/23/21 04/23/21 1 Week Ago History ~04/16/21 Active Meds: Active Medications Acetaminophen (Acetaminophen 325 Mg Tab) 650 mg PO Q4H PRN PRN Reason: Pain MILD(1-3)/Fever >100.5/HINDS Aspirin (Aspirin Ec 81 Mg Tab) 81 mg PO DAILY [facility] Furosemide (Furosemide 40 Mg/4 Ml Inj) 40 mg IV BID@0600,1800 [facility] Last Admin: 04/24/21 05:47 Dose: 40 mg Hydralazine HCl (Hydralazine 20 Mg/1 Ml Inj) 10 mg IV Q6HR PRN PRN Reason: Hypertension Last Admin: 04/24/21 08:12 Dose: 10 mg Hydromorphone HCl (Hydromorphone 1 Mg/1 Ml Inj) 0.5 mg IV Q23H PRN PRN Reason: Pain , Severe (7-10) Isosorbide Mononitrate (Isosorbide Mononitrate Er 60 Mg Tab) 60 mg PO QDAY [facility] Last Admin: 04/24/21 10:44 Dose: 60 mg Ondansetron HCl (Ondansetron 4 Mg/2 Ml Inj) 4 mg IV Q8H PRN PRN Reason: Nausea And Vomiting Oxycodone/Acetaminophen (Oxycodone /Acetaminophen 5-325mg Tab) 1 tab PO Q16H PRN PRN Reason: Pain, Moderate (4-6) Sodium Chloride (Sodium Chloride 0.9% 10 Ml Flush Syringe) 10 ml IV BID [facility] Last Admin: 04/24/21 10:41 Dose: 10 ml Sodium Chloride (Sodium Chloride 0.9% 10 Ml Flush Syringe) 10 ml IV PRN PRN PRN Reason: LINE FLUSH Review of Systems All systems: negative (Mentioned in HPI) Physical Examination Vital Signs Temp Pulse Resp BP Pulse Ox 98.9 F 78 20 184/97 100 04/23/21 06:02 04/23/21 06:02 04/23/21 06:02 04/23/21 06:02 04/23/21 06:02 General appearance: no acute distress Neck: Positive: neck supple, JVD/HJR (Elevated JVP) Cardiac: Positive: Regular Rate (Bilateral) Lungs: Positive: Rales Abdomen: Positive: Soft (Obese) Extremities: Present: +2 Edema (Bilateral up to the thighs), warm Results 04/24/21 03:28 04/24/21 03:28 CBC 04/24/21 Range/Units 03:28 WBC 7.7 (4.5-11.0) K/mm3 RBC 4.47 (3.65-5.03) M/mm3 Hgb 11.2 L (11.8-15.2) gm/dl Hct 37.0 (35.5-45.6) % Plt Count 310 (140-440) K/mm3 Lymph # (Auto) 1.3 (1.2-5.4) K/mm3 [place] # (Auto) 0.5 (0.0-0.8) K/mm3 Eos # (Auto) 0.2 (0.0-0.4) K/mm3 Baso # (Auto) 0.0 (0.0-0.1) K/mm3 Comprehensive Metabolic Panel 04/24/21 Range/Units 03:28 Sodium 142 (137-145) mmol/L Potassium 3.8 (3.6-5.0) mmol/L Chloride 105.4 (98-107) mmol/L Carbon Dioxide 24 (22-30) mmol/L BUN 15 (9-20) mg/dL Creatinine 1.0 (0.8-1.3) mg/dL Glucose 170 H (75-100) mg/dL Calcium 8.5 (8.4-10.2) mg/dL - Imaging and Cardiology Echo: report reviewed EKG: report reviewed - EKG Interpretation EKG: sinus rhythm, no acute changes EKG interpretations - Telemetry EKG Rhythm: Sinus Rhythm (No acute ST-T change.) Assessment and Plan - Patient Problems (1) CHF exacerbation Current Visit: Yes Status: Acute Qualifiers: Heart failure type: systolic Qualified Code(s): I50.23 - Acute on chronic systolic (congestive) heart failure Plan to address problem: -In setting of medications noncompliance and COVID-19 infection -Reviewed the patient's echo which showed LVEF is about 20 to 25%, mild LVH, grade 2 diastolic dysfunction. Pulmonary hypertension cannot be assessed because in adequate TR signal -Continue Lasix 40 mg IV every 12 hours -Straight I/O, daily weight and fluid restriction less than 1.5 L per 24 hours -Closely monitor electrolyte his and kidney function, keep potassium greater than 4 and magnesium greater than 2. -Restart carvedilol 12.5 mg twice daily, restart lisinopril 40 mg daily and continue Imdur and hydralazine -We will consider to add the spironolactone if the patient's blood pressure, kidney functions and electrolyte is a stable. (2) Acute hypoxemic respiratory failure Current Visit: Yes Status: Acute Plan to address problem: -In setting of acute decompensated heart failure and a COVID-19 infection -Acute decompensated heart failure as managed above -Defer to the primary team further management of COVID-19 infection
[2021-04-24] MEDS: carvediloL 12.5 MG TAB PO SCH ×2 (13:38→23:23)
[2021-04-24] MEDS: ASPIRIN EC 81 MG TAB PO SCH (13:38)
[2021-04-24] MEDS: LISINOPRIL 40 MG TAB PO SCH (13:39)
[2021-04-24] MEDS: DEXAMETHASONE 2 MG TAB PO SCH (13:40)
[2021-04-24 14:29] LABS: Alanine Aminotransferase 21 units/L (7-56); Albumin 3.5 g/dL (3.9-5); BUN/Creatinine Ratio 16; Blood Urea Nitrogen 16 mg/dL (9-20); Calcium 8.4 mg/dL (8.4-10.2); Hemolysis Index 10
[2021-04-24] MEDS ORDERED: REMDESIVIR 200 MG in SODIUM CHLORIDE 0.9% 250ML 250 ML IV ONE (15:00)
[2021-04-24] MEDS: SODIUM CHLORIDE 0.9% 50 ML IVPB IV SCH (16:23)
--- NOTE | 2021-04-24 16:30 | Progress Note ---
Assessment and Plan Mr. Huerta, a 65 years old male have a known history of EF reduced heart failure, diabetes, obesity hypoventilation syndrome and a history of noncompliance presented with shortness of breath and leg swelling for 1 week. Patient tested positive for COVID-19. Assessment and Plan: -- CoVID 19 infection -Patient tested positive for COVID-19 virus -CXR shows pulmonary congestion -Placed on dexamethasone for total 10 days and remdesivir total 5 days -Infectious disease consulted, -Droplet/contact isolation -Continue SPO2 monitoring -Supplemental oxygen as needed -Pulmonary hygiene -Prone to sleep -Vitamin C, vitamin D, zinc -Anticoagulation per protocol -Lasix IV also ordered for pulmonary edema -- Acute hypoxemic respiratory failure continue supplemental oxygen, pulse oximetry, noninvasive positive pressure ventilation as needed, cont supportive care. Pulmonary toilet. -- Systolic CHF, acute on chronic Strict I/O, monitor urine output every shift, daily weight, afterload reduction, blood pressure control, cont diuretic therapy, monitor urine output every shift. Monitor fluid balance. Echocardiogram ordered -- Hypertensive urgency, malignant Monitor blood pressure every shift, continue medical management, IV hydralazine every 6 hours as needed for systolic blood pressure greater than 155 mmHg --Morbid Obesity Balanced diet, increase physical activity discharge and pulmonary follow-up for sleep study as outpatient when clinically stable. -- Pulmonary hypertension continue medical management, outpatient pulmonary follow-up. -- DVT prophylaxis SCD to bilateral lower extremities while in bed, patient is ambulatory --Full code status Daily clinical course: 04/24/20; patient is positive for COVID-19, initiate COVID-19 protocol, started on dexamethasone and remdesivir. Consult ID, continue diuresis, follow 2D echocardiogram. Subjective Date of service: 04/24/21 Interval history: Patient seen and examined. Medical records and medication list reviewed. No acute event overnight noted by the RN. Patient c/o difficulty breathing and chest tightness. positive for COVID 19 Discussed plan of care at bedside with patient. Objective - Exam Narrative Exam: Limited physical exam due to COVID-19 pandemic to minimize transmission of the disease and to preserve PPE. Vital reviewed and stable. GENERAL: well-developed obese -[place] male lying on bed appeared to be in no discomfort. HEENT: Normocephalic. Atraumatic. NECK: Supple. CHEST/LUNGS: breathing with supplemental O2 HEART/CARDIOVASCULAR: Heart rate stable on telemetry ABDOMEN: Visibly not distended SKIN: There is no rash NEURO: No focal motor deficit. Follows command. MUSCULOSKELETAL: No joint effusion EXTRIMITY: No swelling, no cyanosis or clubbing. PSYCH: Cooperative. - Constitutional Vitals: Vital Signs - 12hr 04/24/21 04/24/21 04/24/21 04:30 05:00 05:30 Pulse Rate 75 69 65 Respiratory 14 17 17 Rate Blood Pressure 175/88 168/91 164/86 Blood Pressure [Left] O2 Sat by Pulse 99 97 99 Oximetry 04/24/21 04/24/21 04/24/21 06:00 07:00 07:30 Pulse Rate 62 68 73 Respiratory 16 16 14 Rate Blood Pressure 160/91 157/85 172/88 Blood Pressure [Left] O2 Sat by Pulse 98 98 96 Oximetry 04/24/21 04/24/21 04/24/21 08:00 08:12 08:30 Pulse Rate 72 Respiratory Rate Blood Pressure 183/102 183/102 183/102 Blood Pressure [Left] O2 Sat by Pulse 99 100 Oximetry 04/24/21 04/24/21 04/24/21 09:00 09:37 09:48 Pulse Rate Respiratory Rate Blood Pressure 162/85 162/85 Blood Pressure [Left] O2 Sat by Pulse 96 97 100 Oximetry 04/24/21 04/24/21 04/24/21 10:00 10:30 10:44 Pulse Rate 76 73 74 Respiratory 16 17 Rate Blood Pressure 177/88 177/88 180/100 Blood Pressure [Left] O2 Sat by Pulse 100 100 Oximetry 04/24/21 04/24/21 04/24/21 11:00 11:30 11:59 Pulse Rate 78 77 76 Respiratory 12 16 18 Rate Blood Pressure 180/100 180/100 Blood Pressure 156/88 [Left] O2 Sat by Pulse 100 100 98 Oximetry 04/24/21 04/24/21 04/24/21 12:00 12:30 13:00 Pulse Rate 76 76 78 Respiratory 13 19 18 Rate Blood Pressure 154/74 154/74 147/84 Blood Pressure [Left] O2 Sat by Pulse 100 99 78 L Oximetry 04/24/21 04/24/21 04/24/21 13:30 13:38 13:39 Pulse Rate 74 78 78 Respiratory 17 Rate Blood Pressure 147/84 147/81 148/81 Blood Pressure [Left] O2 Sat by Pulse 100 Oximetry 04/24/21 04/24/21 04/24/21 14:00 14:30 15:00 Pulse Rate 73 70 74 Respiratory 18 19 20 Rate Blood Pressure 204/103 204/103 184/98 Blood Pressure [Left] O2 Sat by Pulse 100 100 100 Oximetry 04/24/21 04/24/21 04/24/21 15:30 15:47 16:00 Pulse Rate 70 74 68 Respiratory 19 17 Rate Blood Pressure 184/98 188/98 157/86 Blood Pressure [Left] O2 Sat by Pulse 100 100 Oximetry - Labs CBC & Chem 7: 04/24/21 03:28 04/26/21 06:07 Labs: Abnormal lab results 04/23/21 04/24/21 04/24/21 Range/Units 08:51 03:28 03:28 Hgb 11.2 L (11.8-15.2) gm/dl MCV 83 L (84-94) fl MCH 25 L (28-32) pg MCHC 30 L (32-34) % RDW 22.2 H (13.2-15.2) % Seg Neutrophils % 74.3 H (40.0-70.0) % Sodium (137-145) mmol/L Potassium (3.6-5.0) mmol/L Glucose 170 H (75-100) mg/dL Albumin (3.9-5) g/dL Coronavirus (PCR) Positive A (Negative) 04/24/21 Range/Units 13:44 Hgb (11.8-15.2) gm/dl MCV (84-94) fl MCH (28-32) pg MCHC (32-34) % RDW (13.2-15.2) % Seg Neutrophils % (40.0-70.0) % Sodium 134 L D (137-145) mmol/L Potassium 3.5 L (3.6-5.0) mmol/L Glucose 216 H (75-100) mg/dL Albumin 3.5 L (3.9-5) g/dL Coronavirus (PCR) (Negative) HEART Score - HEART Score Troponin: Troponin T < 0.010 ng/mL (0.00-0.029) 04/23/21 08:01
[2021-04-25 06:05] LABS: Alanine Aminotransferase 18 units/L (7-56); Albumin 3.4 g/dL (3.9-5); BUN/Creatinine Ratio 16; Blood Urea Nitrogen 18 mg/dL (9-20); Calcium 8.6 mg/dL (8.4-10.2); Hemolysis Index 4
[2021-04-25] MEDS: FUROSEMIDE 40 MG/4 ML INJ IV SCH (06:14)
--- NOTE | 2021-04-25 12:04 | Progress Note ---
Assessment and Plan - Patient Problems (1) CHF exacerbation Current Visit: Yes Status: Acute Qualifiers: Heart failure type: systolic Qualified Code(s): I50.23 - Acute on chronic systolic (congestive) heart failure Plan to address problem: -In setting of medications noncompliance and COVID-19 infection -Reviewed the patient's echo which showed LVEF is about 20 to 25%, mild LVH, grade 2 diastolic dysfunction. Pulmonary hypertension cannot be assessed because in adequate TR signal -Increase the Lasix to 60 mg IV every 12 hours (patient is already got the 40 IV this morning) -Straight I/O, daily weight and fluid restriction less than 1.5 L per 24 hours -Closely monitor electrolyte his and kidney function, keep potassium greater than 4 and magnesium greater than 2. -Continue carvedilol 12.5 mg twice daily and lisinopril 40 mg daily and Imdur 60 mg daily -Add p.o. hydralazine 25 mg every 8 hours for better afterload reduction -Start the patient on spironolactone 25 mg daily today; monitor patient's kidney functions and potassium (2) Acute hypoxemic respiratory failure Current Visit: Yes Status: Acute Plan to address problem: -In setting of acute decompensated heart failure and a COVID-19 infection -Acute decompensated heart failure as managed above -Defer to the primary team further management of COVID-19 infection Subjective Date of service: 04/25/21 Interval history: No overnight events. Patient denies any chest pain. Patient reported that he did not really urinated that much. Objective Vital Signs Pulse Resp BP Pulse Ox 04/25/21 06:00 57 L 15 176/94 100 04/25/21 05:30 57 L 13 170/89 100 04/25/21 05:00 60 13 170/89 100 04/25/21 04:30 61 13 149/78 100 04/25/21 04:00 61 14 149/78 100 04/25/21 02:30 63 17 133/76 100 04/25/21 02:00 60 15 133/76 100 04/25/21 01:30 63 16 169/82 99 04/25/21 01:00 65 16 169/82 100 04/25/21 00:30 59 L 12 164/83 100 04/25/21 00:00 63 13 164/83 100 04/24/21 23:30 68 16 148/86 100 04/24/21 23:23 70 160/83 04/24/21 23:20 71 13 148/86 100 04/24/21 23:00 73 13 148/86 100 04/24/21 22:30 71 18 160/83 100 04/24/21 22:00 70 16 160/83 100 04/24/21 21:30 74 16 193/102 100 04/24/21 19:30 77 20 193/93 100 04/24/21 18:30 68 16 154/77 100 04/24/21 18:00 74 18 154/77 100 04/24/21 17:30 76 19 174/90 100 04/24/21 17:00 72 20 174/90 100 04/24/21 16:30 73 20 157/86 98 04/24/21 16:00 68 17 157/86 100 04/24/21 15:47 74 188/98 04/24/21 15:30 70 19 184/98 100 04/24/21 15:00 74 20 184/98 100 04/24/21 14:30 70 19 204/103 100 04/24/21 14:00 73 18 204/103 100 04/24/21 13:39 78 148/81 04/24/21 13:38 78 147/81 04/24/21 13:30 74 17 147/84 100 04/24/21 13:00 78 18 147/84 78 L 04/24/21 12:30 76 19 154/74 99 04/24/21 12:00 76 13 154/74 100 - Physical Examination Neck: Positive: neck supple, JVD/HJR (Elevated JVP) Abdomen: Positive: Soft (Obese) Extremities: Present: +2 Edema (Bilateral up to the thighs), warm - Labs and Meds Cardiac Enzymes 04/24/21 04/25/21 Range/Units 13:44 04:35 AST 14 11 (5-40) units/L Comprehensive Metabolic Panel 04/24/21 04/25/21 Range/Units 13:44 04:35 Sodium 134 L D 135 L (137-145) mmol/L Potassium 3.5 L 4.2 (3.6-5.0) mmol/L Chloride 101.4 103.1 (98-107) mmol/L Carbon Dioxide 24 23 (22-30) mmol/L BUN 16 18 (9-20) mg/dL Creatinine 1.0 1.1 (0.8-1.3) mg/dL Glucose 216 H 220 H (75-100) mg/dL Calcium 8.4 8.6 (8.4-10.2) mg/dL AST 14 11 (5-40) units/L ALT 21 18 (7-56) units/L Alkaline Phosphatase 98 93 (35-129) units/L Total Protein 7.4 7.4 (6.3-8.2) g/dL Albumin 3.5 L 3.4 L (3.9-5) g/dL - Imaging and Cardiology EKG: report reviewed Echo: report reviewed
[2021-04-25] MEDS: ASPIRIN EC 81 MG TAB PO SCH (12:37)
[2021-04-25] MEDS: carvediloL 12.5 MG TAB PO SCH ×2 (12:37→22:16)
[2021-04-25] MEDS ORDERED: SPIRONOLACTONE 25 MG TAB PO SCH (13:00)
[2021-04-25] MEDS: LISINOPRIL 40 MG TAB PO SCH (13:31)
[2021-04-25] MEDS: DEXAMETHASONE 2 MG TAB PO SCH (13:31)
--- NOTE | 2021-04-25 17:33 | Progress Note ---
Assessment and Plan Mr. Huerta, a 65 years old male have a known history of EF reduced heart failure, diabetes, obesity hypoventilation syndrome and a history of noncompliance presented with shortness of breath and leg swelling for 1 week. Patient tested positive for COVID-19. Assessment and Plan: -- CoVID 19 infection -Patient tested positive for COVID-19 virus -CXR shows pulmonary congestion -Placed on dexamethasone for total 10 days and remdesivir total 5 days -Infectious disease consulted, -Droplet/contact isolation -Continue SPO2 monitoring -Supplemental oxygen as needed -Pulmonary hygiene -Prone to sleep -Vitamin C, vitamin D, zinc -Anticoagulation per protocol -Lasix IV also ordered for pulmonary edema -- Acute hypoxemic respiratory failure continue supplemental oxygen, pulse oximetry, noninvasive positive pressure ventilation as needed, cont supportive care. Pulmonary toilet. -- Systolic CHF, acute on chronic Strict I/O, monitor urine output every shift, daily weight, afterload reduction, blood pressure control, cont diuretic therapy, monitor urine output every shift. Monitor fluid balance. Echocardiogram ordered -- Hypertensive urgency, malignant Monitor blood pressure every shift, continue medical management, IV hydralazine every 6 hours as needed for systolic blood pressure greater than 155 mmHg --hypokalemia, repleted --Morbid Obesity Balanced diet, increase physical activity discharge and pulmonary follow-up for sleep study as outpatient when clinically stable. -- Pulmonary hypertension continue medical management, outpatient pulmonary follow-up. -- DVT prophylaxis SCD to bilateral lower extremities while in bed, patient is ambulatory --Full code status Daily clinical course: 04/24/21; patient is positive for COVID-19, initiate COVID-19 protocol, started on dexamethasone and remdesivir. Consult ID, continue diuresis, follow 2D echocardiogram. 04/25/21: Echo showed EF 15-20%, cont iv lasix, follow ID recommendation. cont dexamethasone and remdesivir. follow inflammatory markers. patient on supplemental O2. Continue to adjust BP medications Subjective Date of service: 04/25/21 Interval history: Patient seen and examined. Medical records and medication list reviewed. No acute event overnight noted by the RN. Patient on supplemental O2, tolerating diet, BP remains elevated Discussed plan of care at bedside with patient. Objective - Exam Narrative Exam: Limited physical exam due to COVID-19 pandemic to minimize transmission of the disease and to preserve PPE. Vital reviewed and stable. GENERAL: well-developed obese -[place] male lying on bed appeared to be in no discomfort. HEENT: Normocephalic. Atraumatic. NECK: Supple. CHEST/LUNGS: breathing with supplemental O2 HEART/CARDIOVASCULAR: Heart rate stable on telemetry ABDOMEN: Visibly not distended SKIN: There is no rash NEURO: No focal motor deficit. Follows command. MUSCULOSKELETAL: No joint effusion EXTRIMITY: No swelling, no cyanosis or clubbing. PSYCH: Cooperative. - Constitutional Vitals: Vital Signs - 12hr 04/25/21 04/25/21 04/25/21 06:00 06:30 07:00 Pulse Rate 57 L 68 64 Respiratory 15 13 14 Rate Blood Pressure 176/94 170/89 187/96 O2 Sat by Pulse 100 100 100 Oximetry 04/25/21 04/25/21 04/25/21 07:30 08:00 08:30 Pulse Rate 64 64 66 Respiratory 16 13 14 Rate Blood Pressure 187/96 192/91 192/91 O2 Sat by Pulse 100 100 100 Oximetry 04/25/21 04/25/21 04/25/21 09:00 09:30 10:00 Pulse Rate 63 63 82 Respiratory 14 15 16 Rate Blood Pressure 184/99 184/99 195/102 O2 Sat by Pulse 98 100 99 Oximetry 04/25/21 04/25/21 04/25/21 10:30 11:00 11:30 Pulse Rate 66 68 61 Respiratory 12 18 15 Rate Blood Pressure 195/102 187/83 187/83 O2 Sat by Pulse 100 98 100 Oximetry 04/25/21 04/25/21 04/25/21 12:00 12:30 12:37 Pulse Rate 63 63 76 Respiratory 16 15 Rate Blood Pressure 180/90 180/90 180/90 O2 Sat by Pulse 98 100 Oximetry 04/25/21 04/25/21 04/25/21 13:00 13:31 14:00 Pulse Rate 71 66 66 Respiratory 11 L 12 16 Rate Blood Pressure 197/103 197/103 152/73 O2 Sat by Pulse 94 99 96 Oximetry 04/25/21 04/25/21 04/25/21 14:31 15:01 15:31 Pulse Rate 67 65 68 Respiratory 15 16 17 Rate Blood Pressure 152/73 165/82 165/82 O2 Sat by Pulse 100 100 100 Oximetry 04/25/21 16:01 Pulse Rate 67 Respiratory 16 Rate Blood Pressure 161/83 O2 Sat by Pulse 100 Oximetry - Labs CBC & Chem 7: 04/24/21 03:28 04/26/21 06:07 Labs: Abnormal lab results 04/25/21 Range/Units 04:35 Sodium 135 L (137-145) mmol/L Glucose 220 H (75-100) mg/dL Albumin 3.4 L (3.9-5) g/dL HEART Score - HEART Score Troponin: Troponin T < 0.010 ng/mL (0.00-0.029) 04/23/21 08:01
[2021-04-25] MEDS: FUROSEMIDE 20 MG/2 ML INJ IV SCH (19:16)
[2021-04-25] MEDS: SODIUM CHLORIDE 0.9% 50 ML IVPB IV SCH (22:17)
[2021-04-25] MEDS: hydrALAZINE 25 MG TAB PO SCH (22:17)
[2021-04-25] MEDS: REMDESIVIR 100 MG in SODIUM CHLORIDE 0.9% 250ML 250 ML IV SCH (22:17)
[2021-04-26] MEDS: hydrALAZINE 25 MG TAB PO SCH ×3 (05:11→21:51)
[2021-04-26] MEDS: FUROSEMIDE 20 MG/2 ML INJ IV SCH ×2 (05:11→17:52)
[2021-04-26 06:50] LABS: Alanine Aminotransferase 19 units/L (7-56); Albumin 3.4 g/dL (3.9-5); BUN/Creatinine Ratio 20; Blood Urea Nitrogen 22 mg/dL (9-20); Calcium 8.9 mg/dL (8.4-10.2); Hemolysis Index 177
[2021-04-26] MEDS: ASPIRIN EC 81 MG TAB PO SCH (10:25)
[2021-04-26] MEDS: DEXAMETHASONE 2 MG TAB PO SCH (10:25)
[2021-04-26] MEDS: carvediloL 12.5 MG TAB PO SCH ×2 (10:27→21:52)
--- NOTE | 2021-04-26 12:24 | Progress Note ---
Assessment and Plan - Patient Problems (1) CHF exacerbation Current Visit: Yes Status: Acute Qualifiers: Heart failure type: systolic Qualified Code(s): I50.23 - Acute on chronic systolic (congestive) heart failure Plan to address problem: Patient presented with acute Covid infection, and acute exacerbation of chronic systolic heart failure. He has a nonischemic cardiomyopathy, cardiac catheterization in September 2018 reported biventricular heart failure with left ventricular ejection fraction 20%, severe pulmonary hypertension with pulmonary artery systolic pressure of 85, and angiographically normal coronary arteries. His current heart failure exacerbation is likely due to his noncompliance with recommended medical therapy. We will reinstitute guideline directed medical therapy and continue conservative cardiac medical management. Outpatient follow-up with his primary doctor of pharmacy is recommended for future therapies including device therapies as indicated. Subjective Date of service: 04/26/21 Interval history: Patient is comfortable, no acute distress, looks and feels well. No cardiac complaints. On compliance monitor, he has a sinus rhythm at 62. Objective Vital Signs Temp Pulse Resp BP Pulse Ox 04/26/21 10:27 61 170/87 04/26/21 05:59 97.4 F L 61 18 194/116 99 04/26/21 02:24 95 04/25/21 23:26 88 23 95 04/25/21 22:19 97.6 F 75 18 186/110 95 04/25/21 22:17 77 04/25/21 22:16 77 04/25/21 19:34 161/83 78 L 04/25/21 18:49 98.2 F 71 18 177/91 98 04/25/21 16:51 67 11 L 161/83 100 04/25/21 16:41 66 17 161/83 100 04/25/21 16:31 67 17 161/83 100 04/25/21 16:21 68 15 161/83 100 04/25/21 16:01 67 16 161/83 100 04/25/21 15:31 68 17 165/82 100 04/25/21 15:01 65 16 165/82 100 04/25/21 14:31 67 15 152/73 100 04/25/21 14:00 66 16 152/73 96 04/25/21 13:31 66 12 197/103 99 04/25/21 13:00 71 11 L 197/103 94 01/09/22 12:37 76 180/90 04/25/21 12:30 63 15 180/90 100 - Physical Examination Narrative exam: Full physical exam is deferred due to the patient's presentation with acute Covid infection. General: No Apparent Distress Neck: Positive: neck supple, JVD/HJR (Elevated JVP) Extremities: Present: warm - Labs and Meds Cardiac Enzymes 04/26/21 Range/Units 06:07 AST 19 (5-40) units/L Comprehensive Metabolic Panel 04/26/21 Range/Units 06:07 Sodium 135 L (137-145) mmol/L Potassium 5.4 H D (3.6-5.0) mmol/L Chloride 99.6 (98-107) mmol/L Carbon Dioxide 24 (22-30) mmol/L BUN 22 H (9-20) mg/dL Creatinine 1.1 (0.8-1.3) mg/dL Glucose 229 H (75-100) mg/dL Calcium 8.9 (8.4-10.2) mg/dL AST 19 (5-40) units/L ALT 19 (7-56) units/L Alkaline Phosphatase 98 (35-129) units/L Total Protein 7.7 (6.3-8.2) g/dL Albumin 3.4 L (3.9-5) g/dL - Imaging and Cardiology EKG: report reviewed Echo: report reviewed
[2021-04-26] MEDS: HEPARIN 5,000 UNIT/1 ML VIAL SUB-Q SCH ×2 (14:05→21:55)
[2021-04-26] MEDS ORDERED: SODIUM POLYSTYRENE 15 GM/60 ML ORAL LIQD PO ONE (14:30)
--- NOTE | 2021-04-26 14:35 | Progress Note ---
Assessment and Plan Mr. Huerta, a 65 years old male have a known history of EF reduced heart failure, diabetes, obesity hypoventilation syndrome and a history of noncompliance presented with shortness of breath and leg swelling for 1 week. Patient tested positive for COVID-19. Assessment and Plan: -- CoVID 19 infection -Patient tested positive for COVID-19 virus -CXR shows pulmonary congestion -Placed on dexamethasone for total 10 days and remdesivir total 5 days -Infectious disease consulted, -Droplet/contact isolation -Continue SPO2 monitoring -Supplemental oxygen as needed -Pulmonary hygiene -Prone to sleep -Vitamin C, vitamin D, zinc -Anticoagulation per protocol -Lasix IV also ordered for pulmonary edema -- Acute hypoxemic respiratory failure continue supplemental oxygen, pulse oximetry, noninvasive positive pressure ventilation as needed, cont supportive care. Pulmonary toilet. -- Systolic CHF, acute on chronic Strict I/O, monitor urine output every shift, daily weight, afterload reduction, blood pressure control, cont diuretic therapy, monitor urine output every shift. Monitor fluid balance. Echocardiogram ordered -- Hypertensive urgency, malignant Monitor blood pressure every shift, continue medical management, IV hydralazine every 6 hours as needed for systolic blood pressure greater than 155 mmHg --hypokalemia, repleted --Hyperkalemia, follow BMP. order one dose of kayexalate --Morbid Obesity Balanced diet, increase physical activity discharge and pulmonary follow-up for sleep study as outpatient when clinically stable. --DM type 2, consistent carb diet, SSI -- Pulmonary hypertension continue medical management, outpatient pulmonary follow-up. -- DVT prophylaxis SCD to bilateral lower extremities while in bed, patient is ambulatory --Full code status Daily clinical course: 04/24/21; patient is positive for COVID-19, initiate COVID-19 protocol, started on dexamethasone and remdesivir. Consult ID, continue diuresis, follow 2D echocardiogram. 04/25/21: Echo showed EF 15-20%, cont iv lasix, follow ID recommendation. cont dexamethasone and remdesivir. follow inflammatory markers. patient on supplemental O2. Continue to adjust BP medications 04/26/21: cont iv diuresis, remdesivir day 3 today. Pending ID consult. Potassium 5.4 today -follow BMP, continue diuresis. follow inflammatory markers Subjective Date of service: 04/26/21 Interval history: Patient seen and examined. Medical records and medication list reviewed. No acute event overnight noted by the RN. Patient on supplemental O2, tolerating diet, BP remains elevated Discussed plan of care at bedside with patient. Objective - Exam Narrative Exam: Limited physical exam due to COVID-19 pandemic to minimize transmission of the disease and to preserve PPE. Vital reviewed and stable. GENERAL: well-developed obese -[place] male lying on bed appeared to be in no discomfort. HEENT: Normocephalic. Atraumatic. NECK: Supple. CHEST/LUNGS: breathing with supplemental O2 HEART/CARDIOVASCULAR: Heart rate stable on telemetry ABDOMEN: Visibly not distended SKIN: There is no rash NEURO: No focal motor deficit. Follows command. MUSCULOSKELETAL: No joint effusion EXTRIMITY: No swelling, no cyanosis or clubbing. PSYCH: Cooperative. - Constitutional Vitals: Vital Signs - 12hr 04/26/21 04/26/21 04/26/21 02:24 05:59 10:27 Temperature 97.4 F L Pulse Rate 61 61 Respiratory 18 Rate Blood Pressure 194/116 170/87 O2 Sat by Pulse 95 99 Oximetry 04/26/21 14:05 Temperature Pulse Rate 64 Respiratory Rate Blood Pressure 173/92 O2 Sat by Pulse Oximetry - Labs CBC & Chem 7: 04/24/21 03:28 04/26/21 06:07 Labs: Abnormal lab results 04/26/21 Range/Units 06:07 Sodium 135 L (137-145) mmol/L Potassium 5.4 H D (3.6-5.0) mmol/L BUN 22 H (9-20) mg/dL Glucose 229 H (75-100) mg/dL Albumin 3.4 L (3.9-5) g/dL HEART Score - HEART Score Troponin: Troponin T < 0.010 ng/mL (0.00-0.029) 04/23/21 08:01
--- NOTE | 2021-04-26 17:11 | Consultation ---
History of Present Illness - Reason for Consult Consult date: 04/26/21 COVID-19 Requesting physician: MICHAEL COOPER - History of Present Illness The patient is a 65-year-old male with CVA, CHF, cardiomyopathy, obesity, obesity hypoventilation syndrome, diabetes was admitted with worsening shortness of breath. He also ran out of his home medications. He had gained about 15 pounds of weight over a week. Upon evaluation in the ER, noted to be hypoxic. He tested positive for COVID-19, hence infectious diseases was consulted. He was started on diuretics, steroids, Remdesivir. Labs revealed WBC 9.0, platelets 291, CRP 2.2. He has remained afebrile. Doing well on nasal cannula at 3 L/min. Review of Systems: reviewed in the chart, unable to obtain, minimize risk of transmission Past History Past Medical History: arthritis, diabetes, heart failure, hypertension, stroke Past Surgical History: total hip replacement, total knee replacement Social history: , lives with family. denies: smoking, alcohol abuse, pre scription drug abuse Family history: diabetes, hypertension Medications and Allergies Allergies Allergy/AdvReac Type Severity Reaction Status Date / Time No Known Allergies Allergy Verified 04/23/21 06:03 Home Medications Medication Instructions Recorded Confirmed Last Taken Type Aspirin [Adult Aspirin] 81 mg PO DAILY 09/16/18 04/23/21 1 Week Ago History ~04/16/21 AtorvaSTATin [Lipitor] 40 mg PO QHS 09/16/18 04/23/21 1 Week Ago History ~04/16/21 Furosemide [Lasix TAB] 40 mg PO QDAY 09/16/18 04/23/21 1 Week Ago History ~04/16/21 Gabapentin [Neurontin] 600 mg PO BID 09/16/18 04/23/21 1 Week Ago History ~04/16/21 Isosorbide Mononitrate 60 mg PO DAILY 09/16/18 04/23/21 1 Week Ago History ~04/16/21 carvediloL [Coreg] 25 mg PO BID 09/16/18 04/23/21 1 Week Ago History ~04/16/21 lisinopriL [Zestril TAB] 40 mg PO BID 09/16/18 04/23/21 1 Week Ago History ~04/16/21 Isosorb Dinit/Hydralazine [Bidil 1 each PO Q8HR tablet 09/20/18 04/23/21 1 Week Ago Rx 20/37.5MG] ~04/16/21 metOLazone [Zaroxolyn] 5 mg PO QDAY tablet 09/20/18 04/23/21 1 Week Ago Rx ~04/16/21 Sildenafil Citrate [Viagra] 50 mg PO PRN PRN 04/23/21 04/23/21 Unknown History glipiZIDE [Glucotrol] 5 mg PO BIDWM 04/23/21 04/23/21 1 Week Ago History ~04/16/21 Active Meds: Active Medications Acetaminophen (Acetaminophen 325 Mg Tab) 650 mg PO Q4H PRN PRN Reason: Pain MILD(1-3)/Fever >100.5/HINDS Ascorbic Acid (Ascorbic Acid 500 Mg Tab) 1,000 mg PO BID [facility] Aspirin (Aspirin Ec 81 Mg Tab) 81 mg PO DAILY [facility] Last Admin: 04/26/21 10:25 Dose: 81 mg Carvedilol (Carvedilol 12.5 Mg Tab) 12.5 mg PO BID [facility] Last Admin: 04/26/21 10:27 Dose: 12.5 mg Cholecalciferol (Cholecalciferol (Vit D3) 5,000 Unit Tab) 5,000 unit PO DAILY [facility] Dexamethasone (Dexamethasone 2 Mg Tab) 6 mg PO Q24HR [facility] Stop: 05/03/21 10:01 Last Admin: 04/26/21 10:25 Dose: 6 mg Furosemide (Furosemide 20 Mg/2 Ml Inj) 60 mg IV 0600,1800 [facility] Last Admin: 04/26/21 05:11 Dose: 60 mg Heparin Sodium (Porcine) (Heparin 5,000 Unit/1 Ml Vial) 5,000 unit SUB-Q Q8HR [facility] Last Admin: 04/26/21 14:05 Dose: 5,000 unit Hydralazine HCl (Hydralazine 20 Mg/1 Ml Inj) 10 mg IV Q6HR PRN PRN Reason: Hypertension Last Admin: 04/24/21 15:47 Dose: 10 mg Hydralazine HCl (Hydralazine 25 Mg Tab) 50 mg PO Q8HR [facility] Last Admin: 04/26/21 14:05 Dose: 50 mg Hydromorphone HCl (Hydromorphone 1 Mg/1 Ml Inj) 0.5 mg IV Q23H PRN PRN Reason: Pain , Severe (7-10) REMDESIVIR 100 mg/ Sodium (Chloride) 250 mls @ 500 mls/hr IV Q24HR@2100 [facility] Stop: 04/28/21 21:29 Last Admin: 04/25/21 22:17 Dose: 500 mls/hr Insulin Human Regular (Insulin Regular, Human 100 Units/1 Ml) 0 units SUB-Q ACHS [facility]; Protocol Isosorbide Mononitrate (Isosorbide Mononitrate Er 60 Mg Tab) 60 mg PO QDAY [facility] Last Admin: 04/26/21 10:27 Dose: 60 mg Ondansetron HCl (Ondansetron 4 Mg/2 Ml Inj) 4 mg IV Q8H PRN PRN Reason: Nausea And Vomiting Oxycodone/Acetaminophen (Oxycodone /Acetaminophen 5-325mg Tab) 1 tab PO Q16H PRN PRN Reason: Pain, Moderate (4-6) Sodium Chloride (Sodium Chloride 0.9% 10 Ml Flush Syringe) 10 ml IV BID [facility] Last Admin: 04/26/21 10:26 Dose: 10 ml Sodium Chloride (Sodium Chloride 0.9% 10 Ml Flush Syringe) 10 ml IV PRN PRN PRN Reason: LINE FLUSH Sodium Chloride (Sodium Chloride 0.9% 50 Ml Ivpb) 50 ml IV Q24HR@2100 [facility] Stop: 04/28/21 21:01 Last Admin: 04/25/21 22:17 Dose: 50 ml Zinc Sulfate (Zinc Sulfate 220 Mg Cap) 220 mg PO BID [facility] Physical Examination - Physical Exam Narrative exam: Physical Exam (reviewed in chart to minimize risk of transmission) Constitutional: deferred Head, Ears, Nose: deferred Eyes: deferred Neck: deferred Oral: deferred Cardiovascular: deferred Respiratory: deferred GI: deferred Musculoskeletal: deferred Skin: deferred Hem/Lymphatic: deferred Psych: deferred Neurological: deferred - Constitutional Vitals: Vital Signs Temp Pulse Resp BP Pulse Ox 98.0 F 64 20 173/92 100 04/26/21 12:00 04/26/21 14:05 04/26/21 12:00 04/26/21 14:05 04/26/21 12:00 Temperature -Last 24 Hours Temperature 98.0 F Temperature 97.4 F Temperature 97.6 F Temperature 98.2 F Results - Labs CBC & Chem 7: 04/24/21 03:28 04/26/21 06:07 Labs: Abnormal lab results 04/26/21 04/26/21 04/26/21 Range/Units 06:07 13:19 17:04 Sodium 135 L (137-145) mmol/L Potassium 5.4 H D (3.6-5.0) mmol/L BUN 22 H (9-20) mg/dL Glucose 229 H (75-100) mg/dL POC Glucose 337 H (70-105) mg/dL C-Reactive Protein 2.20 H (0.00-1.30) mg/dL Albumin 3.4 L (3.9-5) g/dL - Imaging and Cardiology Chest x-ray: report reviewed, image reviewed (hilar prominence, fluid overload and possible pneumonia) Assessment and Plan Cultures: SARS CoV2 PCR: Positive A/P: 65-year-old male with CVA, CHF, cardiomyopathy, obesity, obesity hypoventilation syndrome, diabetes was admitted with worsening shortness of breath: #Bilateral pneumonia: Secondary to COVID-19 #Acute hypoxic respiratory failure: Secondary to COVID-19, CHF #Acute on chronic CHF with cardiomyopathy #Morbid obesity #Diabetes mellitus type 2 Recs: -Continue IV/PO Dexamethasone x 10 days -Continue IV remdesivir x 5 days -Continue diuretics per primary -prophylactic anticoagulation based on d-dimer per hospital protocol -trend d-dimer, CRP every 2-3 days Morgan Sanchez MD, FACP, [facility] O: [phone] F: [phone]
[2021-04-26] MEDS ORDERED: SODIUM POLYSTYRENE 15 GM/60 ML ORAL LIQD ONE (17:21)
[2021-04-26] MEDS: ZINC SULFATE 220 MG CAP PO SCH ×2 (17:53→21:53)
[2021-04-26] MEDS: ASCORBIC ACID 500 MG TAB PO SCH ×2 (17:53→21:51)
[2021-04-26] MEDS: CHOLECALCIFEROL (VIT D3) 5,000 UNIT TAB PO SCH (17:54)
[2021-04-26] MEDS: INSULIN REGULAR, HUMAN 100 UNITS/1 ML SUB-Q SCH ×2 (17:54→21:54)
[2021-04-26] MEDS: REMDESIVIR 100 MG in SODIUM CHLORIDE 0.9% 250ML 250 ML IV SCH (21:50)
[2021-04-26] MEDS: SODIUM CHLORIDE 0.9% 50 ML IVPB IV SCH (21:51)
[2021-04-27] MEDS: FUROSEMIDE 20 MG/2 ML INJ IV SCH ×2 (05:28→18:10)
[2021-04-27] MEDS: hydrALAZINE 25 MG TAB PO SCH ×3 (05:29→21:42)
[2021-04-27] MEDS: HEPARIN 5,000 UNIT/1 ML VIAL SUB-Q SCH ×3 (05:30→21:43)
[2021-04-27] MEDS ORDERED: DEXTROSE 50% IN WATER (25GM) 50 ML SYRINGE IV PRN (08:15)
[2021-04-27] MEDS: ASCORBIC ACID 500 MG TAB PO SCH ×2 (09:55→21:41)
[2021-04-27] MEDS: carvediloL 12.5 MG TAB PO SCH ×2 (09:56→21:42)
[2021-04-27] MEDS: INSULIN NPH/REGULAR 70/30 INJ SUB-Q SCH ×2 (09:56→18:09)
[2021-04-27] MEDS: DEXAMETHASONE 2 MG TAB PO SCH (09:57)
[2021-04-27] MEDS: CHOLECALCIFEROL (VIT D3) 5,000 UNIT TAB PO SCH (09:57)
[2021-04-27] MEDS: LOSARTAN 50 MG TAB PO SCH (09:57)
[2021-04-27] MEDS: ASPIRIN EC 81 MG TAB PO SCH (09:57)
[2021-04-27] MEDS: ZINC SULFATE 220 MG CAP PO SCH ×2 (10:00→21:43)
[2021-04-27] MEDS: INSULIN REGULAR, HUMAN 100 UNITS/1 ML SUB-Q SCH ×4 (10:01→23:09)
[2021-04-27] MEDS ORDERED: FUROSEMIDE 20 MG/2 ML INJ IV ONE (10:30)
[2021-04-27 11:29] LABS: Alanine Aminotransferase 20 units/L (7-56); Albumin 3.5 g/dL (3.9-5); BUN/Creatinine Ratio 22; Blood Urea Nitrogen 24 mg/dL (9-20); Calcium 8.4 mg/dL (8.4-10.2); Hemolysis Index 4
--- NOTE | 2021-04-27 13:42 | Progress Note ---
Assessment and Plan - Patient Problems (1) CHF exacerbation Current Visit: Yes Status: Acute Qualifiers: Heart failure type: systolic Qualified Code(s): I50.23 - Acute on chronic systolic (congestive) heart failure Plan to address problem: Patient presented with acute Covid infection, and acute exacerbation of chronic systolic heart failure. He has a nonischemic cardiomyopathy, cardiac catheterization in September 2018 reported biventricular heart failure with left ventricular ejection fraction 20%, severe pulmonary hypertension with pulmonary artery systolic pressure of 85, and angiographically normal coronary arteries. His current heart failure exacerbation is likely due to his noncompliance with recommended medical therapy. We will continue guideline directed medical therapy and continue conservative cardiac medical management. Outpatient follow-up with his primary allied health professional is recommended for future therapies including device therapies as indicated. Subjective Date of service: 04/27/21 Interval history: Patient's COVID at 19 test came back positive. No cardiac events reported. Objective Vital Signs Temp Pulse Resp BP BP Pulse Ox 04/27/21 09:57 64 165/76 04/27/21 09:56 64 165/76 04/27/21 05:29 64 173/84 04/27/21 02:00 18 100 04/27/21 00:58 100 04/26/21 21:52 68 167/86 04/26/21 21:51 68 167/86 04/26/21 18:00 98.4 F 68 18 159/79 97 04/26/21 14:05 64 173/92 04/26/21 14:00 96 - Physical Examination General: No Apparent Distress Neck: Positive: neck supple, JVD/HJR (Elevated JVP) Cardiac: Positive: Reg Rate and Rhythm Lungs: Positive: Decreased Breath Sounds Abdomen: Positive: Soft (Obese) Extremities: Present: warm - Labs and Meds Cardiac Enzymes 04/27/21 Range/Units 10:48 AST 9 (5-40) units/L Comprehensive Metabolic Panel 04/27/21 Range/Units 10:48 Sodium 136 L (137-145) mmol/L Potassium 4.2 D (3.6-5.0) mmol/L Chloride 99.1 (98-107) mmol/L Carbon Dioxide 26 (22-30) mmol/L BUN 24 H (9-20) mg/dL Creatinine 1.1 (0.8-1.3) mg/dL Glucose 288 H (75-100) mg/dL Calcium 8.4 (8.4-10.2) mg/dL AST 9 (5-40) units/L ALT 20 (7-56) units/L Alkaline Phosphatase 104 (35-129) units/L Total Protein 7.2 (6.3-8.2) g/dL Albumin 3.5 L (3.9-5) g/dL - Imaging and Cardiology EKG: report reviewed Echo: report reviewed
[2021-04-27] MEDS: guaiFENesin 200 MG TAB PO SCH ×2 (14:04→18:11)
--- NOTE | 2021-04-27 14:42 | Progress Note ---
Assessment and Plan Cultures: SARS CoV2 PCR: Positive A/P: 65-year-old male with CVA, CHF, cardiomyopathy, obesity, obesity hypoventilation syndrome, diabetes was admitted with worsening shortness of breath: #Bilateral pneumonia: Secondary to COVID-19 #Acute hypoxic respiratory failure: Secondary to COVID-19, CHF #Acute on chronic CHF with cardiomyopathy #Morbid obesity #Diabetes mellitus type 2 Recs: -Continue IV/PO Dexamethasone x 10 days -Continue IV remdesivir x 5 days -Continue diuretics per primary -prophylactic anticoagulation based on d-dimer per hospital protocol -CRP improved Morgan Sanchez MD, FACP, [facility] O: [phone] F: [phone] Subjective Date of service: 04/27/21 Interval history: No fever. Remains on oxygen at 3 L/min by NC. Objective - Exam Narrative Exam: Physical Exam (reviewed in chart to minimize risk of transmission) Constitutional: deferred Head, Ears, Nose: deferred Eyes: deferred Neck: deferred Oral: deferred Cardiovascular: deferred Respiratory: deferred GI: deferred Musculoskeletal: deferred Skin: deferred Hem/Lymphatic: deferred Psych: deferred Neurological: deferred - Constitutional Vitals: Vital Signs Temp Pulse Resp BP Pulse Ox 97.6 F 61 18 161/81 100 04/27/21 11:20 04/27/21 14:04 04/27/21 11:20 04/27/21 14:04 04/27/21 11:20 Temperature -Last 24 Hours Temperature 97.6 F Temperature 98.3 F Temperature 97.8 F Temperature 98.4 F - Labs CBC & Chem 7: 04/24/21 03:28 04/27/21 10:48 Labs: Abnormal lab results 04/26/21 04/26/21 04/26/21 Range/Units 13:19 17:04 20:15 D-Dimer (0-234) ng/mlDDU Sodium (137-145) mmol/L BUN (9-20) mg/dL Glucose (75-100) mg/dL POC Glucose 337 H 387 H (70-105) mg/dL Hemoglobin A1c (4-6) % C-Reactive Protein 2.20 H (0.00-1.30) mg/dL Albumin (3.9-5) g/dL 04/27/21 04/27/21 04/27/21 Range/Units 07:39 10:48 10:48 D-Dimer 386.73 H (0-234) ng/mlDDU Sodium 136 L (137-145) mmol/L BUN 24 H (9-20) mg/dL Glucose 288 H (75-100) mg/dL POC Glucose 202 H (70-105) mg/dL Hemoglobin A1c (4-6) % C-Reactive Protein (0.00-1.30) mg/dL Albumin 3.5 L (3.9-5) g/dL 04/27/21 04/27/21 Range/Units 10:48 11:17 D-Dimer (0-234) ng/mlDDU Sodium (137-145) mmol/L BUN (9-20) mg/dL Glucose (75-100) mg/dL POC Glucose 240 H (70-105) mg/dL Hemoglobin A1c 6.8 H (4-6) % C-Reactive Protein (0.00-1.30) mg/dL Albumin (3.9-5) g/dL
--- NOTE | 2021-04-27 17:15 | Progress Note ---
Assessment and Plan Assessment and plan: #CoVID 19 infection pneumonia #Acute hypoxic respiratory failure - baseline oxygen requirements: None - supplemental oxygen: Currently on 3 L nasal cannula -Continue remdesivir x5 days and dexamethasone x10 days. Infectious disease consulted; appreciate recs. - Continue protocol: continue pulse oximetry, wean oxygen as tolerated, ordered incentive spirometry and educated patient on how to use it and its importance. Continue droplet and contact isolation. Encouraging patient to prone and ambulate. -Pulmonology consulted; appreciate recs. IV Lasix 20 mg as needed for volume control. - continue to monitor #Acute on chronic (systolic/diastolic) heart failure - Continue CHF exacerbation protocol: Telemetry, Strict I/O, monitor urine output every shift, daily weights, afterload reduction, low-sodium diet, and fluid restriction of approximately 1.5 mL/day - Supplemental oxygen: 3 L nasal cannula - ProBNP on admission: 853 - Cardiology consulted; appreciate recs - TTE (date) reveals severe global hypokinesis with EF 15-20% - Continue to monitor #Hypertensive urgencyresolved #CAD Patient was not compliant with home antihypertensives. Continue Coreg 12.5 mg twice daily, losartan 50 mg daily Imdur 60 mg daily, ASA 81 mg daily Counseled patient about the importance of medication compliance. #Insulin dependent type II diabetes mellitus - hemoglobin A1c: Pending - home regimen: NPH 70/30 10 units twice daily - current regimen: - blood glucose goal 140-180 while inpatient - continue to monitor #Pulmonary hypertension continue medical management, outpatient pulmonary follow-up. #Hypokalemiaresolved Repleted. Continue to monitor. #Hyperkalemiaresolved #Obesity #Weight loss counseling #Exercise counseling - BMI 41 - Counseled patient on the importance of weight loss, incorporating exercise, and dietary changes (lean meats, fresh fruits and vegetables, and water intake). Patient expresses understanding. - Time: +15 min #Advanced care planning -Disease education conducted, care plan discussed, diagnoses discussed, p rognosis discussed, and patient acknowledges understanding with care plan -Time: +30 min Disposition Plan: Continue medical management Total Time Spent with Patient (Minutes): 45 minutes History Interval history: No acute events overnight. Hospitalist Physical - Constitutional Vitals: Temp Pulse Resp BP Pulse Ox 97.6 F 61 18 161/81 100 04/27/21 11:20 04/27/21 14:04 04/27/21 11:20 04/27/21 14:04 04/27/21 11:20 General appearance: Present: no acute distress, well-nourished, obese - EENT Eyes: Present: PERRL, EOM intact ENT: hearing intact, clear oral mucosa - Neck Neck: Present: supple, normal ROM - Respiratory Respiratory effort: normal Respiratory: bilateral: diminished (On 3 L nasal cannula) - Cardiovascular Rhythm: regular Heart Sounds: Present: S1 & S2 - Extremities Extremities: no ischemia, pulses intact, pulses symmetrical, No edema, normal temperature, normal color Peripheral Pulses: within normal limits - Abdominal General gastrointestinal: soft, non-tender, non-distended, normal bowel sounds - Integumentary Integumentary: Present: clear, warm, dry - Psychiatric Psychiatric: appropriate mood/affect, cooperative - Neurologic Neurologic: CNII-XII intact - Allied Health Allied health notes reviewed: nursing HEART Score - HEART Score Troponin: Troponin T < 0.010 ng/mL (0.00-0.029) 04/23/21 08:01 Results - Labs CBC & Chem 7: 04/24/21 03:28 04/27/21 10:48 Labs: Laboratory Last Values WBC 7.7 K/mm3 (4.5-11.0) 04/24/21 03:28 RBC 4.47 M/mm3 (3.65-5.03) 04/24/21 03:28 Hgb 11.2 gm/dl (11.8-15.2) L 04/24/21 03:28 Hct 37.0 % (35.5-45.6) 04/24/21 03:28 MCV 83 fl (84-94) L 04/24/21 03:28 MCH 25 pg (28-32) L 04/24/21 03:28 MCHC 30 % (32-34) L 04/24/21 03:28 RDW 22.2 % (13.2-15.2) H 04/24/21 03:28 Plt Count 310 K/mm3 (140-440) 04/24/21 03:28 Lymph % (Auto) 16.5 % (13.4-35.0) 04/24/21 03:28 Griggs % (Auto) 6.5 % (0.0-7.3) 04/24/21 03:28 Eos % (Auto) 2.1 % (0.0-4.3) 04/24/21 03:28 Baso % (Auto) 0.6 % (0.0-1.8) 04/24/21 03:28 Lymph # (Auto) 1.3 K/mm3 (1.2-5.4) 04/24/21 03:28 [place]gs # (Auto) 0.5 K/mm3 (0.0-0.8) 04/24/21 03:28 Eos # (Auto) 0.2 K/mm3 (0.0-0.4) 04/24/21 03:28 Baso # (Auto) 0.0 K/mm3 (0.0-0.1) 04/24/21 03:28 Seg Neutrophils % 74.3 % (40.0-70.0) H 04/24/21 03:28 Seg Neutrophils # 5.7 K/mm3 (1.8-7.7) 04/24/21 03:28 D-Dimer 386.73 ng/mlDDU (0-234) H 04/27/21 10:48 Sodium 136 mmol/L (137-145) L 04/27/21 10:48 Potassium 4.2 mmol/L (3.6-5.0) D 04/27/21 10:48 Chloride 99.1 mmol/L (98-107) 04/27/21 10:48 Carbon Dioxide 26 mmol/L (22-30) 04/27/21 10:48 Anion Gap 15 mmol/L 04/27/21 10:48 BUN 24 mg/dL (9-20) H 04/27/21 10:48 Creatinine 1.1 mg/dL (0.8-1.3) 04/27/21 10:48 Estimated GFR > 60 ml/min 04/27/21 10:48 BUN/Creatinine Ratio 22 % 04/27/21 10:48 Glucose 288 mg/dL (75-100) H 04/27/21 10:48 POC Glucose 240 mg/dL (70-105) H 04/27/21 11:17 Hemoglobin A1c 6.8 % (4-6) H 04/27/21 10:48 Calcium 8.4 mg/dL (8.4-10.2) 04/27/21 10:48 Magnesium 2.00 mg/dL (1.7-2.3) 04/23/21 08:01 Total Bilirubin 0.20 mg/dL (0.1-1.2) 04/27/21 10:48 AST 9 units/L (5-40) 04/27/21 10:48 ALT 20 units/L (7-56) 04/27/21 10:48 Alkaline Phosphatase 104 units/L (35-129) 04/27/21 10:48 Troponin T < 0.010 ng/mL (0.00-0.029) 04/23/21 08:01 C-Reactive Protein 0.90 mg/dL (0.00-1.30) 04/27/21 10:48 NT-Pro-B Natriuret Pep 853.2 pg/mL (0-900) 04/23/21 08:01 Total Protein 7.2 g/dL (6.3-8.2) 04/27/21 10:48 Albumin 3.5 g/dL (3.9-5) L 04/27/21 10:48 Albumin/Globulin Ratio 0.9 % 04/27/21 10:48 TSH 1.520 mlU/mL (0.270-4.200) 04/23/21 13:46 Free T4 1.24 ng/dL (0.76-1.46) 04/23/21 13:46 Coronavirus (PCR) Positive (Negative) A 04/23/21 08:51 Goyal/IV: Voiding Method Urinal Active Medications - Current Medications Current Medications: Generic Name Dose Route Start Last Admin Trade Name Freq PRN Reason Stop Dose Admin Acetaminophen 650 mg 04/23/21 12:26 Acetaminophen 325 Mg Tab PO Q4H PRN Pain MILD(1-3)/Fever >100.5/HINDS Ascorbic Acid 1,000 mg 04/26/21 15:00 04/27/21 09:55 Ascorbic Acid 500 Mg Tab PO 1,000 mg BID [facility] Administration Aspirin 81 mg 04/24/21 13:00 04/27/21 09:57 Aspirin Ec 81 Mg Tab PO 81 mg DAILY [facility] Administration Carvedilol 12.5 mg 04/24/21 13:00 04/27/21 09:56 Carvedilol 12.5 Mg Tab PO 12.5 mg BID [facility] Administration Cholecalciferol 5,000 unit 04/26/21 15:00 04/27/21 09:57 Cholecalciferol (Vit D3) 5,000 Unit Tab PO 5,000 unit DAILY [facility] Administration Dexamethasone 6 mg 04/24/21 14:00 04/27/21 09:57 Dexamethasone 2 Mg Tab PO 05/03/21 10:01 6 mg Q24HR [facility] Administration Dextrose 50 ml 04/27/21 08:15 Dextrose 50% In Water (25gm) 50 Ml Syringe IV Q30MIN PRN Hypoglycemia Protocol Furosemide 60 mg 04/25/21 18:00 04/27/21 05:28 Furosemide 20 Mg/2 Ml Inj IV 60 mg 0600,1800 [facility] Administration Guaifenesin 200 mg 04/27/21 11:00 04/27/21 14:04 Guaifenesin 200 Mg Tab PO 200 mg Q6HR [facility] Administration Heparin Sodium (Porcine) 5,000 unit 04/26/21 15:00 04/27/21 14:06 Heparin 5,000 Unit/1 Ml Vial SUB-Q 5,000 unit Q8HR [facility] Administration Hydralazine HCl 10 mg 04/24/21 00:26 04/24/21 15:47 Hydralazine 20 Mg/1 Ml Inj IV 10 mg Q6HR PRN Administration Hypertension Hydralazine HCl 50 mg 04/26/21 14:30 04/27/21 14:04 Hydralazine 25 Mg Tab PO 50 mg Q8HR [facility] Administration Hydromorphone HCl 0.5 mg 04/23/21 12:26 Hydromorphone 1 Mg/1 Ml Inj IV Q23H PRN Pain , Severe (7-10) REMDESIVIR 100 mg/ Sodium 250 mls @ 500 mls/hr 04/25/21 21:00 04/26/21 21:50 Chloride IV 04/28/21 21:29 500 mls/hr Q24HR@2100 [facility] Administration Insulin Human Isoph/Insulin Regular 10 unit 04/27/21 09:00 04/27/21 09:56 Insulin Nph/Regular 70/30 Inj SUB-Q 10 unit BIDDIAB [facility] Administration Insulin Human Regular 0 units 04/26/21 16:30 04/27/21 13:20 Insulin Regular, Human 100 Units/1 Ml SUB-Q 3 units ACHS [facility] Administration Protocol Isosorbide Mononitrate 60 mg 04/23/21 10:00 04/27/21 09:57 Isosorbide Mononitrate Er 60 Mg Tab PO 60 mg QDAY [facility] Administration Losartan Potassium 50 mg 04/27/21 10:00 04/27/21 09:57 Losartan 50 Mg Tab PO 50 mg QDAY [facility] Administration Melatonin 10 mg 04/27/21 21:00 Melatonin 5 Mg Tab PO QHS PRN Sleep Ondansetron HCl 4 mg 04/23/21 12:26 Ondansetron 4 Mg/2 Ml Inj IV Q8H PRN Nausea And Vomiting Oxycodone/Acetaminophen 1 tab 04/23/21 12:26 Oxycodone /Acetaminophen 5-325mg Tab PO Q16H PRN Pain, Moderate (4-6) Sodium Chloride 10 ml 04/23/21 22:00 04/27/21 09:58 Sodium Chloride 0.9% 10 Ml Flush Syringe IV 10 ml BID [facility] Administration Sodium Chloride 10 ml 04/23/21 12:26 Sodium Chloride 0.9% 10 Ml Flush Syringe IV PRN PRN LINE FLUSH Sodium Chloride 50 ml 04/24/21 15:00 04/26/21 21:51 Sodium Chloride 0.9% 50 Ml Ivpb IV 04/28/21 21:01 50 ml Q24HR@2100 [facility] Administration Zinc Sulfate 220 mg 04/26/21 15:00 04/27/21 10:00 Zinc Sulfate 220 Mg Cap PO 220 mg BID [facility] Administration
[2021-04-27] MEDS ORDERED: MELATONIN 5 MG TAB PO PRN (21:00)
[2021-04-27] MEDS: REMDESIVIR 100 MG in SODIUM CHLORIDE 0.9% 250ML 250 ML IV SCH (21:39)
[2021-04-27] MEDS: SODIUM CHLORIDE 0.9% 50 ML IVPB IV SCH (21:39)
[2021-04-28] MEDS: guaiFENesin 200 MG TAB PO SCH ×4 (00:29→17:28)
[2021-04-28] MEDS: hydrALAZINE 25 MG TAB PO SCH ×3 (05:37→22:43)
[2021-04-28] MEDS: HEPARIN 5,000 UNIT/1 ML VIAL SUB-Q SCH ×3 (05:38→22:43)
[2021-04-28] MEDS: FUROSEMIDE 20 MG/2 ML INJ IV SCH (05:38)
[2021-04-28 06:47] LABS: BUN/Creatinine Ratio 26; Blood Urea Nitrogen 29 mg/dL (9-20); Calcium 8.6 mg/dL (8.4-10.2); Hemolysis Index 86
[2021-04-28 07:00] LABS: Basophils % (Auto) 0.1 % (0.0-1.8); Lymphocytes # (Auto) 1.1 K/mm3 (1.2-5.4); Lymphocytes % (Auto) 13.1 % (13.4-35.0); Mean Corpuscular HGB Conc 30 % (32-34); Mean Corpuscular Volume 82 fl (84-94); Monocytes # (Auto) 0.6 K/mm3 (0.0-0.8); Monocytes % (Auto) 6.7 % (0.0-7.3); Platelet Count 312 K/mm3 (140-440); Red Blood Count 4.72 M/mm3 (3.65-5.03)
[2021-04-28 07:13] LABS: Hematocrit 38.8 % (35.5-45.6); Hemoglobin 11.7 gm/dl (11.8-15.2)
[2021-04-28] MEDS: INSULIN REGULAR, HUMAN 100 UNITS/1 ML SUB-Q SCH ×4 (08:49→23:07)
[2021-04-28] MEDS: INSULIN NPH/REGULAR 70/30 INJ SUB-Q SCH ×2 (10:48→17:28)
[2021-04-28] MEDS: carvediloL 12.5 MG TAB PO SCH ×2 (10:48→22:43)
[2021-04-28] MEDS: ASCORBIC ACID 500 MG TAB PO SCH ×2 (10:48→22:43)
[2021-04-28] MEDS: CHOLECALCIFEROL (VIT D3) 5,000 UNIT TAB PO SCH (10:48)
[2021-04-28] MEDS: DEXAMETHASONE 2 MG TAB PO SCH (10:48)
[2021-04-28] MEDS: ASPIRIN EC 81 MG TAB PO SCH (10:48)
[2021-04-28] MEDS: ZINC SULFATE 220 MG CAP PO SCH ×2 (10:48→22:43)
[2021-04-28] MEDS: LOSARTAN 50 MG TAB PO SCH (10:49)
--- NOTE | 2021-04-28 14:20 | Progress Note ---
Assessment and Plan Cultures: SARS CoV2 PCR: Positive A/P: 65-year-old male with CVA, CHF, cardiomyopathy, obesity, obesity hypoventilation syndrome, diabetes was admitted with worsening shortness of breath: #Bilateral pneumonia: Secondary to COVID-19 #Acute hypoxic respiratory failure: Secondary to COVID-19, CHF #Acute on chronic CHF with cardiomyopathy #Morbid obesity #Diabetes mellitus type 2 Recs: -Continue IV/PO Dexamethasone x 10 days -Continue IV remdesivir x 5 days -Continue diuretics per primary -prophylactic anticoagulation based on d-dimer per hospital protocol Morgan Sanchez MD, FACP, [facility] O: [phone] F: [phone] Subjective Date of service: 04/28/21 Interval history: No fever. Remains stable on oxygen by nasal cannula at 3 L/min. Objective - Exam Narrative Exam: Physical Exam (reviewed in chart to minimize risk of transmission) Constitutional: deferred Head, Ears, Nose: deferred Eyes: deferred Neck: deferred Oral: deferred Cardiovascular: deferred Respiratory: deferred GI: deferred Musculoskeletal: deferred Skin: deferred Hem/Lymphatic: deferred Psych: deferred Neurological: deferred - Constitutional Vitals: Vital Signs Temp Pulse Resp BP Pulse Ox 98.2 F 63 22 139/70 97 04/28/21 12:21 04/28/21 12:21 04/28/21 12:21 04/28/21 12:21 04/28/21 12:21 Temperature -Last 24 Hours Temperature 98.2 F Temperature 97.5 F Temperature 98.1 F - Labs CBC & Chem 7: 04/28/21 05:57 04/28/21 05:57 Labs: Abnormal lab results 04/27/21 04/27/21 04/28/21 Range/Units 17:24 21:35 05:57 Hgb 11.7 L (11.8-15.2) gm/dl MCV 82 L (84-94) fl MCH 25 L (28-32) pg MCHC 30 L (32-34) % RDW 22.0 H (13.2-15.2) % Lymph % (Auto) 13.1 L (13.4-35.0) % Lymph # (Auto) 1.1 L (1.2-5.4) K/mm3 Seg Neutrophils % 80.1 H (40.0-70.0) % BUN (9-20) mg/dL Glucose (75-100) mg/dL POC Glucose 229 H 274 H (70-105) mg/dL 04/28/21 04/28/21 04/28/21 Range/Units 05:57 08:24 11:29 Hgb (11.8-15.2) gm/dl MCV (84-94) fl MCH (28-32) pg MCHC (32-34) % RDW (13.2-15.2) % Lymph % (Auto) (13.4-35.0) % Lymph # (Auto) (1.2-5.4) K/mm3 Seg Neutrophils % (40.0-70.0) % BUN 29 H (9-20) mg/dL Glucose 198 H (75-100) mg/dL POC Glucose 142 H 195 H (70-105) mg/dL
--- NOTE | 2021-04-28 14:28 | Progress Note ---
Assessment and Plan - Patient Problems (1) CHF exacerbation Current Visit: Yes Status: Acute Qualifiers: Heart failure type: systolic Qualified Code(s): I50.23 - Acute on chronic systolic (congestive) heart failure Plan to address problem: Patient presented with acute Covid infection, and acute exacerbation of chronic systolic heart failure. He has a nonischemic cardiomyopathy, cardiac catheterization in September 2018 reported biventricular heart failure with left ventricular ejection fraction 20%, severe pulmonary hypertension with pulmonary artery systolic pressure of 85, and angiographically normal coronary arteries. His current heart failure exacerbation is likely due to his noncompliance with recommended medical therapy. We will continue guideline directed medical therapy and continue conservative cardiac medical management. Outpatient follow-up with his primary tattoo artist is recommended for future therapies including device therapies as indicated. We will follow intermittently. Subjective Date of service: 04/28/21 Interval history: Patient has no new cardiac complaints, no cardiac events reported. On environmental monitoring technician he has a sinus rhythm at 62. Objective Vital Signs Temp Pulse Resp BP Pulse Ox 04/28/21 12:21 98.2 F 63 22 139/70 97 04/28/21 08:40 99 04/28/21 05:37 97.5 F L 58 L 18 168/82 100 04/28/21 02:00 19 99 04/27/21 21:42 62 146/77 04/27/21 21:41 98.1 F 18 146/77 04/27/21 17:26 62 20 160/84 99 - Physical Examination General: No Apparent Distress Neck: Positive: neck supple, JVD/HJR (Elevated JVP) Cardiac: Positive: Reg Rate and Rhythm Lungs: Positive: Decreased Breath Sounds Abdomen: Positive: Soft (Obese) Extremities: Present: warm - Labs and Meds CBC 04/28/21 Range/Units 05:57 WBC 8.8 (4.5-11.0) K/mm3 RBC 4.72 (3.65-5.03) M/mm3 Hgb 11.7 L (11.8-15.2) gm/dl Hct 38.8 (35.5-45.6) % Plt Count 312 (140-440) K/mm3 Lymph # (Auto) 1.1 L (1.2-5.4) K/mm3 Izard # (Auto) 0.6 (0.0-0.8) K/mm3 Eos # (Auto) 0.0 (0.0-0.4) K/mm3 Baso # (Auto) 0.0 (0.0-0.1) K/mm3 Comprehensive Metabolic Panel 04/28/21 Range/Units 05:57 Sodium 139 (137-145) mmol/L Potassium 4.5 (3.6-5.0) mmol/L Chloride 101.7 (98-107) mmol/L Carbon Dioxide 25 (22-30) mmol/L BUN 29 H (9-20) mg/dL Creatinine 1.1 (0.8-1.3) mg/dL Glucose 198 H (75-100) mg/dL Calcium 8.6 (8.4-10.2) mg/dL - Imaging and Cardiology EKG: report reviewed Echo: report reviewed
--- NOTE | 2021-04-28 14:36 | Progress Note ---
Assessment and Plan Assessment and plan: #CoVID 19 infection pneumonia #Acute hypoxic respiratory failure - baseline oxygen requirements: None - supplemental oxygen: Currently on 3 L nasal cannula -Continue remdesivir x5 days and dexamethasone x10 days. Infectious disease consulted; appreciate recs. - Continue protocol: continue pulse oximetry, wean oxygen as tolerated, ordered incentive spirometry and educated patient on how to use it and its importance. Continue droplet and contact isolation. Encouraging patient to prone and ambulate. -Pulmonology consulted; appreciate recs. IV Lasix 20 mg as needed for volume control. - continue to monitor #Acute on chronic (systolic/diastolic) heart failure - Continue CHF exacerbation protocol: Telemetry, Strict I/O, monitor urine output every shift, daily weights, afterload reduction, low-sodium diet, and fluid restriction of approximately 1.5 mL/day Transition from IV Lasix 40 mg twice daily to p.o. 40 mg twice daily - Supplemental oxygen: 3 L nasal cannula - ProBNP on admission: 853 - Cardiology consulted; appreciate recs - TTE reveals severe global hypokinesis with EF 15-20% - Continue to monitor #Hypertensive urgencyresolved #CAD Patient was not compliant with home antihypertensives. Continue Coreg 12.5 mg twice daily, losartan 50 mg daily Imdur 60 mg daily, ASA 81 mg daily Counseled patient about the importance of medication compliance. #Insulin dependent type II diabetes mellitus - hemoglobin A1c: Pending - home regimen: NPH 70/30 10 units twice daily - current regimen: - blood glucose goal 140-180 while inpatient - continue to monitor #Pulmonary hypertension continue medical management, outpatient pulmonary follow-up. #Hypokalemiaresolved Repleted. Continue to monitor. #Hyperkalemiaresolved #Obesity #Weight loss counseling #Exercise counseling - BMI 41 - Counseled patient on the importance of weight loss, incorporating exercise, and dietary changes (lean meats, fresh fruits and vegetables, and water intake). Patient expresses understanding. - Time: +15 min #Advanced care planning -Disease education conducted, care plan discussed, diagnoses discussed, prognosis discussed, and patient acknowledges understanding with care plan -Time: +30 min Disposition Plan: continue medical management Total Time Spent with Patient (Minutes): 45 minutes History Interval history: No acute events over night. The patient denies fevers, chills, nausea, vomiting, abdominal pain, chest pain/pressure, shortness of breath, urinary symptoms, weakness, or confusion. Hospitalist Physical - Constitutional Vitals: Temp Pulse Resp BP Pulse Ox 98.2 F 63 22 139/70 97 04/28/21 12:21 04/28/21 12:21 04/28/21 12:21 04/28/21 12:21 04/28/21 12:21 General appearance: Present: no acute distress, well-nourished, obese - EENT Eyes: Present: PERRL, EOM intact ENT: hearing intact, clear oral mucosa - Neck Neck: Present: supple, normal ROM - Respiratory Respiratory effort: normal Respiratory: bilateral: diminished (On 2 L nasal cannula) - Cardiovascular Rhythm: regular Heart Sounds: Present: S1 & S2 - Extremities Extremities: no ischemia, pulses intact, pulses symmetrical, No edema, normal temperature, normal color Peripheral Pulses: within normal limits - Abdominal General gastrointestinal: soft, non-tender, non-distended, normal bowel sounds - Integumentary Integumentary: Present: clear, warm, dry - Psychiatric Psychiatric: appropriate mood/affect, intact judgment & insight, memory intact, cooperative - Neurologic Neurologic: CNII-XII intact, moves all extremities - Allied Health Allied health notes reviewed: nursing HEART Score - HEART Score Troponin: Troponin T < 0.010 ng/mL (0.00-0.029) 04/23/21 08:01 Results - Labs CBC & Chem 7: 04/28/21 05:57 04/28/21 05:57 Labs: Laboratory Last Values WBC 8.8 K/mm3 (4.5-11.0) 04/28/21 05:57 RBC 4.72 M/mm3 (3.65-5.03) 04/28/21 05:57 Hgb 11.7 gm/dl (11.8-15.2) L 04/28/21 05:57 Hct 38.8 % (35.5-45.6) 04/28/21 05:57 MCV 82 fl (84-94) L 04/28/21 05:57 MCH 25 pg (28-32) L 04/28/21 05:57 MCHC 30 % (32-34) L 04/28/21 05:57 RDW 22.0 % (13.2-15.2) H 04/28/21 05:57 Plt Count 312 K/mm3 (140-440) 04/28/21 05:57 Lymph % (Auto) 13.1 % (13.4-35.0) L 04/28/21 05:57 Todd % (Auto) 6.7 % (0.0-7.3) 04/28/21 05:57 Eos % (Auto) 0.0 % (0.0-4.3) 04/28/21 05:57 Baso % (Auto) 0.1 % (0.0-1.8) 04/28/21 05:57 Lymph # (Auto) 1.1 K/mm3 (1.2-5.4) L 04/28/21 05:57 Todd # (Auto) 0.6 K/mm3 (0.0-0.8) 04/28/21 05:57 Eos # (Auto) 0.0 K/mm3 (0.0-0.4) 04/28/21 05:57 Baso # (Auto) 0.0 K/mm3 (0.0-0.1) 04/28/21 05:57 Seg Neutrophils % 80.1 % (40.0-70.0) H 04/28/21 05:57 Seg Neutrophils # 7.0 K/mm3 (1.8-7.7) 04/28/21 05:57 D-Dimer 386.73 ng/mlDDU (0-234) H 04/27/21 10:48 Sodium 139 mmol/L (137-145) 04/28/21 05:57 Potassium 4.5 mmol/L (3.6-5.0) 04/28/21 05:57 Chloride 101.7 mmol/L (98-107) 04/28/21 05:57 Carbon Dioxide 25 mmol/L (22-30) 04/28/21 05:57 Anion Gap 17 mmol/L 04/28/21 05:57 BUN 29 mg/dL (9-20) H 04/28/21 05:57 Creatinine 1.1 mg/dL (0.8-1.3) 04/28/21 05:57 Estimated GFR > 60 ml/min 04/28/21 05:57 BUN/Creatinine Ratio 26 % 04/28/21 05:57 Glucose 198 mg/dL (75-100) H 04/28/21 05:57 POC Glucose 195 mg/dL (70-105) H 04/28/21 11:29 Hemoglobin A1c 6.8 % (4-6) H 04/27/21 10:48 Calcium 8.6 mg/dL (8.4-10.2) 04/28/21 05:57 Magnesium 2.00 mg/dL (1.7-2.3) 04/23/21 08:01 Total Bilirubin 0.20 mg/dL (0.1-1.2) 04/27/21 10:48 AST 9 units/L (5-40) 04/27/21 10:48 ALT 20 units/L (7-56) 04/27/21 10:48 Alkaline Phosphatase 104 units/L (35-129) 04/27/21 10:48 Troponin T < 0.010 ng/mL (0.00-0.029) 04/23/21 08:01 C-Reactive Protein 0.90 mg/dL (0.00-1.30) 04/27/21 10:48 NT-Pro-B Natriuret Pep 853.2 pg/mL (0-900) 04/23/21 08:01 Total Protein 7.2 g/dL (6.3-8.2) 04/27/21 10:48 Albumin 3.5 g/dL (3.9-5) L 04/27/21 10:48 Albumin/Globulin Ratio 0.9 % 04/27/21 10:48 TSH 1.520 mlU/mL (0.270-4.200) 04/23/21 13:46 Free T4 1.24 ng/dL (0.76-1.46) 04/23/21 13:46 Coronavirus (PCR) Positive (Negative) A 04/23/21 08:51 Goyal/IV: Voiding Method Urinal Active Medications - Current Medications Current Medications: Generic Name Dose Route Start Last Admin Trade Name Freq PRN Reason Stop Dose Admin Acetaminophen 650 mg 04/23/21 12:26 Acetaminophen 325 Mg Tab PO Q4H PRN Pain MILD(1-3)/Fever >100.5/HINDS Ascorbic Acid 1,000 mg 04/26/21 15:00 04/28/21 10:48 Ascorbic Acid 500 Mg Tab PO 1,000 mg BID PATRICE Administration Aspirin 81 mg 04/24/21 13:00 04/28/21 10:48 Aspirin Ec 81 Mg Tab PO 81 mg DAILY PATRICE Administration Carvedilol 12.5 mg 04/24/21 13:00 04/28/21 10:48 Carvedilol 12.5 Mg Tab PO 12.5 mg BID PATRICE Administration Cholecalciferol 5,000 unit 04/26/21 15:00 04/28/21 10:48 Cholecalciferol (Vit D3) 5,000 Unit Tab PO 5,000 unit DAILY PATRICE Administration Dexamethasone 6 mg 04/24/21 14:00 04/28/21 10:48 Dexamethasone 2 Mg Tab PO 05/03/21 10:01 6 mg Q24HR PATRICE Administration Dextrose 50 ml 04/27/21 08:15 Dextrose 50% In Water (25gm) 50 Ml Syringe IV Q30MIN PRN Hypoglycemia Protocol Furosemide 60 mg 04/25/21 18:00 04/28/21 05:38 Furosemide 20 Mg/2 Ml Inj IV 60 mg 0600,1800 PATRICE Administration Guaifenesin 200 mg 04/27/21 11:00 04/28/21 13:35 Guaifenesin 200 Mg Tab PO 200 mg Q6HR PATRICE Administration Heparin Sodium (Porcine) 5,000 unit 04/26/21 15:00 04/28/21 13:35 Heparin 5,000 Unit/1 Ml Vial SUB-Q 5,000 unit Q8HR PATRICE Administration Hydralazine HCl 10 mg 04/24/21 00:26 04/24/21 15:47 Hydralazine 20 Mg/1 Ml Inj IV 10 mg Q6HR PRN Administration Hypertension Hydralazine HCl 50 mg 04/26/21 14:30 04/28/21 13:35 Hydralazine 25 Mg Tab PO 50 mg Q8HR PATRICE Administration Hydromorphone HCl 0.5 mg 04/23/21 12:26 Hydromorphone 1 Mg/1 Ml Inj IV Q23H PRN Pain , Severe (7-10) REMDESIVIR 100 mg/ Sodium 250 mls @ 500 mls/hr 04/25/21 21:00 04/27/21 21:39 Chloride IV 04/28/21 21:29 500 mls/hr Q24HR@2100 PATRICE Administration Insulin Human Isoph/Insulin Regular 10 unit 04/27/21 09:00 04/28/21 10:48 Insulin Nph/Regular 70/30 Inj SUB-Q 10 unit BIDDIAB PATRICE Administration Insulin Human Regular 0 units 04/26/21 16:30 04/28/21 13:35 Insulin Regular, Human 100 Units/1 Ml SUB-Q 2 units ACHS PATRICE Administration Protocol Isosorbide Mononitrate 60 mg 04/23/21 10:00 04/28/21 10:48 Isosorbide Mononitrate Er 60 Mg Tab PO 60 mg QDAY PATRICE Administration Losartan Potassium 50 mg 04/27/21 10:00 04/28/21 10:49 Losartan 50 Mg Tab PO 50 mg QDAY PATRICE Administration Melatonin 10 mg 04/27/21 21:00 04/27/21 21:41 Melatonin 5 Mg Tab PO 10 mg QHS PRN Administration Sleep Ondansetron HCl 4 mg 04/23/21 12:26 Ondansetron 4 Mg/2 Ml Inj IV Q8H PRN Nausea And Vomiting Oxycodone/Acetaminophen 1 tab 04/23/21 12:26 Oxycodone /Acetaminophen 5-325mg Tab PO Q16H PRN Pain, Moderate (4-6) Sodium Chloride 10 ml 04/23/21 22:00 04/28/21 10:49 Sodium Chloride 0.9% 10 Ml Flush Syringe IV 10 ml BID PATRICE Administration Sodium Chloride 10 ml 04/23/21 12:26 Sodium Chloride 0.9% 10 Ml Flush Syringe IV PRN PRN LINE FLUSH Sodium Chloride 50 ml 04/24/21 15:00 04/27/21 21:39 Sodium Chloride 0.9% 50 Ml Ivpb IV 04/28/21 21:01 50 ml Q24HR@2100 PATRICE Administration Zinc Sulfate 220 mg 04/26/21 15:00 04/28/21 10:48 Zinc Sulfate 220 Mg Cap PO 220 mg BID PATRICE Administration
[2021-04-28] MEDS: ACETAMINOPHEN 325 MG TAB PO PRN (15:06)
[2021-04-28] MEDS: FUROSEMIDE 40 MG TAB PO SCH (17:28)
[2021-04-28] MEDS: REMDESIVIR 100 MG in SODIUM CHLORIDE 0.9% 250ML 250 ML IV SCH (23:07)
[2021-04-28] MEDS: SODIUM CHLORIDE 0.9% 50 ML IVPB IV SCH (23:07)
[2021-04-29] MEDS: guaiFENesin 200 MG TAB PO SCH ×5 (01:12→23:08)
[2021-04-29] MEDS: FUROSEMIDE 40 MG TAB PO SCH ×2 (05:12→18:23)
[2021-04-29] MEDS: hydrALAZINE 25 MG TAB PO SCH ×3 (05:13→22:23)
[2021-04-29] MEDS: HEPARIN 5,000 UNIT/1 ML VIAL SUB-Q SCH ×3 (05:13→22:24)
[2021-04-29] MEDS: DEXAMETHASONE 2 MG TAB PO SCH (09:16)
[2021-04-29] MEDS: INSULIN NPH/REGULAR 70/30 INJ SUB-Q SCH ×2 (09:16→18:23)
[2021-04-29] MEDS: ASCORBIC ACID 500 MG TAB PO SCH ×2 (09:16→22:23)
[2021-04-29] MEDS: carvediloL 12.5 MG TAB PO SCH ×2 (09:16→22:23)
[2021-04-29] MEDS: CHOLECALCIFEROL (VIT D3) 5,000 UNIT TAB PO SCH (09:17)
[2021-04-29] MEDS: LOSARTAN 50 MG TAB PO SCH (09:17)
[2021-04-29] MEDS: INSULIN REGULAR, HUMAN 100 UNITS/1 ML SUB-Q SCH ×4 (09:18→22:24)
[2021-04-29] MEDS: ASPIRIN EC 81 MG TAB PO SCH (09:19)
[2021-04-29] MEDS: ZINC SULFATE 220 MG CAP PO SCH ×2 (09:20→22:23)
--- NOTE | 2021-04-29 13:44 | Progress Note ---
Assessment and Plan Cultures: SARS CoV2 PCR: Positive A/P: 65-year-old male with CVA, CHF, cardiomyopathy, obesity, obesity hypoventilation syndrome, diabetes was admitted with worsening shortness of breath: #Bilateral pneumonia: Secondary to COVID-19 #Acute hypoxic respiratory failure: Secondary to COVID-19, CHF. Improved. #Acute on chronic CHF with cardiomyopathy #Morbid obesity #Diabetes mellitus type 2 Recs: -complete remainder of steroid course -completed remdesivir -Continue diuretics per primary -home oxygen eval, discharge planning Will sign off. Morgan Sanchez MD, FACP, [facility] O: [phone] F: [phone] Subjective Date of service: 04/29/21 Interval history: No fever. Weaned to room air. Objective - Exam Narrative Exam: Physical Exam (reviewed in chart to minimize risk of transmission) Constitutional: deferred Head, Ears, Nose: deferred Eyes: deferred Neck: deferred Oral: deferred Cardiovascular: deferred Respiratory: deferred GI: deferred Musculoskeletal: deferred Skin: deferred Hem/Lymphatic: deferred Psych: deferred Neurological: deferred - Constitutional Vitals: Vital Signs Temp Pulse Resp BP Pulse Ox 97.8 F 65 18 154/72 95 04/29/21 04:18 04/29/21 04:18 04/29/21 04:18 04/29/21 09:19 04/29/21 13:04 Temperature -Last 24 Hours Temperature 97.8 F Temperature 98.4 F - Labs CBC & Chem 7: 04/28/21 05:57 04/28/21 05:57 Labs: Abnormal lab results 04/28/21 04/28/21 04/29/21 Range/Units 16:17 21:24 08:06 POC Glucose 281 H 257 H 198 H (70-105) mg/dL 04/29/21 Range/Units 11:12 POC Glucose 232 H (70-105) mg/dL
--- NOTE | 2021-04-29 15:36 | Progress Note ---
Assessment and Plan Assessment and plan: #CoVID 19 infection pneumonia-resolved #Acute hypoxic respiratory failure-resolved - baseline oxygen requirements: None - supplemental oxygen: Currently on 3 L nasal cannula -Continue remdesivir x5 days and dexamethasone x10 days. Infectious disease consulted; appreciate recs. - Continue protocol: continue pulse oximetry, wean oxygen as tolerated, ordered incentive spirometry and educated patient on how to use it and its importance. Continue droplet and contact isolation. Encouraging patient to prone and ambulate. -Pulmonology consulted; appreciate recs. IV Lasix 20 mg as needed for volume control. - continue to monitor #Acute on chronic (systolic/diastolic) heart failure-resolved - Continue CHF exacerbation protocol: Telemetry, Strict I/O, monitor urine output every shift, daily weights, afterload reduction, low-sodium diet, and fluid restriction of approximately 1.5 mL/day Transition from IV Lasix 40 mg twice daily to p.o. 40 mg twice daily - Supplemental oxygen: 3 L nasal cannula - ProBNP on admission: 853 - Cardiology consulted; appreciate recs - TTE reveals severe global hypokinesis with EF 15-20% - Continue to monitor #Hypertensive urgencyresolved #CAD Patient was not compliant with home antihypertensives. Continue Coreg 12.5 mg twice daily, losartan 50 mg daily Imdur 60 mg daily, ASA 81 mg daily Counseled patient about the importance of medication compliance. #Insulin dependent type II diabetes mellitus - hemoglobin A1c: Pending - home regimen: NPH 70/30 10 units twice daily - current regimen: - blood glucose goal 140-180 while inpatient - continue to monitor #Pulmonary hypertension continue medical management, outpatient pulmonary follow-up. #Hypokalemiaresolved Repleted. Continue to monitor. #Hyperkalemiaresolved #Obesity #Weight loss counseling #Exercise counseling - BMI 41 - Counseled patient on the importance of weight loss, incorporating exercise, and dietary changes (lean meats, fresh fruits and vegetables, and water intake). Patient expresses understanding. - Time: +15 min #Advanced care planning -Disease education conducted, care plan discussed, diagnoses discussed, prognosis discussed, and patient acknowledges understanding with care plan -Time: +30 min #Discharge planning - PT/OT recommended subacute rehab. - Case Management made aware. Pending placement. Disposition Plan: Pending placement Total Time Spent with Patient (Minutes): 45 min History Interval history: No acute events over night. The patient denies fevers, chills, nausea, vomiting, abdominal pain, chest pain/pressure, shortness of breath, urinary symptoms, weakness, or confusion. Hospitalist Physical - Constitutional Vitals: Temp Pulse Resp BP Pulse Ox 98.1 F 65 22 124/71 95 04/29/21 12:21 04/29/21 12:21 04/29/21 12:21 04/29/21 14:43 04/29/21 13:04 General appearance: Present: no acute distress, well-nourished, obese - EENT Eyes: Present: PERRL, EOM intact ENT: hearing intact, clear oral mucosa, dentition normal - Neck Neck: Present: supple, normal ROM - Respiratory Respiratory effort: normal Respiratory: bilateral: diminished - Cardiovascular Rhythm: regular Heart Sounds: Present: S1 & S2 - Extremities Extremities: no ischemia, pulses intact, pulses symmetrical, No edema, normal temperature, normal color Peripheral Pulses: within normal limits - Abdominal General gastrointestinal: soft, non-tender, non-distended, normal bowel sounds - Integumentary Integumentary: Present: clear, warm, dry - Psychiatric Psychiatric: appropriate mood/affect, memory intact, cooperative - Neurologic Neurologic: CNII-XII intact, moves all extremities - Allied Health Allied health notes reviewed: nursing HEART Score - HEART Score Troponin: Troponin T < 0.010 ng/mL (0.00-0.029) 04/23/21 08:01 Results - Labs CBC & Chem 7: 04/28/21 05:57 04/28/21 05:57 Labs: Laboratory Last Values WBC 8.8 K/mm3 (4.5-11.0) 04/28/21 05:57 RBC 4.72 M/mm3 (3.65-5.03) 04/28/21 05:57 Hgb 11.7 gm/dl (11.8-15.2) L 04/28/21 05:57 Hct 38.8 % (35.5-45.6) 04/28/21 05:57 MCV 82 fl (84-94) L 04/28/21 05:57 MCH 25 pg (28-32) L 04/28/21 05:57 MCHC 30 % (32-34) L 04/28/21 05:57 RDW 22.0 % (13.2-15.2) H 04/28/21 05:57 Plt Count 312 K/mm3 (140-440) 04/28/21 05:57 Lymph % (Auto) 13.1 % (13.4-35.0) L 04/28/21 05:57 [place] % (Auto) 6.7 % (0.0-7.3) 04/28/21 05:57 Eos % (Auto) 0.0 % (0.0-4.3) 04/28/21 05:57 Baso % (Auto) 0.1 % (0.0-1.8) 04/28/21 05:57 Lymph # (Auto) 1.1 K/mm3 (1.2-5.4) L 04/28/21 05:57 [place] # (Auto) 0.6 K/mm3 (0.0-0.8) 04/28/21 05:57 Eos # (Auto) 0.0 K/mm3 (0.0-0.4) 04/28/21 05:57 Baso # (Auto) 0.0 K/mm3 (0.0-0.1) 04/28/21 05:57 Seg Neutrophils % 80.1 % (40.0-70.0) H 04/28/21 05:57 Seg Neutrophils # 7.0 K/mm3 (1.8-7.7) 04/28/21 05:57 D-Dimer 386.73 ng/mlDDU (0-234) H 04/27/21 10:48 Sodium 139 mmol/L (137-145) 04/28/21 05:57 Potassium 4.5 mmol/L (3.6-5.0) 04/28/21 05:57 Chloride 101.7 mmol/L (98-107) 04/28/21 05:57 Carbon Dioxide 25 mmol/L (22-30) 04/28/21 05:57 Anion Gap 17 mmol/L 04/28/21 05:57 BUN 29 mg/dL (9-20) H 04/28/21 05:57 Creatinine 1.1 mg/dL (0.8-1.3) 04/28/21 05:57 Estimated GFR > 60 ml/min 04/28/21 05:57 BUN/Creatinine Ratio 26 % 04/28/21 05:57 Glucose 198 mg/dL (75-100) H 04/28/21 05:57 POC Glucose 232 mg/dL (70-105) H 04/29/21 11:12 Hemoglobin A1c 6.8 % (4-6) H 04/27/21 10:48 Calcium 8.6 mg/dL (8.4-10.2) 04/28/21 05:57 Magnesium 2.00 mg/dL (1.7-2.3) 04/23/21 08:01 Total Bilirubin 0.20 mg/dL (0.1-1.2) 04/27/21 10:48 AST 9 units/L (5-40) 04/27/21 10:48 ALT 20 units/L (7-56) 04/27/21 10:48 Alkaline Phosphatase 104 units/L (35-129) 04/27/21 10:48 Troponin T < 0.010 ng/mL (0.00-0.029) 04/23/21 08:01 C-Reactive Protein 0.90 mg/dL (0.00-1.30) 04/27/21 10:48 NT-Pro-B Natriuret Pep 853.2 pg/mL (0-900) 04/23/21 08:01 Total Protein 7.2 g/dL (6.3-8.2) 04/27/21 10:48 Albumin 3.5 g/dL (3.9-5) L 04/27/21 10:48 Albumin/Globulin Ratio 0.9 % 04/27/21 10:48 TSH 1.520 mlU/mL (0.270-4.200) 04/23/21 13:46 Free T4 1.24 ng/dL (0.76-1.46) 04/23/21 13:46 Coronavirus (PCR) Positive (Negative) A 04/23/21 08:51 Goyal/IV: Voiding Method Urinal Active Medications - Current Medications Current Medications: Generic Name Dose Route Start Last Admin Trade Name Freq PRN Reason Stop Dose Admin Acetaminophen 650 mg 04/23/21 12:26 04/28/21 15:06 Acetaminophen 325 Mg Tab PO 650 mg Q4H PRN Administration Pain MILD(1-3)/Fever >100.5/HINDS Ascorbic Acid 1,000 mg 04/26/21 15:00 04/29/21 09:16 Ascorbic Acid 500 Mg Tab PO 1,000 mg BID PATRICE Administration Aspirin 81 mg 04/24/21 13:00 04/29/21 09:19 Aspirin Ec 81 Mg Tab PO 81 mg DAILY PATRICE Administration Carvedilol 12.5 mg 04/24/21 13:00 04/29/21 09:16 Carvedilol 12.5 Mg Tab PO 12.5 mg BID PATRICE Administration Cholecalciferol 5,000 unit 04/26/21 15:00 04/29/21 09:17 Cholecalciferol (Vit D3) 5,000 Unit Tab PO 5,000 unit DAILY PATRICE Administration Dexamethasone 6 mg 04/24/21 14:00 04/29/21 09:16 Dexamethasone 2 Mg Tab PO 05/03/21 10:01 6 mg Q24HR PATRICE Administration Dextrose 50 ml 04/27/21 08:15 Dextrose 50% In Water (25gm) 50 Ml Syringe IV Q30MIN PRN Hypoglycemia Protocol Furosemide 40 mg 04/28/21 18:00 04/29/21 05:12 Furosemide 40 Mg Tab PO 40 mg 0600,1800 PATRICE Administration Guaifenesin 200 mg 04/27/21 11:00 04/29/21 14:49 Guaifenesin 200 Mg Tab PO Not Given Q6HR PATRICE Heparin Sodium (Porcine) 5,000 unit 04/26/21 15:00 04/29/21 14:43 Heparin 5,000 Unit/1 Ml Vial SUB-Q 5,000 unit Q8HR PATRICE Administration Hydralazine HCl 10 mg 04/24/21 00:26 04/24/21 15:47 Hydralazine 20 Mg/1 Ml Inj IV 10 mg Q6HR PRN Administration Hypertension Hydralazine HCl 50 mg 04/26/21 14:30 04/29/21 14:43 Hydralazine 25 Mg Tab PO 50 mg Q8HR PATRICE Administration Hydromorphone HCl 0.5 mg 04/23/21 12:26 Hydromorphone 1 Mg/1 Ml Inj IV Q23H PRN Pain , Severe (7-10) Insulin Human Isoph/Insulin Regular 10 unit 04/27/21 09:00 04/29/21 09:16 Insulin Nph/Regular 70/30 Inj SUB-Q 10 unit BIDDIAB PATRICE Administration Insulin Human Regular 0 units 04/26/21 16:30 04/29/21 14:44 Insulin Regular, Human 100 Units/1 Ml SUB-Q 3 units ACHS PATRICE Administration Protocol Isosorbide Mononitrate 60 mg 04/23/21 10:00 04/29/21 09:19 Isosorbide Mononitrate Er 60 Mg Tab PO 60 mg QDAY PATRICE Administration Losartan Potassium 100 mg 04/29/21 08:00 04/29/21 09:17 Losartan 50 Mg Tab PO 100 mg QDAY PATRICE Administration Melatonin 10 mg 04/27/21 21:00 04/27/21 21:41 Melatonin 5 Mg Tab PO 10 mg QHS PRN Administration Sleep Ondansetron HCl 4 mg 04/23/21 12:26 Ondansetron 4 Mg/2 Ml Inj IV Q8H PRN Nausea And Vomiting Oxycodone/Acetaminophen 1 tab 04/23/21 12:26 04/29/21 05:13 Oxycodone /Acetaminophen 5-325mg Tab PO 1 tab Q16H PRN Administration Pain, Moderate (4-6) Sodium Chloride 10 ml 04/23/21 22:00 04/29/21 09:20 Sodium Chloride 0.9% 10 Ml Flush Syringe IV 10 ml BID PATRICE Administration Sodium Chloride 10 ml 04/23/21 12:26 Sodium Chloride 0.9% 10 Ml Flush Syringe IV PRN PRN LINE FLUSH Zinc Sulfate 220 mg 04/26/21 15:00 04/29/21 09:20 Zinc Sulfate 220 Mg Cap PO 220 mg BID PATRICE Administration
--- NOTE | 2021-04-29 16:30 | XRay Report ---
CHEST 1 VIEW 04/29/2021 2:59 PM INDICATION / CLINICAL INFORMATION: Chest pain. COMPARISON: 04/23/2021 FINDINGS: SUPPORT DEVICES: None. HEART / MEDIASTINUM: Cardiomegaly LUNGS / PLEURA: No significant pulmonary or pleural abnormality. No pneumothorax. IMPRESSION: 1. Cardiomegaly Signer Name: Scooby Madrid MD Signed: 04/29/2021 4:26 PM Workstation Name: [id number]
[2021-04-30] MEDS: HEPARIN 5,000 UNIT/1 ML VIAL SUB-Q SCH ×3 (05:46→22:29)
[2021-04-30] MEDS: hydrALAZINE 25 MG TAB PO SCH (05:46)
[2021-04-30] MEDS: guaiFENesin 200 MG TAB PO SCH ×3 (05:46→17:22)
[2021-04-30] MEDS: FUROSEMIDE 40 MG TAB PO SCH ×2 (05:46→17:22)
[2021-04-30] MEDS ORDERED: hydrALAZINE 25 MG TAB PO SCH (07:48)
[2021-04-30] MEDS ORDERED: hydrALAZINE 25 MG TAB PO ONE (08:00)
[2021-04-30] MEDS: INSULIN REGULAR, HUMAN 100 UNITS/1 ML SUB-Q SCH ×4 (09:00→22:30)
[2021-04-30] MEDS: INSULIN NPH/REGULAR 70/30 INJ SUB-Q SCH ×2 (09:00→17:22)
[2021-04-30] MEDS: ASPIRIN EC 81 MG TAB PO SCH (09:02)
[2021-04-30] MEDS: ASCORBIC ACID 500 MG TAB PO SCH ×2 (09:02→22:30)
[2021-04-30] MEDS: DEXAMETHASONE 2 MG TAB PO SCH (09:03)
[2021-04-30] MEDS: carvediloL 12.5 MG TAB PO SCH ×2 (09:03→22:31)
[2021-04-30] MEDS: CHOLECALCIFEROL (VIT D3) 5,000 UNIT TAB PO SCH (09:03)
[2021-04-30] MEDS: LOSARTAN 50 MG TAB PO SCH (09:03)
[2021-04-30] MEDS: hydrALAZINE 100 MG TAB PO SCH ×2 (13:29→22:29)
[2021-04-30] MEDS: ZINC SULFATE 220 MG CAP PO SCH ×2 (13:32→22:30)
--- NOTE | 2021-04-30 16:15 | Progress Note ---
Assessment and Plan Assessment and plan: #CoVID 19 infection pneumonia-resolved #Acute hypoxic respiratory failure-resolved - baseline oxygen requirements: None - supplemental oxygen: Currently on 3 L nasal cannula -Continue remdesivir x5 days and dexamethasone x10 days. Infectious disease consulted; appreciate recs. - Continue protocol: continue pulse oximetry, wean oxygen as tolerated, ordered incentive spirometry and educated patient on how to use it and its importance. Continue droplet and contact isolation. Encouraging patient to prone and ambulate. -Pulmonology consulted; appreciate recs. IV Lasix 20 mg as needed for volume control. - continue to monitor #Acute on chronic (systolic/diastolic) heart failure-resolved - Continue CHF exacerbation protocol: Telemetry, Strict I/O, monitor urine output every shift, daily weights, afterload reduction, low-sodium diet, and fluid restriction of approximately 1.5 mL/day Transition from IV Lasix 40 mg twice daily to p.o. 40 mg twice daily - Supplemental oxygen: 3 L nasal cannula - ProBNP on admission: 853 - Cardiology consulted; appreciate recs - TTE reveals severe global hypokinesis with EF 15-20% - Continue to monitor #Hypertensive urgencyresolved #CAD Patient was not compliant with home antihypertensives. Continue Coreg 12.5 mg twice daily, losartan 100 mg daily, po hydralazine 100mg q8hrs, Imdur 60 mg daily, ASA 81 mg daily Counseled patient about the importance of medication compliance. #Insulin dependent type II diabetes mellitus - hemoglobin A1c: Pending - home regimen: NPH 70/30 10 units twice daily - current regimen: - blood glucose goal 140-180 while inpatient - continue to monitor #Pulmonary hypertension continue medical management, outpatient pulmonary follow-up. #Hypokalemiaresolved Repleted. Continue to monitor. #Hyperkalemiaresolved #Obesity #Weight loss counseling #Exercise counseling - BMI 41 - Counseled patient on the importance of weight loss, incorporating exercise, and dietary changes (lean meats, fresh fruits and vegetables, and water intake). Patient expresses understanding. - Time: +15 min #Advanced care planning -Disease education conducted, care plan discussed, diagnoses discussed, prognosis discussed, and patient acknowledges understanding with care plan -Time: +30 min #Discharge planning - PT/OT recommended subacute rehab. - Case Management made aware. Pending placement. Disposition Plan: Pending placement Total Time Spent with Patient (Minutes): 45 min History Interval history: No acute events over night. The patient denies fevers, chills, nausea, vomiting, abdominal pain, chest pain/pressure, shortness of breath, urinary symptoms, weakness, or confusion. Hospitalist Physical - Constitutional Vitals: Temp Pulse Resp BP Pulse Ox 98.2 F 64 22 175/101 98 04/30/21 13:07 04/30/21 13:07 04/30/21 13:07 04/30/21 13:07 04/30/21 13:07 General appearance: Present: no acute distress, well-nourished, obese - EENT Eyes: Present: PERRL, EOM intact ENT: hearing intact, clear oral mucosa, dentition normal - Neck Neck: Present: supple, normal ROM - Respiratory Respiratory effort: normal Respiratory: bilateral: diminished - Cardiovascular Rhythm: regular Heart Sounds: Present: S1 & S2 - Extremities Extremities: no ischemia, pulses intact, pulses symmetrical, No edema, normal temperature, normal color Peripheral Pulses: within normal limits - Abdominal General gastrointestinal: soft, non-tender, non-distended, normal bowel sounds - Integumentary Integumentary: Present: clear, warm, dry - Psychiatric Psychiatric: appropriate mood/affect, intact judgment & insight, memory intact, cooperative - Neurologic Neurologic: CNII-XII intact, moves all extremities - Allied Health Allied health notes reviewed: nursing HEART Score - HEART Score Troponin: Troponin T < 0.010 ng/mL (0.00-0.029) 04/23/21 08:01 Results - Labs CBC & Chem 7: 04/28/21 05:57 04/28/21 05:57 Labs: Laboratory Last Values WBC 8.8 K/mm3 (4.5-11.0) 04/28/21 05:57 RBC 4.72 M/mm3 (3.65-5.03) 04/28/21 05:57 Hgb 11.7 gm/dl (11.8-15.2) L 04/28/21 05:57 Hct 38.8 % (35.5-45.6) 04/28/21 05:57 MCV 82 fl (84-94) L 04/28/21 05:57 MCH 25 pg (28-32) L 04/28/21 05:57 MCHC 30 % (32-34) L 04/28/21 05:57 RDW 22.0 % (13.2-15.2) H 04/28/21 05:57 Plt Count 312 K/mm3 (140-440) 04/28/21 05:57 Lymph % (Auto) 13.1 % (13.4-35.0) L 04/28/21 05:57 [place] % (Auto) 6.7 % (0.0-7.3) 04/28/21 05:57 Eos % (Auto) 0.0 % (0.0-4.3) 04/28/21 05:57 Baso % (Auto) 0.1 % (0.0-1.8) 04/28/21 05:57 Lymph # (Auto) 1.1 K/mm3 (1.2-5.4) L 04/28/21 05:57 [place] # (Auto) 0.6 K/mm3 (0.0-0.8) 04/28/21 05:57 Eos # (Auto) 0.0 K/mm3 (0.0-0.4) 04/28/21 05:57 Baso # (Auto) 0.0 K/mm3 (0.0-0.1) 04/28/21 05:57 Seg Neutrophils % 80.1 % (40.0-70.0) H 04/28/21 05:57 Seg Neutrophils # 7.0 K/mm3 (1.8-7.7) 04/28/21 05:57 D-Dimer 386.73 ng/mlDDU (0-234) H 04/27/21 10:48 Sodium 139 mmol/L (137-145) 04/28/21 05:57 Potassium 4.5 mmol/L (3.6-5.0) 04/28/21 05:57 Chloride 101.7 mmol/L (98-107) 04/28/21 05:57 Carbon Dioxide 25 mmol/L (22-30) 04/28/21 05:57 Anion Gap 17 mmol/L 04/28/21 05:57 BUN 29 mg/dL (9-20) H 04/28/21 05:57 Creatinine 1.1 mg/dL (0.8-1.3) 04/28/21 05:57 Estimated GFR > 60 ml/min 04/28/21 05:57 BUN/Creatinine Ratio 26 % 04/28/21 05:57 Glucose 198 mg/dL (75-100) H 04/28/21 05:57 POC Glucose 230 mg/dL (70-105) H 04/30/21 13:05 Hemoglobin A1c 6.8 % (4-6) H 04/27/21 10:48 Calcium 8.6 mg/dL (8.4-10.2) 04/28/21 05:57 Magnesium 2.00 mg/dL (1.7-2.3) 04/23/21 08:01 Total Bilirubin 0.20 mg/dL (0.1-1.2) 04/27/21 10:48 AST 9 units/L (5-40) 04/27/21 10:48 ALT 20 units/L (7-56) 04/27/21 10:48 Alkaline Phosphatase 104 units/L (35-129) 04/27/21 10:48 Troponin T < 0.010 ng/mL (0.00-0.029) 04/23/21 08:01 C-Reactive Protein 0.90 mg/dL (0.00-1.30) 04/27/21 10:48 NT-Pro-B Natriuret Pep 853.2 pg/mL (0-900) 04/23/21 08:01 Total Protein 7.2 g/dL (6.3-8.2) 04/27/21 10:48 Albumin 3.5 g/dL (3.9-5) L 04/27/21 10:48 Albumin/Globulin Ratio 0.9 % 04/27/21 10:48 TSH 1.520 mlU/mL (0.270-4.200) 04/23/21 13:46 Free T4 1.24 ng/dL (0.76-1.46) 04/23/21 13:46 Coronavirus (PCR) Positive (Negative) A 04/23/21 08:51 Goyal/IV: Voiding Method Urinal Active Medications - Current Medications Current Medications: Generic Name Dose Route Start Last Admin Trade Name Freq PRN Reason Stop Dose Admin Acetaminophen 650 mg 04/23/21 12:26 04/28/21 15:06 Acetaminophen 325 Mg Tab PO 650 mg Q4H PRN Administration Pain MILD(1-3)/Fever >100.5/HINDS Ascorbic Acid 1,000 mg 04/26/21 15:00 04/30/21 09:02 Ascorbic Acid 500 Mg Tab PO 1,000 mg BID PATRICE Administration Aspirin 81 mg 04/24/21 13:00 04/30/21 09:02 Aspirin Ec 81 Mg Tab PO 81 mg DAILY PATRICE Administration Carvedilol 12.5 mg 04/24/21 13:00 04/30/21 09:03 Carvedilol 12.5 Mg Tab PO 12.5 mg BID PATRICE Administration Cholecalciferol 5,000 unit 04/26/21 15:00 04/30/21 09:03 Cholecalciferol (Vit D3) 5,000 Unit Tab PO 5,000 unit DAILY PATRICE Administration Dexamethasone 6 mg 04/24/21 14:00 04/30/21 09:03 Dexamethasone 2 Mg Tab PO 05/03/21 10:01 6 mg Q24HR PATRICE Administration Dextrose 50 ml 04/27/21 08:15 Dextrose 50% In Water (25gm) 50 Ml Syringe IV Q30MIN PRN Hypoglycemia Protocol Furosemide 40 mg 04/28/21 18:00 04/30/21 05:46 Furosemide 40 Mg Tab PO 40 mg 0600,1800 PATRICE Administration Furosemide 40 mg 04/30/21 16:12 Furosemide 40 Mg/4 Ml Inj IV 04/30/21 16:13 ONCE ONE Guaifenesin 200 mg 04/27/21 11:00 04/30/21 13:28 Guaifenesin 200 Mg Tab PO 200 mg Q6HR PATRICE Administration Heparin Sodium (Porcine) 5,000 unit 04/26/21 15:00 04/30/21 05:46 Heparin 5,000 Unit/1 Ml Vial SUB-Q 5,000 unit Q8HR PATRICE Administration Hydralazine HCl 10 mg 04/24/21 00:26 04/24/21 15:47 Hydralazine 20 Mg/1 Ml Inj IV 10 mg Q6HR PRN Administration Hypertension Hydralazine HCl 100 mg 04/30/21 14:00 04/30/21 13:29 Hydralazine 100 Mg Tab PO 100 mg Q8HR PATRICE Administration Hydromorphone HCl 0.5 mg 04/23/21 12:26 Hydromorphone 1 Mg/1 Ml Inj IV Q23H PRN Pain , Severe (7-10) Insulin Human Isoph/Insulin Regular 10 unit 04/27/21 09:00 04/30/21 09:00 Insulin Nph/Regular 70/30 Inj SUB-Q 10 unit BIDDIAB PATRICE Administration Insulin Human Regular 0 units 04/26/21 16:30 04/30/21 13:28 Insulin Regular, Human 100 Units/1 Ml SUB-Q 3 units ACHS PATRICE Administration Protocol Isosorbide Mononitrate 60 mg 04/23/21 10:00 04/30/21 09:04 Isosorbide Mononitrate Er 60 Mg Tab PO 60 mg QDAY PATRICE Administration Losartan Potassium 100 mg 04/29/21 08:00 04/30/21 09:03 Losartan 50 Mg Tab PO 100 mg QDAY PATRICE Administration Melatonin 10 mg 04/27/21 21:00 04/27/21 21:41 Melatonin 5 Mg Tab PO 10 mg QHS PRN Administration Sleep Ondansetron HCl 4 mg 04/23/21 12:26 Ondansetron 4 Mg/2 Ml Inj IV Q8H PRN Nausea And Vomiting Oxycodone/Acetaminophen 1 tab 04/23/21 12:26 04/29/21 05:13 Oxycodone /Acetaminophen 5-325mg Tab PO 1 tab Q16H PRN Administration Pain, Moderate (4-6) Sodium Chloride 10 ml 04/23/21 22:00 04/30/21 09:05 Sodium Chloride 0.9% 10 Ml Flush Syringe IV 10 ml BID PATRICE Administration Sodium Chloride 10 ml 04/23/21 12:26 Sodium Chloride 0.9% 10 Ml Flush Syringe IV PRN PRN LINE FLUSH Zinc Sulfate 220 mg 04/26/21 15:00 04/30/21 13:32 Zinc Sulfate 220 Mg Cap PO 220 mg BID PATRICE Administration Nutrition/Malnutrition Assess - Dietary Evaluation Nutrition/Malnutrition Findings: Nutrition Notes Start: 04/30/21 10:58 Freq: Status: Active Protocol: Document 04/30/21 10:58 VALERY (Rec: 04/30/21 10:59 VALERY [id number]) Nutrition Notes Need for Assessment generated from: LOS Initial or Follow up Brief Note Current Diet Cardiac/Consistent CHO with 1. 5L fluid restriction Subjective/Other Information Pt screened for LOS. He has consumed 100% of meals since admission. Burn Absent Trauma Absent Minimum of two criteria No Nutrition Intervention Revisit per MD consult or patient Sign Off request:
[2021-04-30] MEDS ORDERED: FUROSEMIDE 40 MG/4 ML INJ IV ONE (17:12)
[2021-04-30] MEDS: hydrALAZINE 20 MG/1 ML INJ IV PRN (19:29)
[2021-05-01] MEDS: guaiFENesin 200 MG TAB PO SCH ×2 (00:10→07:00)
[2021-05-01] MEDS: FUROSEMIDE 40 MG TAB PO SCH ×2 (07:00→17:29)
[2021-05-01] MEDS: hydrALAZINE 100 MG TAB PO SCH ×3 (07:00→22:40)
[2021-05-01] MEDS: HEPARIN 5,000 UNIT/1 ML VIAL SUB-Q SCH ×3 (07:00→22:43)
[2021-05-01] MEDS: INSULIN REGULAR, HUMAN 100 UNITS/1 ML SUB-Q SCH ×4 (09:30→22:41)
[2021-05-01] MEDS: INSULIN NPH/REGULAR 70/30 INJ SUB-Q SCH ×2 (09:30→17:29)
[2021-05-01] MEDS: carvediloL 12.5 MG TAB PO SCH ×2 (10:06→22:40)
[2021-05-01] MEDS: ZINC SULFATE 220 MG CAP PO SCH ×2 (10:06→22:39)
[2021-05-01] MEDS: CHOLECALCIFEROL (VIT D3) 5,000 UNIT TAB PO SCH (10:06)
[2021-05-01] MEDS: ASCORBIC ACID 500 MG TAB PO SCH ×2 (10:06→22:39)
[2021-05-01] MEDS: ASPIRIN EC 81 MG TAB PO SCH (10:06)
[2021-05-01] MEDS: VALSARTAN 160MG TAB PO SCH (10:10)
--- NOTE | 2021-05-01 10:11 | Progress Note ---
Assessment and Plan 1. Acute on chronic (systolic/diastolic) heart failure-euvolemic now. TTE reveals severe global hypokinesis with EF 15-20% Continue Coreg, oral Lasix and hydralazine. Recheck BMP and if creatinine is stable start patient on losartan with an aim of switching to Entresto as an outpatient 2.Hypertensive urgencyon presentation. Currently blood pressure much better controlled with Continue same regimen 3. Acute hypoxic respiratory failure-resolved -Improved. Followed by primary and pulmonology. 4. COVID-infection Followed by primary Subjective Date of service: 05/01/21 Principal diagnosis: Shortness of breath. Interval history: Continues to do the same. Objective Vital Signs Temp Pulse Resp Resp BP Pulse Ox 05/01/21 06:07 97.8 F 63 20 186/99 96 05/01/21 00:00 97 04/30/21 23:41 98 04/30/21 22:31 85 179/82 04/30/21 22:00 19 04/30/21 21:30 97.9 F 75 20 179/82 93 04/30/21 19:29 194/119 04/30/21 17:54 98.3 F 70 24 194/119 97 04/30/21 13:07 98.2 F 64 22 175/101 98 04/30/21 12:05 96 - Physical Examination General: No Apparent Distress HEENT: Positive: Normocephaly Neck: Positive: neck supple, trachea midline, JVD/HJR (Elevated JVP) Cardiac: Positive: Reg Rate and Rhythm Lungs: Positive: No Wheeze, Rales, Rhonchi Neuro: Positive: Grossly Intact Abdomen: Positive: Unremarkable, Soft (Obese) Extremities: Present: normal, warm - Imaging and Cardiology EKG: report reviewed Echo: report reviewed
--- NOTE | 2021-05-01 11:21 | Progress Note ---
Assessment and Plan Assessment and plan: #CoVID 19 infection pneumonia-resolved #Acute hypoxic respiratory failure-resolved - baseline oxygen requirements: None - supplemental oxygen: Currently on 3 L nasal cannula -Continue remdesivir x5 days and dexamethasone x10 days. Infectious disease consulted; appreciate recs. - Continue protocol: continue pulse oximetry, wean oxygen as tolerated, ordered incentive spirometry and educated patient on how to use it and its importance. Continue droplet and contact isolation. Encouraging patient to prone and ambulate. -Pulmonology consulted; appreciate recs. IV Lasix 20 mg as needed for volume control. - continue to monitor #Acute on chronic (systolic/diastolic) heart failure-resolved - Continue CHF exacerbation protocol: Telemetry, Strict I/O, monitor urine output every shift, daily weights, afterload reduction, low-sodium diet, and fluid restriction of approximately 1.5 mL/day Transition from IV Lasix 40 mg twice daily to p.o. 40 mg twice daily - Supplemental oxygen: 3 L nasal cannula - ProBNP on admission: 853 - Cardiology consulted; appreciate recs - TTE reveals severe global hypokinesis with EF 15-20% - Continue to monitor #Hypertensive urgencyresolved #CAD Patient was not compliant with home antihypertensives. Continue Coreg 12.5 mg twice daily, losartan 100 mg daily, po hydralazine 100mg q8hrs, Imdur 60 mg daily, ASA 81 mg daily Counseled patient about the importance of medication compliance. #Insulin dependent type II diabetes mellitus - hemoglobin A1c: Pending - home regimen: NPH 70/30 10 units twice daily - current regimen: - blood glucose goal 140-180 while inpatient - continue to monitor #Pulmonary hypertension continue medical management, outpatient pulmonary follow-up. #Hypokalemiaresolved Repleted. Continue to monitor. #Hyperkalemiaresolved #Obesity #Weight loss counseling #Exercise counseling - BMI 41 - Counseled patient on the importance of weight loss, incorporating exercise, and dietary changes (lean meats, fresh fruits and vegetables, and water intake). Patient expresses understanding. - Time: +15 min #Advanced care planning -Disease education conducted, care plan discussed, diagnoses discussed, prognosis discussed, and patient acknowledges understanding with care plan -Time: +30 min #Discharge planning - PT/OT recommended subacute rehab. - Case Management made aware. Pending placement. Disposition Plan: Continue medical management Total Time Spent with Patient (Minutes): 45 min History Interval history: No acute events over night. The patient denies fevers, chills, nausea, vomiting, abdominal pain, chest pain/pressure, shortness of breath, urinary symptoms, weakness, or confusion. Hospitalist Physical - Constitutional Vitals: Temp Pulse Resp BP Pulse Ox 97.8 F 67 20 169/72 96 05/01/21 06:07 05/01/21 10:10 05/01/21 06:07 05/01/21 10:10 05/01/21 06:07 General appearance: Present: no acute distress, well-nourished, obese - EENT Eyes: Present: PERRL, EOM intact ENT: hearing intact, clear oral mucosa, dentition normal - Neck Neck: Present: supple, normal ROM - Respiratory Respiratory effort: normal Respiratory: bilateral: diminished - Cardiovascular Rhythm: regular Heart Sounds: Present: S1 & S2 - Extremities Extremities: no ischemia, pulses intact, pulses symmetrical, No edema, normal temperature, normal color Peripheral Pulses: within normal limits - Abdominal General gastrointestinal: soft, non-tender, non-distended, normal bowel sounds - Integumentary Integumentary: Present: clear, warm, dry - Psychiatric Psychiatric: appropriate mood/affect, intact judgment & insight, memory intact, cooperative - Neurologic Neurologic: CNII-XII intact, moves all extremities - Allied Health Allied health notes reviewed: nursing HEART Score - HEART Score Troponin: Troponin T < 0.010 ng/mL (0.00-0.029) 04/23/21 08:01 Results - Labs CBC & Chem 7: 04/28/21 05:57 04/28/21 05:57 Labs: Laboratory Last Values WBC 8.8 K/mm3 (4.5-11.0) 04/28/21 05:57 RBC 4.72 M/mm3 (3.65-5.03) 04/28/21 05:57 Hgb 11.7 gm/dl (11.8-15.2) L 04/28/21 05:57 Hct 38.8 % (35.5-45.6) 04/28/21 05:57 MCV 82 fl (84-94) L 04/28/21 05:57 MCH 25 pg (28-32) L 04/28/21 05:57 MCHC 30 % (32-34) L 04/28/21 05:57 RDW 22.0 % (13.2-15.2) H 04/28/21 05:57 Plt Count 312 K/mm3 (140-440) 04/28/21 05:57 Lymph % (Auto) 13.1 % (13.4-35.0) L 04/28/21 05:57 [place] % (Auto) 6.7 % (0.0-7.3) 04/28/21 05:57 Eos % (Auto) 0.0 % (0.0-4.3) 04/28/21 05:57 Baso % (Auto) 0.1 % (0.0-1.8) 04/28/21 05:57 Lymph # (Auto) 1.1 K/mm3 (1.2-5.4) L 04/28/21 05:57 [place] # (Auto) 0.6 K/mm3 (0.0-0.8) 04/28/21 05:57 Eos # (Auto) 0.0 K/mm3 (0.0-0.4) 04/28/21 05:57 Baso # (Auto) 0.0 K/mm3 (0.0-0.1) 04/28/21 05:57 Seg Neutrophils % 80.1 % (40.0-70.0) H 04/28/21 05:57 Seg Neutrophils # 7.0 K/mm3 (1.8-7.7) 04/28/21 05:57 D-Dimer 386.73 ng/mlDDU (0-234) H 04/27/21 10:48 Sodium 139 mmol/L (137-145) 04/28/21 05:57 Potassium 4.5 mmol/L (3.6-5.0) 04/28/21 05:57 Chloride 101.7 mmol/L (98-107) 04/28/21 05:57 Carbon Dioxide 25 mmol/L (22-30) 04/28/21 05:57 Anion Gap 17 mmol/L 04/28/21 05:57 BUN 29 mg/dL (9-20) H 04/28/21 05:57 Creatinine 1.1 mg/dL (0.8-1.3) 04/28/21 05:57 Estimated GFR > 60 ml/min 04/28/21 05:57 BUN/Creatinine Ratio 26 % 04/28/21 05:57 Glucose 198 mg/dL (75-100) H 04/28/21 05:57 POC Glucose 262 mg/dL (70-105) H 05/01/21 10:47 Hemoglobin A1c 6.8 % (4-6) H 04/27/21 10:48 Calcium 8.6 mg/dL (8.4-10.2) 04/28/21 05:57 Magnesium 2.00 mg/dL (1.7-2.3) 04/23/21 08:01 Total Bilirubin 0.20 mg/dL (0.1-1.2) 04/27/21 10:48 AST 9 units/L (5-40) 04/27/21 10:48 ALT 20 units/L (7-56) 04/27/21 10:48 Alkaline Phosphatase 104 units/L (35-129) 04/27/21 10:48 Troponin T < 0.010 ng/mL (0.00-0.029) 04/23/21 08:01 C-Reactive Protein 0.90 mg/dL (0.00-1.30) 04/27/21 10:48 NT-Pro-B Natriuret Pep 853.2 pg/mL (0-900) 04/23/21 08:01 Total Protein 7.2 g/dL (6.3-8.2) 04/27/21 10:48 Albumin 3.5 g/dL (3.9-5) L 04/27/21 10:48 Albumin/Globulin Ratio 0.9 % 04/27/21 10:48 TSH 1.520 mlU/mL (0.270-4.200) 04/23/21 13:46 Free T4 1.24 ng/dL (0.76-1.46) 04/23/21 13:46 Coronavirus (PCR) Positive (Negative) A 04/23/21 08:51 Goyal/IV: Voiding Method Urinal Active Medications - Current Medications Current Medications: Generic Name Dose Route Start Last Admin Trade Name Freq PRN Reason Stop Dose Admin Acetaminophen 650 mg 04/23/21 12:26 04/28/21 15:06 Acetaminophen 325 Mg Tab PO 650 mg Q4H PRN Administration Pain MILD(1-3)/Fever >100.5/HINDS Ascorbic Acid 1,000 mg 04/26/21 15:00 05/01/21 10:06 Ascorbic Acid 500 Mg Tab PO 1,000 mg BID PATRICE Administration Aspirin 81 mg 04/24/21 13:00 05/01/21 10:06 Aspirin Ec 81 Mg Tab PO 81 mg DAILY PATRICE Administration Carvedilol 12.5 mg 04/24/21 13:00 05/01/21 10:06 Carvedilol 12.5 Mg Tab PO 12.5 mg BID PATRICE Administration Cholecalciferol 5,000 unit 04/26/21 15:00 05/01/21 10:06 Cholecalciferol (Vit D3) 5,000 Unit Tab PO 5,000 unit DAILY PATRICE Administration Dextrose 50 ml 04/27/21 08:15 Dextrose 50% In Water (25gm) 50 Ml Syringe IV Q30MIN PRN Hypoglycemia Protocol Furosemide 40 mg 04/28/21 18:00 05/01/21 07:00 Furosemide 40 Mg Tab PO 40 mg 0600,1800 PATRICE Administration Furosemide 40 mg 05/01/21 11:17 Furosemide 40 Mg/4 Ml Inj IV 05/01/21 11:18 ONCE ONE Guaifenesin 600 mg 05/01/21 12:00 Guaifenesin Er 600 Mg Tab PO BID PATRICE Heparin Sodium (Porcine) 5,000 unit 04/26/21 15:00 05/01/21 07:00 Heparin 5,000 Unit/1 Ml Vial SUB-Q 5,000 unit Q8HR PATRICE Administration Hydralazine HCl 10 mg 04/24/21 00:26 04/30/21 19:29 Hydralazine 20 Mg/1 Ml Inj IV 10 mg Q6HR PRN Administration Hypertension Hydralazine HCl 100 mg 04/30/21 14:00 05/01/21 07:00 Hydralazine 100 Mg Tab PO 100 mg Q8HR PATRICE Administration Hydromorphone HCl 0.5 mg 04/23/21 12:26 Hydromorphone 1 Mg/1 Ml Inj IV Q23H PRN Pain , Severe (7-10) Insulin Human Isoph/Insulin Regular 15 unit 05/01/21 08:00 05/01/21 09:30 Insulin Nph/Regular 70/30 Inj SUB-Q 15 unit BIDDIAB PATRICE Administration Insulin Human Regular 0 units 04/26/21 16:30 05/01/21 09:30 Insulin Regular, Human 100 Units/1 Ml SUB-Q 2 units ACHS PATRICE Administration Protocol Isosorbide Mononitrate 60 mg 04/23/21 10:00 05/01/21 10:06 Isosorbide Mononitrate Er 60 Mg Tab PO 60 mg QDAY PATRICE Administration Melatonin 10 mg 04/27/21 21:00 04/27/21 21:41 Melatonin 5 Mg Tab PO 10 mg QHS PRN Administration Sleep Ondansetron HCl 4 mg 04/23/21 12:26 Ondansetron 4 Mg/2 Ml Inj IV Q8H PRN Nausea And Vomiting Oxycodone/Acetaminophen 1 tab 04/23/21 12:26 04/29/21 05:13 Oxycodone /Acetaminophen 5-325mg Tab PO 1 tab Q16H PRN Administration Pain, Moderate (4-6) Sodium Chloride 10 ml 04/23/21 22:00 05/01/21 10:10 Sodium Chloride 0.9% 10 Ml Flush Syringe IV 10 ml BID PATRICE Administration Sodium Chloride 10 ml 04/23/21 12:26 Sodium Chloride 0.9% 10 Ml Flush Syringe IV PRN PRN LINE FLUSH Valsartan 160 mg 05/01/21 10:00 05/01/21 10:10 Valsartan 160mg Tab PO 160 mg DAILY PATRICE Administration Zinc Sulfate 220 mg 04/26/21 15:00 05/01/21 10:06 Zinc Sulfate 220 Mg Cap PO 220 mg BID PATRICE Administration Nutrition/Malnutrition Assess - Dietary Evaluation Nutrition/Malnutrition Findings: Nutrition Notes Start: 04/30/21 10:58 Freq: Status: Active Protocol: Document 04/30/21 10:58 VALERY (Rec: 04/30/21 10:59 VALERY [id number]) Nutrition Notes Need for Assessment generated from: LOS Initial or Follow up Brief Note Current Diet Cardiac/Consistent CHO with 1. 5L fluid restriction Subjective/Other Information Pt screened for LOS. He has consumed 100% of meals since admission. Burn Absent Trauma Absent Minimum of two criteria No Nutrition Intervention Revisit per MD consult or patient Sign Off request:
[2021-05-01] MEDS: guaiFENesin ER 600 MG TAB PO SCH ×2 (11:35→22:41)
[2021-05-01] MEDS ORDERED: FUROSEMIDE 40 MG/4 ML INJ IV ONE (12:00)
[2021-05-02] MEDS: HEPARIN 5,000 UNIT/1 ML VIAL SUB-Q SCH ×3 (05:59→22:37)
[2021-05-02] MEDS: FUROSEMIDE 40 MG TAB PO SCH ×2 (06:00→17:26)
[2021-05-02] MEDS: hydrALAZINE 100 MG TAB PO SCH ×3 (06:00→22:37)
[2021-05-02] MEDS: INSULIN REGULAR, HUMAN 100 UNITS/1 ML SUB-Q SCH ×4 (08:59→22:41)
--- NOTE | 2021-05-02 09:20 | Progress Note ---
Assessment and Plan 1. Acute on chronic (systolic/diastolic) heart failure-euvolemic now. TTE reveals severe global hypokinesis with EF 15-20% Increase Coreg. Continue valsartan, hydralazine. At some point we will also add spironolactone. Long-term would consider changing valsartan to Entresto. 2.Hypertensive urgencyon presentation. Blood pressures elevated. Increase carvedilol. If blood pressure still elevated add spironolactone as indicated above. 3. Acute hypoxic respiratory failure-resolved -Improved. Followed by primary and pulmonology. 4. COVID-infection Followed by primary Subjective Date of service: 05/02/21 Principal diagnosis: Shortness of breath. Interval history: Continues to do the same. No significant events overnight. Blood pressure remains elevated. Objective Vital Signs Temp Pulse Resp BP Pulse Ox 05/02/21 05:15 97.5 F L 63 16 183/88 97 05/02/21 00:00 20 96 05/01/21 22:40 68 146/74 05/01/21 21:21 97.5 F L 63 20 174/84 97 05/01/21 16:01 98.6 F 68 18 146/74 99 05/01/21 12:02 99 05/01/21 12:00 96 05/01/21 11:40 98.3 F 65 18 170/87 97 05/01/21 10:10 67 169/72 05/01/21 10:06 67 169/72 - Physical Examination General: No Apparent Distress HEENT: Positive: Normocephaly Neck: Positive: neck supple, trachea midline, JVD/HJR (Elevated JVP) Cardiac: Positive: Reg Rate and Rhythm Lungs: Positive: No Wheeze, Rales, Rhonchi Neuro: Positive: Grossly Intact Abdomen: Positive: Unremarkable, Soft (Obese) Extremities: Present: normal, +1 Edema, warm - Imaging and Cardiology EKG: report reviewed Echo: report reviewed
[2021-05-02] MEDS: INSULIN NPH/REGULAR 70/30 INJ SUB-Q SCH ×2 (09:45→17:24)
[2021-05-02] MEDS: CHOLECALCIFEROL (VIT D3) 5,000 UNIT TAB PO SCH (09:46)
[2021-05-02] MEDS: ASPIRIN EC 81 MG TAB PO SCH (09:46)
[2021-05-02] MEDS: guaiFENesin ER 600 MG TAB PO SCH ×2 (09:46→22:39)
[2021-05-02] MEDS: VALSARTAN 160MG TAB PO SCH (09:46)
[2021-05-02] MEDS: ZINC SULFATE 220 MG CAP PO SCH ×2 (09:46→22:38)
[2021-05-02] MEDS: ASCORBIC ACID 500 MG TAB PO SCH ×2 (09:47→22:39)
[2021-05-02] MEDS: carvediloL 12.5 MG TAB PO SCH ×2 (09:51→22:37)
--- NOTE | 2021-05-02 10:05 | Progress Note ---
Assessment and Plan Assessment and plan: #CoVID 19 infection pneumonia-resolved #Acute hypoxic respiratory failure-resolved - baseline oxygen requirements: None - supplemental oxygen: Currently on 3 L nasal cannula -Continue remdesivir x5 days and dexamethasone x10 days. Infectious disease consulted; appreciate recs. - Continue protocol: continue pulse oximetry, wean oxygen as tolerated, ordered incentive spirometry and educated patient on how to use it and its importance. Continue droplet and contact isolation. Encouraging patient to prone and ambulate. -Pulmonology consulted; appreciate recs. IV Lasix 20 mg as needed for volume control. - continue to monitor #Acute on chronic (systolic/diastolic) heart failure-resolved - Continue CHF exacerbation protocol: Telemetry, Strict I/O, monitor urine output every shift, daily weights, afterload reduction, low-sodium diet, and fluid restriction of approximately 1.5 mL/day Continue p.o. Lasix 40 mg twice daily - Supplemental oxygen: 3 L nasal cannula - ProBNP on admission: 853 - Cardiology consulted; appreciate recs - TTE reveals severe global hypokinesis with EF 15-20% - Continue to monitor #Hypertensive urgencyresolved #CAD Patient was not compliant with home antihypertensives. Continue Coreg 25 mg twice daily, losartan 100 mg daily, po hydralazine 100mg q8hrs, Imdur 60 mg daily, ASA 81 mg daily Counseled patient about the importance of medication compliance. #Insulin dependent type II diabetes mellitus - hemoglobin A1c: Pending - home regimen: NPH 70/30 10 units twice daily - current regimen: - blood glucose goal 140-180 while inpatient - continue to monitor #Pulmonary hypertension continue medical management, outpatient pulmonary follow-up. #Hypokalemiaresolved Repleted. Continue to monitor. #Hyperkalemiaresolved #Obesity #Weight loss counseling #Exercise counseling - BMI 41 - Counseled patient on the importance of weight loss, incorporating exercise, and dietary changes (lean meats, fresh fruits and vegetables, and water intake). Patient expresses understanding. - Time: +15 min #Advanced care planning -Disease education conducted, care plan discussed, diagnoses discussed, prognosis discussed, and patient acknowledges understanding with care plan -Time: +30 min #Discharge planning - PT/OT recommended subacute rehab. - Case Management made aware. Pending placement. Disposition Plan: Pending placement Total Time Spent with Patient (Minutes): 45 minutes History Interval history: No acute events over night. The patient denies fevers, chills, nausea, vomiting, abdominal pain, chest pain/pressure, shortness of breath, urinary symptoms, weakness, or confusion. Hospitalist Physical - Constitutional Vitals: Temp Pulse Resp BP Pulse Ox 97.5 F L 74 16 148/71 97 05/02/21 05:15 05/02/21 09:51 05/02/21 05:15 05/02/21 09:51 05/02/21 05:15 General appearance: Present: no acute distress, well-nourished, obese - EENT Eyes: Present: PERRL, EOM intact ENT: hearing intact, clear oral mucosa, dentition normal - Neck Neck: Present: supple, normal ROM - Respiratory Respiratory effort: normal Respiratory: bilateral: diminished - Cardiovascular Rhythm: regular Heart Sounds: Present: S1 & S2 - Extremities Extremities: no ischemia, pulses intact, pulses symmetrical, No edema, normal temperature, normal color Peripheral Pulses: within normal limits - Abdominal General gastrointestinal: soft, non-tender, non-distended, normal bowel sounds - Integumentary Integumentary: Present: clear, warm, dry - Psychiatric Psychiatric: appropriate mood/affect, intact judgment & insight, cooperative - Neurologic Neurologic: CNII-XII intact - Allied Health Allied health notes reviewed: nursing HEART Score - HEART Score Troponin: Troponin T < 0.010 ng/mL (0.00-0.029) 04/23/21 08:01 Results - Labs CBC & Chem 7: 04/28/21 05:57 04/28/21 05:57 Labs: Laboratory Last Values WBC 8.8 K/mm3 (4.5-11.0) 04/28/21 05:57 RBC 4.72 M/mm3 (3.65-5.03) 04/28/21 05:57 Hgb 11.7 gm/dl (11.8-15.2) L 04/28/21 05:57 Hct 38.8 % (35.5-45.6) 04/28/21 05:57 MCV 82 fl (84-94) L 04/28/21 05:57 MCH 25 pg (28-32) L 04/28/21 05:57 MCHC 30 % (32-34) L 04/28/21 05:57 RDW 22.0 % (13.2-15.2) H 04/28/21 05:57 Plt Count 312 K/mm3 (140-440) 04/28/21 05:57 Lymph % (Auto) 13.1 % (13.4-35.0) L 04/28/21 05:57 [place] % (Auto) 6.7 % (0.0-7.3) 04/28/21 05:57 Eos % (Auto) 0.0 % (0.0-4.3) 04/28/21 05:57 Baso % (Auto) 0.1 % (0.0-1.8) 04/28/21 05:57 Lymph # (Auto) 1.1 K/mm3 (1.2-5.4) L 04/28/21 05:57 [place] # (Auto) 0.6 K/mm3 (0.0-0.8) 04/28/21 05:57 Eos # (Auto) 0.0 K/mm3 (0.0-0.4) 04/28/21 05:57 Baso # (Auto) 0.0 K/mm3 (0.0-0.1) 04/28/21 05:57 Seg Neutrophils % 80.1 % (40.0-70.0) H 04/28/21 05:57 Seg Neutrophils # 7.0 K/mm3 (1.8-7.7) 04/28/21 05:57 D-Dimer 386.73 ng/mlDDU (0-234) H 04/27/21 10:48 Sodium 139 mmol/L (137-145) 04/28/21 05:57 Potassium 4.5 mmol/L (3.6-5.0) 04/28/21 05:57 Chloride 101.7 mmol/L (98-107) 04/28/21 05:57 Carbon Dioxide 25 mmol/L (22-30) 04/28/21 05:57 Anion Gap 17 mmol/L 04/28/21 05:57 BUN 29 mg/dL (9-20) H 04/28/21 05:57 Creatinine 1.1 mg/dL (0.8-1.3) 04/28/21 05:57 Estimated GFR > 60 ml/min 04/28/21 05:57 BUN/Creatinine Ratio 26 % 04/28/21 05:57 Glucose 198 mg/dL (75-100) H 04/28/21 05:57 POC Glucose 111 mg/dL (70-105) H 05/02/21 07:29 Hemoglobin A1c 6.8 % (4-6) H 04/27/21 10:48 Calcium 8.6 mg/dL (8.4-10.2) 04/28/21 05:57 Magnesium 2.00 mg/dL (1.7-2.3) 04/23/21 08:01 Total Bilirubin 0.20 mg/dL (0.1-1.2) 04/27/21 10:48 AST 9 units/L (5-40) 04/27/21 10:48 ALT 20 units/L (7-56) 04/27/21 10:48 Alkaline Phosphatase 104 units/L (35-129) 04/27/21 10:48 Troponin T < 0.010 ng/mL (0.00-0.029) 04/23/21 08:01 C-Reactive Protein 0.90 mg/dL (0.00-1.30) 04/27/21 10:48 NT-Pro-B Natriuret Pep 853.2 pg/mL (0-900) 04/23/21 08:01 Total Protein 7.2 g/dL (6.3-8.2) 04/27/21 10:48 Albumin 3.5 g/dL (3.9-5) L 04/27/21 10:48 Albumin/Globulin Ratio 0.9 % 04/27/21 10:48 TSH 1.520 mlU/mL (0.270-4.200) 04/23/21 13:46 Free T4 1.24 ng/dL (0.76-1.46) 04/23/21 13:46 Coronavirus (PCR) Negative (Negative) 05/01/21 09:45 Goyal/IV: Voiding Method Urinal Active Medications - Current Medications Current Medications: Generic Name Dose Route Start Last Admin Trade Name Freq PRN Reason Stop Dose Admin Acetaminophen 650 mg 04/23/21 12:26 04/28/21 15:06 Acetaminophen 325 Mg Tab PO 650 mg Q4H PRN Administration Pain MILD(1-3)/Fever >100.5/HINDS Ascorbic Acid 1,000 mg 04/26/21 15:00 05/02/21 09:47 Ascorbic Acid 500 Mg Tab PO 1,000 mg BID PATRICE Administration Aspirin 81 mg 04/24/21 13:00 05/02/21 09:46 Aspirin Ec 81 Mg Tab PO 81 mg DAILY PATRICE Administration Carvedilol 25 mg 05/02/21 10:00 05/02/21 09:51 Carvedilol 12.5 Mg Tab PO 25 mg BID PATRICE Administration Cholecalciferol 5,000 unit 04/26/21 15:00 05/02/21 09:46 Cholecalciferol (Vit D3) 5,000 Unit Tab PO 5,000 unit DAILY PATRICE Administration Dextrose 50 ml 04/27/21 08:15 Dextrose 50% In Water (25gm) 50 Ml Syringe IV Q30MIN PRN Hypoglycemia Protocol Furosemide 40 mg 04/28/21 18:00 05/02/21 06:00 Furosemide 40 Mg Tab PO 40 mg 0600,1800 PATRICE Administration Guaifenesin 600 mg 05/01/21 12:00 05/02/21 09:46 Guaifenesin Er 600 Mg Tab PO 600 mg BID PATRICE Administration Heparin Sodium (Porcine) 5,000 unit 04/26/21 15:00 05/02/21 05:59 Heparin 5,000 Unit/1 Ml Vial SUB-Q 5,000 unit Q8HR PATRICE Administration Hydralazine HCl 10 mg 04/24/21 00:26 04/30/21 19:29 Hydralazine 20 Mg/1 Ml Inj IV 10 mg Q6HR PRN Administration Hypertension Hydralazine HCl 100 mg 04/30/21 14:00 05/02/21 06:00 Hydralazine 100 Mg Tab PO 100 mg Q8HR PATRICE Administration Hydromorphone HCl 0.5 mg 04/23/21 12:26 Hydromorphone 1 Mg/1 Ml Inj IV Q23H PRN Pain , Severe (7-10) Insulin Human Isoph/Insulin Regular 15 unit 05/01/21 08:00 05/02/21 09:45 Insulin Nph/Regular 70/30 Inj SUB-Q 15 unit BIDDIAB PATRICE Administration Insulin Human Regular 0 units 04/26/21 16:30 05/02/21 08:59 Insulin Regular, Human 100 Units/1 Ml SUB-Q Not Given ACHS [facility] Protocol Isosorbide Mononitrate 60 mg 04/23/21 10:00 05/02/21 09:46 Isosorbide Mononitrate Er 60 Mg Tab PO 60 mg QDAY PATRICE Administration Melatonin 10 mg 05/02/21 22:00 Melatonin 5 Mg Tab PO QHS PATRICE Ondansetron HCl 4 mg 04/23/21 12:26 Ondansetron 4 Mg/2 Ml Inj IV Q8H PRN Nausea And Vomiting Oxycodone/Acetaminophen 1 tab 04/23/21 12:26 04/29/21 05:13 Oxycodone /Acetaminophen 5-325mg Tab PO 1 tab Q16H PRN Administration Pain, Moderate (4-6) Sodium Chloride 10 ml 04/23/21 22:00 05/02/21 09:47 Sodium Chloride 0.9% 10 Ml Flush Syringe IV 10 ml BID PATRICE Administration Sodium Chloride 10 ml 04/23/21 12:26 Sodium Chloride 0.9% 10 Ml Flush Syringe IV PRN PRN LINE FLUSH Valsartan 160 mg 05/01/21 10:00 05/02/21 09:46 Valsartan 160mg Tab PO 160 mg DAILY PATRICE Administration Zinc Sulfate 220 mg 04/26/21 15:00 05/02/21 09:46 Zinc Sulfate 220 Mg Cap PO 220 mg BID PATRICE Administration Nutrition/Malnutrition Assess - Dietary Evaluation Nutrition/Malnutrition Findings: Nutrition Notes Start: 04/30/21 10:58 Freq: Status: Active Protocol: Document 04/30/21 10:58 VALERY (Rec: 04/30/21 10:59 VALERY [email or web address]) Nutrition Notes Need for Assessment generated from: LOS Initial or Follow up Brief Note Current Diet Cardiac/Consistent CHO with 1. 5L fluid restriction Subjective/Other Information Pt screened for LOS. He has consumed 100% of meals since admission. Burn Absent Trauma Absent Minimum of two criteria No Nutrition Intervention Revisit per MD consult or patient Sign Off request:
[2021-05-02] MEDS: MELATONIN 5 MG TAB PO SCH (22:38)
[2021-05-03] MEDS: HEPARIN 5,000 UNIT/1 ML VIAL SUB-Q SCH ×3 (06:38→21:51)
[2021-05-03] MEDS: FUROSEMIDE 40 MG TAB PO SCH ×2 (06:38→17:39)
[2021-05-03] MEDS: hydrALAZINE 100 MG TAB PO SCH ×3 (06:38→21:50)
--- NOTE | 2021-05-03 07:33 | Progress Note ---
Assessment and Plan Assessment and plan: #CoVID 19 infection pneumonia-resolved #Acute hypoxic respiratory failure-resolved - baseline oxygen requirements: None - supplemental oxygen: Currently on 3 L nasal cannula -Continue remdesivir x5 days and dexamethasone x10 days. Infectious disease consulted; appreciate recs. - Continue protocol: continue pulse oximetry, wean oxygen as tolerated, ordered incentive spirometry and educated patient on how to use it and its importance. Continue droplet and contact isolation. Encouraging patient to prone and ambulate. -Pulmonology consulted; appreciate recs. IV Lasix 20 mg as needed for volume control. - continue to monitor #Acute on chronic (systolic/diastolic) heart failure-resolved - Continue CHF exacerbation protocol: Telemetry, Strict I/O, monitor urine output every shift, daily weights, afterload reduction, low-sodium diet, and fluid restriction of approximately 1.5 mL/day Continue p.o. Lasix 40 mg twice daily - Supplemental oxygen: 3 L nasal cannula - ProBNP on admission: 853 - Cardiology consulted; appreciate recs - TTE reveals severe global hypokinesis with EF 15-20% - Continue to monitor #Hypertensive urgencyresolved #CAD Patient was not compliant with home antihypertensives. Continue Coreg 25 mg twice daily, losartan 100 mg daily, po hydralazine 100mg q8hrs, Imdur 60 mg daily, ASA 81 mg daily Counseled patient about the importance of medication compliance. #Insulin dependent type II diabetes mellitus - hemoglobin A1c: Pending - home regimen: NPH 70/30 15 units twice daily - current regimen: - blood glucose goal 140-180 while inpatient - continue to monitor #Pulmonary hypertension continue medical management, outpatient pulmonary follow-up. #Hypokalemiaresolved Repleted. Continue to monitor. #Hyperkalemiaresolved #Obesity #Weight loss counseling #Exercise counseling - BMI 41 - Counseled patient on the importance of weight loss, incorporating exercise, and dietary changes (lean meats, fresh fruits and vegetables, and water intake). Patient expresses understanding. - Time: +15 min #Advanced care planning -Disease education conducted, care plan discussed, diagnoses discussed, prognosis discussed, and patient acknowledges understanding with care plan -Time: +30 min #Discharge planning - PT/OT recommended subacute rehab. - Case Management made aware. Pending placement. Disposition Plan: Pending placement Total Time Spent with Patient (Minutes): 45 minutes History Interval history: No acute events over night. The patient denies fevers, chills, nausea, vomiting, abdominal pain, chest pain/pressure, shortness of breath, urinary symptoms, weakness, or confusion. Hospitalist Physical - Constitutional Vitals: Temp Pulse Resp BP Pulse Ox 98.0 F 63 16 176/79 100 05/03/21 04:03 05/03/21 04:03 05/03/21 04:03 05/03/21 04:03 05/03/21 04:03 General appearance: Present: no acute distress, well-nourished, obese - EENT Eyes: Present: PERRL, EOM intact ENT: hearing intact, clear oral mucosa, dentition normal - Neck Neck: Present: supple, normal ROM - Respiratory Respiratory effort: normal Respiratory: bilateral: diminished - Cardiovascular Rhythm: regular Heart Sounds: Present: S1 & S2 - Extremities Extremities: no ischemia, pulses intact, pulses symmetrical, No edema, normal temperature, normal color Peripheral Pulses: within normal limits - Abdominal General gastrointestinal: soft, non-tender, non-distended, normal bowel sounds - Integumentary Integumentary: Present: clear, warm, dry - Psychiatric Psychiatric: appropriate mood/affect, cooperative - Neurologic Neurologic: CNII-XII intact, moves all extremities - Allied Health Allied health notes reviewed: nursing HEART Score - HEART Score Troponin: Troponin T < 0.010 ng/mL (0.00-0.029) 04/23/21 08:01 Results - Labs CBC & Chem 7: 04/28/21 05:57 04/28/21 05:57 Labs: Laboratory Last Values WBC 8.8 K/mm3 (4.5-11.0) 04/28/21 05:57 RBC 4.72 M/mm3 (3.65-5.03) 04/28/21 05:57 Hgb 11.7 gm/dl (11.8-15.2) L 04/28/21 05:57 Hct 38.8 % (35.5-45.6) 04/28/21 05:57 MCV 82 fl (84-94) L 04/28/21 05:57 MCH 25 pg (28-32) L 04/28/21 05:57 MCHC 30 % (32-34) L 04/28/21 05:57 RDW 22.0 % (13.2-15.2) H 04/28/21 05:57 Plt Count 312 K/mm3 (140-440) 04/28/21 05:57 Lymph % (Auto) 13.1 % (13.4-35.0) L 04/28/21 05:57 [place] % (Auto) 6.7 % (0.0-7.3) 04/28/21 05:57 Eos % (Auto) 0.0 % (0.0-4.3) 04/28/21 05:57 Baso % (Auto) 0.1 % (0.0-1.8) 04/28/21 05:57 Lymph # (Auto) 1.1 K/mm3 (1.2-5.4) L 04/28/21 05:57 [place] # (Auto) 0.6 K/mm3 (0.0-0.8) 04/28/21 05:57 Eos # (Auto) 0.0 K/mm3 (0.0-0.4) 04/28/21 05:57 Baso # (Auto) 0.0 K/mm3 (0.0-0.1) 04/28/21 05:57 Seg Neutrophils % 80.1 % (40.0-70.0) H 04/28/21 05:57 Seg Neutrophils # 7.0 K/mm3 (1.8-7.7) 04/28/21 05:57 D-Dimer 386.73 ng/mlDDU (0-234) H 04/27/21 10:48 Sodium 139 mmol/L (137-145) 04/28/21 05:57 Potassium 4.5 mmol/L (3.6-5.0) 04/28/21 05:57 Chloride 101.7 mmol/L (98-107) 04/28/21 05:57 Carbon Dioxide 25 mmol/L (22-30) 04/28/21 05:57 Anion Gap 17 mmol/L 04/28/21 05:57 BUN 29 mg/dL (9-20) H 04/28/21 05:57 Creatinine 1.1 mg/dL (0.8-1.3) 04/28/21 05:57 Estimated GFR > 60 ml/min 04/28/21 05:57 BUN/Creatinine Ratio 26 % 04/28/21 05:57 Glucose 198 mg/dL (75-100) H 04/28/21 05:57 POC Glucose 177 mg/dL (70-105) H 05/02/21 22:23 Hemoglobin A1c 6.8 % (4-6) H 04/27/21 10:48 Calcium 8.6 mg/dL (8.4-10.2) 04/28/21 05:57 Magnesium 2.00 mg/dL (1.7-2.3) 04/23/21 08:01 Total Bilirubin 0.20 mg/dL (0.1-1.2) 04/27/21 10:48 AST 9 units/L (5-40) 04/27/21 10:48 ALT 20 units/L (7-56) 04/27/21 10:48 Alkaline Phosphatase 104 units/L (35-129) 04/27/21 10:48 Troponin T < 0.010 ng/mL (0.00-0.029) 04/23/21 08:01 C-Reactive Protein 0.90 mg/dL (0.00-1.30) 04/27/21 10:48 NT-Pro-B Natriuret Pep 853.2 pg/mL (0-900) 04/23/21 08:01 Total Protein 7.2 g/dL (6.3-8.2) 04/27/21 10:48 Albumin 3.5 g/dL (3.9-5) L 04/27/21 10:48 Albumin/Globulin Ratio 0.9 % 04/27/21 10:48 TSH 1.520 mlU/mL (0.270-4.200) 04/23/21 13:46 Free T4 1.24 ng/dL (0.76-1.46) 04/23/21 13:46 Coronavirus (PCR) Negative (Negative) 05/01/21 09:45 Goyal/IV: Voiding Method Toilet Active Medications - Current Medications Current Medications: Generic Name Dose Route Start Last Admin Trade Name Freq PRN Reason Stop Dose Admin Acetaminophen 650 mg 04/23/21 12:26 04/28/21 15:06 Acetaminophen 325 Mg Tab PO 650 mg Q4H PRN Administration Pain MILD(1-3)/Fever >100.5/HINDS Ascorbic Acid 1,000 mg 04/26/21 15:00 05/02/21 22:39 Ascorbic Acid 500 Mg Tab PO 1,000 mg BID PATRICE Administration Aspirin 81 mg 04/24/21 13:00 05/02/21 09:46 Aspirin Ec 81 Mg Tab PO 81 mg DAILY PATRICE Administration Carvedilol 25 mg 05/02/21 10:00 05/02/21 22:37 Carvedilol 12.5 Mg Tab PO 25 mg BID PATRICE Administration Cholecalciferol 5,000 unit 04/26/21 15:00 05/02/21 09:46 Cholecalciferol (Vit D3) 5,000 Unit Tab PO 5,000 unit DAILY PATRICE Administration Dextrose 50 ml 04/27/21 08:15 Dextrose 50% In Water (25gm) 50 Ml Syringe IV Q30MIN PRN Hypoglycemia Protocol Furosemide 40 mg 04/28/21 18:00 05/03/21 06:38 Furosemide 40 Mg Tab PO 40 mg 0600,1800 PATRICE Administration Guaifenesin 600 mg 05/01/21 12:00 05/02/21 22:39 Guaifenesin Er 600 Mg Tab PO 600 mg BID PATRICE Administration Heparin Sodium (Porcine) 5,000 unit 04/26/21 15:00 05/03/21 06:38 Heparin 5,000 Unit/1 Ml Vial SUB-Q 5,000 unit Q8HR PATRICE Administration Hydralazine HCl 10 mg 04/24/21 00:26 04/30/21 19:29 Hydralazine 20 Mg/1 Ml Inj IV 10 mg Q6HR PRN Administration Hypertension Hydralazine HCl 100 mg 04/30/21 14:00 05/03/21 06:38 Hydralazine 100 Mg Tab PO 100 mg Q8HR PATRICE Administration Hydromorphone HCl 0.5 mg 04/23/21 12:26 Hydromorphone 1 Mg/1 Ml Inj IV Q23H PRN Pain , Severe (7-10) Insulin Human Isoph/Insulin Regular 15 unit 05/01/21 08:00 05/02/21 17:24 Insulin Nph/Regular 70/30 Inj SUB-Q 15 unit BIDDIAB PATRICE Administration Insulin Human Regular 0 units 04/26/21 16:30 05/02/21 22:41 Insulin Regular, Human 100 Units/1 Ml SUB-Q 2 units ACHS PATRICE Administration Protocol Isosorbide Mononitrate 60 mg 04/23/21 10:00 05/02/21 09:46 Isosorbide Mononitrate Er 60 Mg Tab PO 60 mg QDAY PATRICE Administration Melatonin 10 mg 05/02/21 22:00 05/02/21 22:38 Melatonin 5 Mg Tab PO 10 mg QHS PATRICE Administration Ondansetron HCl 4 mg 04/23/21 12:26 Ondansetron 4 Mg/2 Ml Inj IV Q8H PRN Nausea And Vomiting Oxycodone/Acetaminophen 1 tab 04/23/21 12:26 04/29/21 05:13 Oxycodone /Acetaminophen 5-325mg Tab PO 1 tab Q16H PRN Administration Pain, Moderate (4-6) Sodium Chloride 10 ml 04/23/21 22:00 05/02/21 22:40 Sodium Chloride 0.9% 10 Ml Flush Syringe IV 10 ml BID PATRICE Administration Sodium Chloride 10 ml 04/23/21 12:26 Sodium Chloride 0.9% 10 Ml Flush Syringe IV PRN PRN LINE FLUSH Valsartan 160 mg 05/01/21 10:00 05/02/21 09:46 Valsartan 160mg Tab PO 160 mg DAILY PATRICE Administration Zinc Sulfate 220 mg 04/26/21 15:00 05/02/21 22:38 Zinc Sulfate 220 Mg Cap PO 220 mg BID PATRICE Administration Nutrition/Malnutrition Assess - Dietary Evaluation Nutrition/Malnutrition Findings: Nutrition Notes Start: 04/30/21 10:58 Freq: Status: Active Protocol: Document 04/30/21 10:58 VALERY (Rec: 04/30/21 10:59 VALERY [email or web address]) Nutrition Notes Need for Assessment generated from: LOS Initial or Follow up Brief Note Current Diet Cardiac/Consistent CHO with 1. 5L fluid restriction Subjective/Other Information Pt screened for LOS. He has consumed 100% of meals since admission. Burn Absent Trauma Absent Minimum of two criteria No Nutrition Intervention Revisit per MD consult or patient Sign Off request:
[2021-05-03] MEDS: INSULIN REGULAR, HUMAN 100 UNITS/1 ML SUB-Q SCH ×3 (10:00→17:38)
[2021-05-03] MEDS: INSULIN NPH/REGULAR 70/30 INJ SUB-Q SCH ×2 (10:01→17:38)
[2021-05-03] MEDS: VALSARTAN 160MG TAB PO SCH (10:02)
[2021-05-03] MEDS: ASCORBIC ACID 500 MG TAB PO SCH ×2 (10:02→21:50)
[2021-05-03] MEDS: ASPIRIN EC 81 MG TAB PO SCH (10:03)
[2021-05-03] MEDS: carvediloL 12.5 MG TAB PO SCH ×2 (10:03→21:49)
[2021-05-03] MEDS: CHOLECALCIFEROL (VIT D3) 5,000 UNIT TAB PO SCH (10:03)
[2021-05-03] MEDS: ZINC SULFATE 220 MG CAP PO SCH ×2 (10:04→21:49)
[2021-05-03] MEDS: guaiFENesin ER 600 MG TAB PO SCH ×2 (10:04→21:50)
[2021-05-03] MEDS: ACETAMINOPHEN 325 MG TAB PO PRN (10:12)
--- NOTE | 2021-05-03 14:06 | Progress Note ---
Assessment and Plan - Patient Problems (1) CHF exacerbation Current Visit: Yes Status: Acute Qualifiers: Heart failure type: systolic Qualified Code(s): I50.23 - Acute on chronic systolic (congestive) heart failure Plan to address problem: Patient presented with acute Covid infection, and acute exacerbation of chronic systolic heart failure. He has a nonischemic cardiomyopathy, cardiac catheterization in September 2018 reported biventricular heart failure with left ventricular ejection fraction 20%, severe pulmonary hypertension with pulmonary artery systolic pressure of 85, and angiographically normal coronary arteries. His current heart failure exacerbation is likely due to his noncompliance with recommended medical therapy. We will continue guideline directed medical therapy and continue conservative cardiac medical management. Outpatient follow-up with his primary survey interviewer is recommended for future therapies including device therapies as indicated. We will sign off and follow on a as needed basis. Subjective Date of service: 05/03/21 Principal diagnosis: Shortness of breath. Interval history: Patient is comfortable, no cardiac complaints, no new cardiac events reported. Objective Vital Signs Temp Pulse Resp BP Pulse Ox 05/03/21 12:42 97.9 F 18 156/71 100 05/03/21 10:03 156/69 05/03/21 10:02 156/69 05/03/21 10:01 72 156/69 100 05/03/21 07:29 17 94 05/03/21 04:03 98.0 F 63 16 176/79 100 05/02/21 20:54 69 16 181/73 98 05/02/21 17:32 97.7 F 63 18 174/74 98 - Physical Examination Narrative exam: Full physical exam is deferred due to the patient's presentation with acute Covid infection. General: No Apparent Distress HEENT: Positive: Normocephaly Neck: Positive: neck supple, trachea midline, JVD/HJR (Elevated JVP) Neuro: Positive: Grossly Intact Abdomen: Positive: Unremarkable, Soft (Obese) Extremities: Present: normal, +1 Edema, warm - Imaging and Cardiology EKG: report reviewed Echo: report reviewed
[2021-05-03] MEDS: MELATONIN 5 MG TAB PO SCH (21:48)
[2021-05-04] MEDS: INSULIN REGULAR, HUMAN 100 UNITS/1 ML SUB-Q SCH ×4 (00:29→17:39)
[2021-05-04] MEDS: FUROSEMIDE 40 MG TAB PO SCH ×2 (05:43→17:54)
[2021-05-04] MEDS: HEPARIN 5,000 UNIT/1 ML VIAL SUB-Q SCH ×3 (05:44→21:58)
[2021-05-04] MEDS: hydrALAZINE 100 MG TAB PO SCH ×3 (06:28→21:59)
[2021-05-04] MEDS: INSULIN NPH/REGULAR 70/30 INJ SUB-Q SCH ×2 (08:21→17:54)
--- NOTE | 2021-05-04 08:41 | Progress Note ---
Hospitalist Physical - Constitutional Vitals: Temp Pulse Resp BP Pulse Ox 97.3 F L 64 18 156/92 99 05/04/21 06:08 05/04/21 06:08 05/04/21 06:08 05/04/21 06:08 05/04/21 06:08 General appearance: Present: no acute distress, well-nourished, obese HEART Score - HEART Score Troponin: Troponin T < 0.010 ng/mL (0.00-0.029) 04/23/21 08:01 Results - Labs CBC & Chem 7: 04/28/21 05:57 04/28/21 05:57 Labs: Laboratory Last Values WBC 8.8 K/mm3 (4.5-11.0) 04/28/21 05:57 RBC 4.72 M/mm3 (3.65-5.03) 04/28/21 05:57 Hgb 11.7 gm/dl (11.8-15.2) L 04/28/21 05:57 Hct 38.8 % (35.5-45.6) 04/28/21 05:57 MCV 82 fl (84-94) L 04/28/21 05:57 MCH 25 pg (28-32) L 04/28/21 05:57 MCHC 30 % (32-34) L 04/28/21 05:57 RDW 22.0 % (13.2-15.2) H 04/28/21 05:57 Plt Count 312 K/mm3 (140-440) 04/28/21 05:57 Lymph % (Auto) 13.1 % (13.4-35.0) L 04/28/21 05:57 [place] % (Auto) 6.7 % (0.0-7.3) 04/28/21 05:57 Eos % (Auto) 0.0 % (0.0-4.3) 04/28/21 05:57 Baso % (Auto) 0.1 % (0.0-1.8) 04/28/21 05:57 Lymph # (Auto) 1.1 K/mm3 (1.2-5.4) L 04/28/21 05:57 [place] # (Auto) 0.6 K/mm3 (0.0-0.8) 04/28/21 05:57 Eos # (Auto) 0.0 K/mm3 (0.0-0.4) 04/28/21 05:57 Baso # (Auto) 0.0 K/mm3 (0.0-0.1) 04/28/21 05:57 Seg Neutrophils % 80.1 % (40.0-70.0) H 04/28/21 05:57 Seg Neutrophils # 7.0 K/mm3 (1.8-7.7) 04/28/21 05:57 D-Dimer 386.73 ng/mlDDU (0-234) H 04/27/21 10:48 Sodium 139 mmol/L (137-145) 04/28/21 05:57 Potassium 4.5 mmol/L (3.6-5.0) 04/28/21 05:57 Chloride 101.7 mmol/L (98-107) 04/28/21 05:57 Carbon Dioxide 25 mmol/L (22-30) 04/28/21 05:57 Anion Gap 17 mmol/L 04/28/21 05:57 BUN 29 mg/dL (9-20) H 04/28/21 05:57 Creatinine 1.1 mg/dL (0.8-1.3) 04/28/21 05:57 Estimated GFR > 60 ml/min 04/28/21 05:57 BUN/Creatinine Ratio 26 % 04/28/21 05:57 Glucose 198 mg/dL (75-100) H 04/28/21 05:57 POC Glucose 69 mg/dL (70-105) L 05/04/21 08:13 Hemoglobin A1c 6.8 % (4-6) H 04/27/21 10:48 Calcium 8.6 mg/dL (8.4-10.2) 04/28/21 05:57 Magnesium 2.00 mg/dL (1.7-2.3) 04/23/21 08:01 Total Bilirubin 0.20 mg/dL (0.1-1.2) 04/27/21 10:48 AST 9 units/L (5-40) 04/27/21 10:48 ALT 20 units/L (7-56) 04/27/21 10:48 Alkaline Phosphatase 104 units/L (35-129) 04/27/21 10:48 Troponin T < 0.010 ng/mL (0.00-0.029) 04/23/21 08:01 C-Reactive Protein 0.90 mg/dL (0.00-1.30) 04/27/21 10:48 NT-Pro-B Natriuret Pep 853.2 pg/mL (0-900) 04/23/21 08:01 Total Protein 7.2 g/dL (6.3-8.2) 04/27/21 10:48 Albumin 3.5 g/dL (3.9-5) L 04/27/21 10:48 Albumin/Globulin Ratio 0.9 % 04/27/21 10:48 TSH 1.520 mlU/mL (0.270-4.200) 04/23/21 13:46 Free T4 1.24 ng/dL (0.76-1.46) 04/23/21 13:46 Coronavirus (PCR) Negative (Negative) 05/01/21 09:45 Goyal/IV: Voiding Method Urinal Active Medications - Current Medications Current Medications: Generic Name Dose Route Start Last Admin Trade Name Freq PRN Reason Stop Dose Admin Acetaminophen 650 mg 04/23/21 12:26 05/03/21 10:12 Acetaminophen 325 Mg Tab PO 650 mg Q4H PRN Administration Pain MILD(1-3)/Fever >100.5/HINDS Ascorbic Acid 1,000 mg 04/26/21 15:00 05/03/21 21:50 Ascorbic Acid 500 Mg Tab PO 1,000 mg BID PATRICE Administration Aspirin 81 mg 04/24/21 13:00 05/03/21 10:03 Aspirin Ec 81 Mg Tab PO 81 mg DAILY PATRICE Administration Carvedilol 25 mg 05/02/21 10:00 05/03/21 21:49 Carvedilol 12.5 Mg Tab PO 25 mg BID PATRICE Administration Cholecalciferol 5,000 unit 04/26/21 15:00 05/03/21 10:03 Cholecalciferol (Vit D3) 5,000 Unit Tab PO 5,000 unit DAILY PATRICE Administration Dextrose 50 ml 04/27/21 08:15 Dextrose 50% In Water (25gm) 50 Ml Syringe IV Q30MIN PRN Hypoglycemia Protocol Furosemide 40 mg 04/28/21 18:00 05/04/21 05:43 Furosemide 40 Mg Tab PO 40 mg 0600,1800 PATRICE Administration Guaifenesin 600 mg 05/01/21 12:00 05/03/21 21:50 Guaifenesin Er 600 Mg Tab PO 600 mg BID PATRICE Administration Heparin Sodium (Porcine) 5,000 unit 04/26/21 15:00 05/04/21 05:44 Heparin 5,000 Unit/1 Ml Vial SUB-Q 5,000 unit Q8HR PATRICE Administration Hydralazine HCl 10 mg 04/24/21 00:26 04/30/21 19:29 Hydralazine 20 Mg/1 Ml Inj IV 10 mg Q6HR PRN Administration Hypertension Hydralazine HCl 100 mg 04/30/21 14:00 05/04/21 06:28 Hydralazine 100 Mg Tab PO 100 mg Q8HR PATRICE Administration Hydromorphone HCl 0.5 mg 04/23/21 12:26 Hydromorphone 1 Mg/1 Ml Inj IV Q23H PRN Pain , Severe (7-10) Insulin Human Isoph/Insulin Regular 12 unit 05/04/21 08:40 Insulin Nph/Regular 70/30 Inj SUB-Q BIDDIAB [facility] Insulin Human Regular 0 units 04/26/21 16:30 05/04/21 08:21 Insulin Regular, Human 100 Units/1 Ml SUB-Q Not Given ACHS [facility] Protocol Isosorbide Mononitrate 60 mg 04/23/21 10:00 05/03/21 10:03 Isosorbide Mononitrate Er 60 Mg Tab PO 60 mg QDAY [facility] Administration Melatonin 10 mg 05/02/21 22:00 05/03/21 21:48 Melatonin 5 Mg Tab PO 10 mg QHS PATRICE Administration Ondansetron HCl 4 mg 04/23/21 12:26 Ondansetron 4 Mg/2 Ml Inj IV Q8H PRN Nausea And Vomiting Oxycodone/Acetaminophen 1 tab 04/23/21 12:26 04/29/21 05:13 Oxycodone /Acetaminophen 5-325mg Tab PO 1 tab Q16H PRN Administration Pain, Moderate (4-6) Sodium Chloride 10 ml 04/23/21 22:00 05/03/21 21:50 Sodium Chloride 0.9% 10 Ml Flush Syringe IV 10 ml BID PATRICE Administration Sodium Chloride 10 ml 04/23/21 12:26 Sodium Chloride 0.9% 10 Ml Flush Syringe IV PRN PRN LINE FLUSH Valsartan 160 mg 05/01/21 10:00 05/03/21 10:02 Valsartan 160mg Tab PO 160 mg DAILY PATRICE Administration Zinc Sulfate 220 mg 04/26/21 15:00 05/03/21 21:49 Zinc Sulfate 220 Mg Cap PO 220 mg BID PATRICE Administration Nutrition/Malnutrition Assess - Dietary Evaluation Nutrition/Malnutrition Findings: Nutrition Notes Start: 04/30/21 10:58 Freq: Status: Active Protocol: Document 04/30/21 10:58 VALERY (Rec: 04/30/21 10:59 [email or web address] [id number]) Nutrition Notes Need for Assessment generated from: LOS Initial or Follow up Brief Note Current Diet Cardiac/Consistent CHO with 1. 5L fluid restriction Subjective/Other Information Pt screened for LOS. He has consumed 100% of meals since admission. Burn Absent Trauma Absent Minimum of two criteria No Nutrition Intervention Revisit per MD consult or patient Sign Off request:
[2021-05-04] MEDS: ASCORBIC ACID 500 MG TAB PO SCH ×2 (09:56→21:59)
[2021-05-04] MEDS: ASPIRIN EC 81 MG TAB PO SCH (09:56)
[2021-05-04] MEDS: ZINC SULFATE 220 MG CAP PO SCH ×2 (09:56→22:53)
[2021-05-04] MEDS: carvediloL 12.5 MG TAB PO SCH ×2 (09:56→22:49)
[2021-05-04] MEDS: guaiFENesin ER 600 MG TAB PO SCH ×2 (09:57→21:59)
[2021-05-04] MEDS: CHOLECALCIFEROL (VIT D3) 5,000 UNIT TAB PO SCH (09:58)
[2021-05-04] MEDS: VALSARTAN 160MG TAB PO SCH (10:06)
[2021-05-04] MEDS: MELATONIN 5 MG TAB PO SCH (21:59)
[2021-05-05] MEDS: INSULIN REGULAR, HUMAN 100 UNITS/1 ML SUB-Q SCH ×5 (02:51→22:34)
[2021-05-05] MEDS: HEPARIN 5,000 UNIT/1 ML VIAL SUB-Q SCH ×3 (06:01→22:36)
[2021-05-05] MEDS: FUROSEMIDE 40 MG TAB PO SCH ×2 (06:01→18:26)
[2021-05-05] MEDS: hydrALAZINE 100 MG TAB PO SCH ×3 (06:02→23:27)
--- NOTE | 2021-05-05 10:12 | Progress Note ---
Assessment and Plan - Patient Problems (1) CHF exacerbation Current Visit: Yes Status: Acute Qualifiers: Heart failure type: systolic Qualified Code(s): I50.23 - Acute on chronic systolic (congestive) heart failure Plan to address problem: Patient presented with acute Covid infection, and acute exacerbation of chronic systolic heart failure. He has a nonischemic cardiomyopathy, cardiac catheterization in September 2018 reported biventricular heart failure with left ventricular ejection fraction 20%, severe pulmonary hypertension with pulmonary artery systolic pressure of 85, and angiographically normal coronary arteries. His current heart failure exacerbation is likely due to his noncompliance with recommended medical therapy. We will continue guideline directed medical therapy and continue conservative cardiac medical management. 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 We will follow on a as needed basis. Subjective Date of service: 05/05/21 Principal diagnosis: Shortness of breath. Interval history: Patient is comfortable, no cardiac complaints, no new cardiac events reported. Objective Vital Signs Temp Pulse Resp BP Pulse Ox 05/05/21 02:00 20 96 05/04/21 23:13 97.8 F 69 18 147/69 93 05/04/21 22:49 69 147/67 05/04/21 15:24 97.8 F 60 18 186/77 97 05/04/21 14:00 95 - Physical Examination Narrative exam: Full physical exam is deferred due to the patient's presentation with acute Covid infection. General: No Apparent Distress Extremities: Present: warm - Imaging and Cardiology EKG: report reviewed Echo: report reviewed
[2021-05-05] MEDS: CHOLECALCIFEROL (VIT D3) 5,000 UNIT TAB PO SCH (10:27)
[2021-05-05] MEDS: guaiFENesin ER 600 MG TAB PO SCH ×2 (10:27→22:38)
[2021-05-05] MEDS: ASCORBIC ACID 500 MG TAB PO SCH ×2 (10:27→22:36)
[2021-05-05] MEDS: VALSARTAN 160MG TAB PO SCH (10:28)
[2021-05-05] MEDS: ZINC SULFATE 220 MG CAP PO SCH ×2 (10:29→22:38)
[2021-05-05] MEDS: INSULIN NPH/REGULAR 70/30 INJ SUB-Q SCH ×2 (10:29→18:26)
[2021-05-05] MEDS: carvediloL 12.5 MG TAB PO SCH ×2 (10:29→23:26)
[2021-05-05] MEDS: ASPIRIN EC 81 MG TAB PO SCH (10:30)
[2021-05-05] MEDS: MELATONIN 5 MG TAB PO SCH (22:37)
[2021-05-06] MEDS: HEPARIN 5,000 UNIT/1 ML VIAL SUB-Q SCH (06:16)
[2021-05-06] MEDS: FUROSEMIDE 40 MG TAB PO SCH (06:16)
[2021-05-06] MEDS: hydrALAZINE 100 MG TAB PO SCH (06:16)
--- NOTE | 2021-05-06 07:55 | Progress Note ---
Hospitalist Physical - Constitutional Vitals: Temp Pulse Resp BP Pulse Ox 98.6 F 64 18 177/93 100 05/06/21 06:05 05/06/21 06:05 05/06/21 06:05 05/06/21 06:05 05/06/21 06:05 General appearance: Present: no acute distress, well-nourished, obese HEART Score - HEART Score Troponin: Troponin T < 0.010 ng/mL (0.00-0.029) 04/23/21 08:01 Results - Labs CBC & Chem 7: 04/28/21 05:57 04/28/21 05:57 Labs: Laboratory Last Values WBC 8.8 K/mm3 (4.5-11.0) 04/28/21 05:57 RBC 4.72 M/mm3 (3.65-5.03) 04/28/21 05:57 Hgb 11.7 gm/dl (11.8-15.2) L 04/28/21 05:57 Hct 38.8 % (35.5-45.6) 04/28/21 05:57 MCV 82 fl (84-94) L 04/28/21 05:57 MCH 25 pg (28-32) L 04/28/21 05:57 MCHC 30 % (32-34) L 04/28/21 05:57 RDW 22.0 % (13.2-15.2) H 04/28/21 05:57 Plt Count 312 K/mm3 (140-440) 04/28/21 05:57 Lymph % (Auto) 13.1 % (13.4-35.0) L 04/28/21 05:57 [place] % (Auto) 6.7 % (0.0-7.3) 04/28/21 05:57 Eos % (Auto) 0.0 % (0.0-4.3) 04/28/21 05:57 Baso % (Auto) 0.1 % (0.0-1.8) 04/28/21 05:57 Lymph # (Auto) 1.1 K/mm3 (1.2-5.4) L 04/28/21 05:57 [place] # (Auto) 0.6 K/mm3 (0.0-0.8) 04/28/21 05:57 Eos # (Auto) 0.0 K/mm3 (0.0-0.4) 04/28/21 05:57 Baso # (Auto) 0.0 K/mm3 (0.0-0.1) 04/28/21 05:57 Seg Neutrophils % 80.1 % (40.0-70.0) H 04/28/21 05:57 Seg Neutrophils # 7.0 K/mm3 (1.8-7.7) 04/28/21 05:57 D-Dimer 386.73 ng/mlDDU (0-234) H 04/27/21 10:48 Sodium 139 mmol/L (137-145) 04/28/21 05:57 Potassium 4.5 mmol/L (3.6-5.0) 04/28/21 05:57 Chloride 101.7 mmol/L (98-107) 04/28/21 05:57 Carbon Dioxide 25 mmol/L (22-30) 04/28/21 05:57 Anion Gap 17 mmol/L 04/28/21 05:57 BUN 29 mg/dL (9-20) H 04/28/21 05:57 Creatinine 1.1 mg/dL (0.8-1.3) 04/28/21 05:57 Estimated GFR > 60 ml/min 04/28/21 05:57 BUN/Creatinine Ratio 26 % 04/28/21 05:57 Glucose 198 mg/dL (75-100) H 04/28/21 05:57 POC Glucose 205 mg/dL (70-105) H 05/05/21 21:19 Hemoglobin A1c 6.8 % (4-6) H 04/27/21 10:48 Calcium 8.6 mg/dL (8.4-10.2) 04/28/21 05:57 Magnesium 2.00 mg/dL (1.7-2.3) 04/23/21 08:01 Total Bilirubin 0.20 mg/dL (0.1-1.2) 04/27/21 10:48 AST 9 units/L (5-40) 04/27/21 10:48 ALT 20 units/L (7-56) 04/27/21 10:48 Alkaline Phosphatase 104 units/L (35-129) 04/27/21 10:48 Troponin T < 0.010 ng/mL (0.00-0.029) 04/23/21 08:01 C-Reactive Protein 0.90 mg/dL (0.00-1.30) 04/27/21 10:48 NT-Pro-B Natriuret Pep 853.2 pg/mL (0-900) 04/23/21 08:01 Total Protein 7.2 g/dL (6.3-8.2) 04/27/21 10:48 Albumin 3.5 g/dL (3.9-5) L 04/27/21 10:48 Albumin/Globulin Ratio 0.9 % 04/27/21 10:48 TSH 1.520 mlU/mL (0.270-4.200) 04/23/21 13:46 Free T4 1.24 ng/dL (0.76-1.46) 04/23/21 13:46 Coronavirus (PCR) Negative (Negative) 05/01/21 09:45 Goyal/IV: Voiding Method Urinal Active Medications - Current Medications Current Medications: Generic Name Dose Route Start Last Admin Trade Name Freq PRN Reason Stop Dose Admin Acetaminophen 650 mg 04/23/21 12:26 05/03/21 10:12 Acetaminophen 325 Mg Tab PO 650 mg Q4H PRN Administration Pain MILD(1-3)/Fever >100.5/HINDS Ascorbic Acid 1,000 mg 04/26/21 15:00 05/05/21 22:36 Ascorbic Acid 500 Mg Tab PO 1,000 mg BID PATRICE Administration Aspirin 81 mg 04/24/21 13:00 05/05/21 10:30 Aspirin Ec 81 Mg Tab PO 81 mg DAILY PATRICE Administration Carvedilol 25 mg 05/02/21 10:00 05/05/21 23:26 Carvedilol 12.5 Mg Tab PO 25 mg BID PATRICE Administration Cholecalciferol 5,000 unit 04/26/21 15:00 05/05/21 10:27 Cholecalciferol (Vit D3) 5,000 Unit Tab PO 5,000 unit DAILY PATRICE Administration Dextrose 50 ml 04/27/21 08:15 Dextrose 50% In Water (25gm) 50 Ml Syringe IV Q30MIN PRN Hypoglycemia Protocol Furosemide 40 mg 04/28/21 18:00 05/06/21 06:16 Furosemide 40 Mg Tab PO 40 mg 0600,1800 PATRICE Administration Guaifenesin 600 mg 05/01/21 12:00 05/05/21 22:38 Guaifenesin Er 600 Mg Tab PO 600 mg BID PATRICE Administration Heparin Sodium (Porcine) 5,000 unit 04/26/21 15:00 05/06/21 06:16 Heparin 5,000 Unit/1 Ml Vial SUB-Q 5,000 unit Q8HR PATRICE Administration Hydralazine HCl 10 mg 04/24/21 00:26 04/30/21 19:29 Hydralazine 20 Mg/1 Ml Inj IV 10 mg Q6HR PRN Administration Hypertension Hydralazine HCl 100 mg 04/30/21 14:00 05/06/21 06:16 Hydralazine 100 Mg Tab PO 100 mg Q8HR PATRICE Administration Hydromorphone HCl 0.5 mg 04/23/21 12:26 Hydromorphone 1 Mg/1 Ml Inj IV Q23H PRN Pain , Severe (7-10) Insulin Human Isoph/Insulin Regular 12 unit 05/04/21 17:00 05/05/21 18:26 Insulin Nph/Regular 70/30 Inj SUB-Q 12 unit BIDDIAB PATRICE Administration Insulin Human Regular 0 units 04/26/21 16:30 05/05/21 22:34 Insulin Regular, Human 100 Units/1 Ml SUB-Q 3 units ACHS PATRICE Administration Protocol Isosorbide Mononitrate 60 mg 04/23/21 10:00 05/05/21 10:31 Isosorbide Mononitrate Er 60 Mg Tab PO 60 mg QDAY PATRICE Administration Melatonin 10 mg 05/02/21 22:00 05/05/21 22:37 Melatonin 5 Mg Tab PO 10 mg QHS PATRICE Administration Ondansetron HCl 4 mg 04/23/21 12:26 Ondansetron 4 Mg/2 Ml Inj IV Q8H PRN Nausea And Vomiting Oxycodone/Acetaminophen 1 tab 04/23/21 12:26 04/29/21 05:13 Oxycodone /Acetaminophen 5-325mg Tab PO 1 tab Q16H PRN Administration Pain, Moderate (4-6) Sodium Chloride 10 ml 04/23/21 22:00 05/05/21 22:37 Sodium Chloride 0.9% 10 Ml Flush Syringe IV 10 ml BID PATRICE Administration Sodium Chloride 10 ml 04/23/21 12:26 Sodium Chloride 0.9% 10 Ml Flush Syringe IV PRN PRN LINE FLUSH Valsartan 160 mg 05/01/21 10:00 05/05/21 10:28 Valsartan 160mg Tab PO 160 mg DAILY PATRICE Administration Zinc Sulfate 220 mg 04/26/21 15:00 05/05/21 22:38 Zinc Sulfate 220 Mg Cap PO 220 mg BID PATRICE Administration Nutrition/Malnutrition Assess - Dietary Evaluation Nutrition/Malnutrition Findings: Nutrition Notes Start: 04/30/21 10:58 Freq: Status: Active Protocol: Document 04/30/21 10:58 VALERY (Rec: 04/30/21 10:59 [facility] [id number]) Nutrition Notes Need for Assessment generated from: LOS Initial or Follow up Brief Note Current Diet Cardiac/Consistent CHO with 1. 5L fluid restriction Subjective/Other Information Pt screened for LOS. He has consumed 100% of meals since admission. Burn Absent Trauma Absent Minimum of two criteria No Nutrition Intervention Revisit per MD consult or patient Sign Off request:
--- NOTE | 2021-05-06 07:55 | Discharge Summary ---
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 Follow up with: PRIMARY MD JAMES [Primary Care Provider] - 7 Days Prescriptions: hydrALAZINE [Apresoline TAB] 100 mg PO Q8HR 30 Days #90 tab carvediloL [Coreg] 25 mg PO BID 30 Days #120 tablet Valsartan [Diovan] 160 mg PO DAILY 30 Days #30 tablet ISOSORBIDE MONOnitrate [Imdur ER] 60 mg PO QDAY 30 Days #30 tablet Furosemide [Lasix TAB] 40 mg PO 0600,1800 30 Days #60 tablet
[2021-05-06] MEDS: INSULIN REGULAR, HUMAN 100 UNITS/1 ML SUB-Q SCH (08:31)
[2021-05-06 08:43] VITALS: BP 167/76
[2021-05-06] MEDS: ZINC SULFATE 220 MG CAP PO SCH (08:43)
[2021-05-06] MEDS: ASCORBIC ACID 500 MG TAB PO SCH (08:43)
[2021-05-06] MEDS: ASPIRIN EC 81 MG TAB PO SCH (08:44)
[2021-05-06] MEDS: CHOLECALCIFEROL (VIT D3) 5,000 UNIT TAB PO SCH (08:44)
[2021-05-06] MEDS: VALSARTAN 160MG TAB PO SCH (08:44)
[2021-05-06] MEDS: INSULIN NPH/REGULAR 70/30 INJ SUB-Q SCH (08:45)
[2021-05-06] MEDS: carvediloL 12.5 MG TAB PO SCH (08:45)
[2021-05-06] MEDS: guaiFENesin ER 600 MG TAB PO SCH (08:46)
== END 2021-05-06 09:05 | disposition home or self-care (01) | DRG 177 ==
LOC: ED 05:59 → 4A 12:27 → 3A 20:08
PROVIDERS: ADMIT Internal Medicine; ATTEND Student in an Organized Health Care Education/Training Program
PROC: XW033E5 Introduction of Remdesivir Anti-infective into Peripheral Vein, Percutaneous Approach, New Technology Group 5 (ICD-10-PCS; 2021-04-24)
PROC: 5A09357 Assistance with Respiratory Ventilation, Less than 24 Consecutive Hours, Continuous Positive Airway Pressure (ICD-10-PCS; principal; 2021-04-25)
DX: U07.1 COVID-19 (principal); J12.82 Pneumonia due to coronavirus disease 2019; J96.01 Acute respiratory failure with hypoxia; I50.23 Acute on chronic systolic (congestive) heart failure; E66.2 Morbid (severe) obesity with alveolar hypoventilation; I42.9 Cardiomyopathy, unspecified; Z68.41 Body mass index [BMI] 40.0-44.9, adult; I27.20 Pulmonary hypertension, unspecified; E11.9 Type 2 diabetes mellitus without complications; I11.0 Hypertensive heart disease with heart failure; I16.0 Hypertensive urgency; Z79.82 Long term (current) use of aspirin; Z79.899 Other long term (current) drug therapy; Z86.73 Personal history of transient ischemic attack (TIA), and cerebral infarction without residual deficits; Z83.3 Family history of diabetes mellitus; Z82.49 Family history of ischemic heart disease and other diseases of the circulatory system; M19.90 Unspecified osteoarthritis, unspecified site; E87.6 Hypokalemia; I25.10 Atherosclerotic heart disease of native coronary artery without angina pectoris; Z71.3 Dietary counseling and surveillance; E87.5 Hyperkalemia
CPT/HCPCS: 36415; 71045; 80048; 80053; 82962; 83036; 83735; 83880; 84439; 84443; 84484; 85025; 85379; 86140; 93005; 93306; 94660; 94760; G0378; Q0177; Q9967; J0360; J1644; J1815; J1940; J7050; J8540; U0003